=== PATIENT | male | born 1970 | race African-American/Black ===

== ENCOUNTER 2016-10-29 10:20 | Inpatient (IN) ==
[2016-10-29] MEDS ORDERED: MAGNESIUM SULF RIDER 4 GM in PREMIX 1 EACH IV PRN (10:45)
[2016-10-29] MEDS ORDERED: ZALEPLON 5 MG CAPSULE PO PRN (10:45)
[2016-10-29] MEDS ORDERED: DOCUSATE SODIUM 100 MG CAPSULE PO PRN (10:45)
[2016-10-29] MEDS ORDERED: ONDANSETRON 4 MG/2 ML VIAL IV PRN (10:45)
[2016-10-29 12:02] LABS: Basophils % 0.4 % (0.0-0.8); Eosinophils % 0.1 % (0.00-10.9); Hematocrit 47.3 VOL% (42.0-52.0); Hemoglobin 15.9 GM/DL (14.0-18.0); Immature Granulocytes % 0.3 %; Immature Granulocytes Absolute 0.02 #; Lymphocytes # 1.3 10*3/uL (1.4-4.0); Lymphocytes % 18.6 % (21.2-54.2); Mean Corpuscular HGB Conc 33.6 GM/DL (32-36); Mean Corpuscular Hemoglobin 29 PG (27-34); Mean Corpuscular Volume 84.8 FL (87-102); Mean Platelet Volume 9.7 FL (9.6-12.0); Monocytes # 0.8 10*3/uL (0.11-0.8); Monocytes % 12.2 % (1.7-12.7); Neutrophils # 4.6 10*3/uL (1.4-7.4); Neutrophils % 68.4 % (38.7-73.9); Platelet Count 233 T/CUMM (130-400); Red Blood Count 5.58 MC/CUMM (3.8-5.5); Red Cell Distribution Width 13.8 % (9.3-17.3); White Blood Count 6.8 T/CUMM (4-12)
--- NOTE | 2016-10-29 12:08 | EKG Report ---
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
[2016-10-29] MEDS ORDERED: DILTIAZEM 50 MG/10 ML VIAL IV ONE ×2 (12:20→12:23)
[2016-10-29] MEDS ORDERED: DILTIAZEM 100 MG VIAL.ADD IV ONE (12:21)
--- NOTE | 2016-10-29 12:27 | Cardiology History & Physical ---
<Lauren Joyce - Last Filed: 10/29/16 13:39> Assessment and Plan - Time spent with patient Time spent with patient: Greater than 30 minutes (1) Dyspnea Status: Acute Assessment and plan: SEE PLAN OF CARE LISTED BELOW. Current Visit: Yes (2) Atrial fibrillation with rapid ventricular response Status: Acute Assessment and plan: SEE PLAN OF CARE LISTED BELOW. Current Visit: Yes (3) Paroxysmal a-fib Status: Chronic Assessment and plan: SEE PLAN OF CARE LISTED BELOW. Current Visit: Yes (4) Acute DVT (deep venous thrombosis) Status: Acute Assessment and plan: SEE PLAN OF CARE LISTED BELOW. Current Visit: Yes (5) History of factor VIII deficiency Status: Acute Assessment and plan: SEE PLAN OF CARE LISTED BELOW. Current Visit: Yes (6) Cardiomyopathy Status: Chronic Assessment and plan: SEE PLAN OF CARE LISTED BELOW. 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 Franklin is a 46 year old male without known history of coronary artery disease, routinely followed by [place] [facility]. Cardiac risk factors include: Obesity, hypertension, hypercholesterolemia and sedentary lifestyle. Past medical history includes: Atrial fibrillation (has not been chronically anticoagulated due to bleeding disorder), factor VII deficiency, hypothyroidism , obstructive sleep apnea, GERD and systolic heart failure. Patient reports that he just underwent heart catheterization a few weeks ago at [facility] that was negative. I have requested patient's records from [place] [facility]. Patient was seen and examined and the CCU. He reports that he presented to [place] [facility] earlier with complaints of chest pain and shortness of breath. There he was diagnosed with acute DVT. He just recently underwent LHC 1-2 weeks ago and he and his report that he has been sedentary since that time. His chest pain is worse with a deep breath. No exertional component. Also confirms right leg swelling and pain. Patient is a poor historian. Apparently , there is a questionable factor VII deficiency. Patient does not know much information about this. He has never been seen by health workers. He does not know who diagnosed him with this disorder. Dr. Ocampo spent greater than 30 minutes discussing with physicians at [facility] regarding patient's medical history and plan of care. Apparently, patient was directly admitted to our facility from [facility] for further evaluation of his hypoxemia. PE was suspected and they felt that he possibly could benefit from EKOS procedure. Patient was seen and examined along with Dr. Ocampo in the CCU. Patient is dyspneic and tachypneic. Oxygen saturations are stable at 93%. Currently on Ventimask. Patient is without complaints of chest pain, heaviness or tightness. Echocardiogram currently being performed. Will await these results as well as CTA before making further recommendations. Unfortunately, patient does have a suspected coagulopathy. For this reason, no anticoagulation will be ordered at this time. Stat PT and PTT pending. Dr. Maldonado has been consulted for further recommendations. I will further discuss with Dr. Melissa and await further recommendations. IMPRESSION AND PLAN 1. DYSPNEA, PE SUSPECTED- Pulmonary embolism cannot be ruled out. Echocardiogram results are pending. These results will be reviewed. After discussing with Dr. Ocampo, stat CT PE protocol ordered. Patient's creatinine is 1.6. Will monitor renal function closely. Daily BMP. Unfortunately, patient has a suspected coagulopathy, reported from [facility]. For this reason, no anticoagulation will be ordered at this time which makes EKOS procedure undesirable. Stat PT and PTT pending. Dr. Maldonado has been consulted for further recommendations. 2. ATRIAL FIBRILLATION WITH RAPID VENTRICULAR RESPONSE - Patient does have history of paroxysmal atrial fibrillation. Now with RVR. Patient has not been chronically anticoagulated in the past due to history of questionable bleeding disorder. IV Cardizem has been ordered for rate control. Will hold off on adding anticoagulation at this time given patient's questionable factor VIII deficiency. Hematology consulted. 3. ACUTE DVT - Venous Dopplers at [facility] revealed DVT to right popliteal vein. Superficial thrombophlebitis right greater saphenous vein. Stat PT and PTT pending. At this point, we are unsure if patient can tolerate anticoagulation. Hematology consulted. 4. HISTORY OF FACTOR VII DEFICIENCY - Hematology consulted. Will hold off on anticoagulation until we receive his recommendations. 5. HISTORY OF NONISCHEMIC CARDIOMYOPATHY- Echocardiogram pending. LHC done 1 to weeks ago revealed normal coronaries per his report. Beta-juan antonio has been initiated. Avoiding CAROL inhibitor/ARB due to fear of worsening renal function. Once patient's home medications have been entered into EMR these will be reconciled. Not Allergies Allergy/AdvReac Type Severity Reaction Status Date / Time No Known Allergies Allergy Verified 10/29/16 12:23 - Constitutional Constitutional: Present: as per HPI, fatigue, lethargy, malaise, weakness, weight gain. Absent: fever(s), frequent falls, weight loss - Cardiovascular Cardiovascular: Present: as per HPI, chest pain at rest, diaphoresis, dyspnea, dyspnea on exertion, edema, orthopnea, palpitations. Absent: radiating jaw, neck or arm pain, lightheadedness, PND - Respiratory Respiratory: Present: as per HPI, dyspnea, dyspnea on exertion, snoring, pain on inspiration. Absent: cough, wheezing, change in phlegm color - Gastrointestinal Gastrointestinal: Present: as per HPI, heartburn. Absent: change in bowel habits, coffee ground emesis, constipation, hematemesis, hematochezia, melena, nausea, vomiting - Neurological Neurological: Present: as per HPI. Absent: abnormal gait, abnormal speech, behavioral changes, dizziness, syncope - Hematologic/Lymphatic Hematologic/Lymphatic: Present: as per HPI, easy bleeding Medical,Surgical,& Family Hx - Medical History Cardio: History of: Hypertension, Cardiovascular Problems No history of: Aneurysm, Cardiac Dysrhythmia, Cerebrovascular Disease, CHF, [place], Pacemaker, PVD, Valvular Heart Disease Psychological: No history of: Anxiety Disorders, Behavior Problems, Bipolar Disorder, Depression, Previous Suicide Attempt, Psychiatric/Substance Abuse Tx, Schizophrenia, Violent Behavior, Psychiatric Problems Neurology: No history of: Brain Aneurysm, Cerebral Hemorrhage, Cerebrovascular Accident , Cerebral Palsy, Dementia, Migraine, Multiple Sclerosis, Parkinson's Disease, Peripheral Neuropathy, Seizures, TIA, Vertigo, Neurologocal Cancer Endocrine: History of: Thyroid Disorder Respiratory: History of: Obstructive Sleep Apnea, Respiratory Problems Hematology: History of: Bleeding Problems, Clotting Problems, Blood Disorders - Surgical History Cardiac Surgeries: Sugical HX of: Cardiac Catheterization Patient Denies: Femoral-Popliteal Bypass Graft, Cardiac Surgery, Carotid Endarterectomy, Internal Defibrillator, Vascular Access Devices Thoracic Surgeries: Patient denies;: Organ Transplant, Lobectomy Neurologic Surgeries: Patient denies: Brain Aneurysm, Cerebral Hemorrhage, Neurologic Surgery HEENT Surgeries: Patient denies: Carotid Endarterectomy, Eye Surgery (LEGALLY BLIND), Thyroid Surgery Abdominal Surgeries: Patient denies: Abdominal Surgery, Appendectomy, Cholecystectomy, Colonoscopy , Gastric Bypass Surgery, EGD, Hernia Repair, Splenectomy - Family History Family History: Reports;: Family Hypertension (BROTHER) - Social History Smoking Status: Never smoker Frequency of Alcohol Use: Occasionally Type of Drug Use: Unknown Marital Status: Lives With:: Spouse Functional capacity: independent ambulation Cardiology Physical Exam - Constitutional Vitals: Intake and Output 10/28/16 10/29/16 10/29/16 22:59 06:59 14:59 Other: Weight 203 lb 6 oz Patient Weight 10/30/16 06:59 Weight 203 lb 6 oz Exam: General: Appears well with no apparent distress. Pleasant and cooperative. Appears comfortable. HEENT: PERRL, normocephalic, atraumatic. Mucous membranes moist. No jaundice noted. Conjunctiva moist and clear, sclerae anicteric Neck: No JVD/HJR, no thyromegaly or lymphadenopathy noted. No carotid bruit appreciated Cardiac: Irregular rate and rhythm. Lungs: Decreased lung sounds. Requiring oxygen Via Ventimask. Abdomen: Soft, bowel sounds normoactive. Nontender and nondistended. No abdominal bruit or thrill noted. No masses noted. Extremities: No clubbing, cyanosis noted. Trace edema to bilateral lower extremities. Upper extremity pulses 2+. Lower extremity pulses 2+. Capillary refill less than 3 seconds. Skin: No unusual lesions or rashes. No skin breakdown appreciated. Neuro: Awake, alert and oriented 3. Moves all extremities well without hemiparesis or paralysis. No essential tremor is appreciated. Result/EKG - Labs CBC & BMP: 10/29/16 11:55 10/29/16 11:55 Lab Results: I have reviewed the past 24 hour labs Labs: Laboratory Results - last 24 hr 10/29/16 11:55 WBC 6.8 RBC 5.58 H Hgb 15.9 Hct 47.3 MCV 84.8 L MCH 29 MCHC 33.6 RDW 13.8 Plt Count 233 MPV 9.7 Neut % (Auto) 68.4 Lymph % (Auto) 18.6 L [place] % (Auto) 12.2 Eos % (Auto) 0.1 Baso % (Auto) 0.4 Neut # (Auto) 4.6 Lymph # (Auto) 1.3 L [place] # (Auto) 0.8 Eos # (Auto) 0.0 Baso # (Auto) 0.0 Immature Gran % 0.3 Nucleated RBC % 0.0 Immature Gran # 0.02 Nucleated RBCs # 0.00 Immature Plt Fraction 0.0 Quality Measures - Stroke Symptom Onset Unknown: No <Raymond Ocampo - Last Filed: 10/29/16 14:05> History of Present Illness History of present illness: Mr. Franklin is a 46 year old male Cardiology Physical Exam - Constitutional Vitals: Vital Signs Temp Pulse Resp BP Pulse Ox 97.7 F 80 22 129/83 99 10/29/16 11:30 10/29/16 13:30 10/29/16 13:30 10/29/16 13:30 10/29/16 13:30 Intake and Output 10/28/16 10/29/16 10/29/16 23:59 07:59 15:59 Other: Weight 92.249 kg Patient Weight 10/29/16 23:59 Weight 92.249 kg Result/EKG - Labs CBC & BMP: 10/29/16 11:55 10/29/16 11:55 Labs: Laboratory Results - last 24 hr 10/29/16 10/29/16 10/29/16 11:55 11:55 11:55 WBC 6.8 RBC 5.58 H Hgb 15.9 Hct 47.3 MCV 84.8 L MCH 29 MCHC 33.6 RDW 13.8 Plt Count 233 MPV 9.7 Neut % (Auto) 68.4 Lymph % (Auto) 18.6 L [place] % (Auto) 12.2 Eos % (Auto) 0.1 Baso % (Auto) 0.4 Neut # (Auto) 4.6 Lymph # (Auto) 1.3 L [place] # (Auto) 0.8 Eos # (Auto) 0.0 Baso # (Auto) 0.0 Immature Gran % 0.3 Nucleated RBC % 0.0 Immature Gran # 0.02 Nucleated RBCs # 0.00 Immature Plt Fraction 0.0 D-Dimer, Quantitative Sodium 141 Potassium 4.2 Chloride 105 Carbon Dioxide 28 Anion Gap 12.2 BUN 17 Creatinine 1.60 H GFR Calculation 67 BUN/Creatinine Ratio 10.00 Glucose 107 H Calculated Osmolality 282.3 Calcium 9.2 Total Bilirubin 1.10 H AST 25 ALT 28 Alkaline Phosphatase 114 Total Creatine Kinase CK-MB (CK-2) Troponin I B-Natriuretic Peptide Total Protein 8.2 Albumin 3.4 Globulin 4.8 H Albumin/Globulin Ratio 0.7 L TSH 3rd Generation 0.382 10/29/16 10/29/16 10/29/16 11:55 11:55 12:43 WBC RBC Hgb Hct MCV MCH MCHC RDW Plt Count MPV Neut % (Auto) Lymph % (Auto) [place] % (Auto) Eos % (Auto) Baso % (Auto) Neut # (Auto) Lymph # (Auto) [place] # (Auto) Eos # (Auto) Baso # (Auto) Immature Gran % Nucleated RBC % Immature Gran # Nucleated RBCs # Immature Plt Fraction D-Dimer, Quantitative 24.3 Sodium Potassium Chloride Carbon Dioxide Anion Gap BUN Creatinine GFR Calculation BUN/Creatinine Ratio Glucose Calculated Osmolality Calcium Total Bilirubin AST ALT Alkaline Phosphatase Total Creatine Kinase 59 CK-MB (CK-2) 1.2 Troponin I 0.137 H B-Natriuretic Peptide 398 H Total Protein Albumin Globulin Albumin/Globulin Ratio TSH 3rd Generation
[2016-10-29] MEDS ORDERED: DILTIAZEM INJ 100 MG in SODIUM CHLORIDE 0.9% 100 ML IV SCH (12:30)
[2016-10-29 12:33] LABS: Albumin 3.4 G/DL (3.4-5.0); Bilirubin,Total 1.1 MG/DL (0.2-1.0); Calcium 9.2 MG/DL (8.5-10.1); Osmolality,Calculated 282.3 MOS/KG (273-304); Potassium 4.2 MMOL/L (3.5-5.1); Total Protein 8.2 G/DL (6.4-8.3)
[2016-10-29 12:44] LABS: Troponin I Only 0.137 NG/ML (0.00-0.045)
[2016-10-29] MEDS: PANTOPRAZOLE 40 MG TABLET PO SCH (12:53)
--- NOTE | 2016-10-29 13:31 | ECHO Report ---
Jono Franklin Exam Date: 10/29/2016 12:00 Referring Physician: Technologist: Gertrude Aguilar Age: 46 Ht (in): 64 Wt (lb): 209 Gender: M Exam Location: [facility] Echo Indications: PE BP: / HR: Rhythm: Sinus Technical Quality: average IMPRESSIONS The overall ejection fraction appears to be approximately 25-30%. Diastolic parameters are equivocal the patient appears to be in atrial fibrillation. There is mild concentric left ventricular hypertrophy. There is paradoxical wall motion of the intraventricular septum and flattening in both systole and diastole suggesting right sided pressure and volume overload. The RV is enlarged and hypokinetic with mildly elevated right sided pressure suggesting acute right sided acute pressure overload. MEASUREMENTS (Male / Female) Normal Values 2D ECHO LV Diastolic Diameter PLAX 5.2 cm 4.2 - 5.9 / 3.9 - 5.3 cm LV Systolic Diameter PLAX 4.5 cm LV Fractional Shortening PLAX 14.0 % IVS Diastolic Thickness 1.4 cm 0.6 - 1.0 / 0.6 - 0.9 cm LVPW Diastolic Thickness 0.9 cm 0.6 - 1.0 / 0.6 - 0.9 cm RV Internal Dim ED PLAX 4.5 cm Aortic Root Diameter 3.0 cm LA Systolic Diameter LX 4.0 cm 3.0 - 4.0 / 2.7 - 3.8 cm DOPPLER TR Peak Velocity 288.0 cm/s TR Peak Gradient 33.2 mmHg FINDINGS Left Ventricle The overall ejection fraction appears to be approximately 25-30%. There is paradoxical wall motion of the intraventricular septum. Diastolic parameters are equivocal the patient appears to be in atrial fibrillation. There is mild concentric left ventricular hypertrophy Right Ventricle The right ventricular cavity is enlarged and hypokinetic globally. There is a prominent moderator band. Right Atrium Right atrium is enlarged Left Atrium Left atrium is mildly enlarged Mitral Valve The mitral valve is normal there is no stenosis or significant regurgitation Aortic Valve Aortic valve is tricuspid. There is no evidence of aortic stenosis. There is mild aortic insufficiency Tricuspid Valve Tricuspid valve is normal there is mild tricuspid regurgitation peak velocity 2.34 m per sec which corresponds with a right ventricular systolic pressure 20 mmHg plus right atrial pressure Pulmonic Valve The pulmonic valve is not well seen there is no abnormality there is no insufficiency Pericardium There is no pericardial effusion Aorta Limited visualized portion of the thoracic aorta is normal. Joanna Sosa (Electronically Signed) Final Date: 29 October 2016 13:09
--- NOTE | 2016-10-29 13:55 | CT Report ---
CT chest pulmonary embolism Indication: Shortness of breath, pulmonary embolism Comparison: None available Technique: Axial CT imaging of the chest is performed with intravenous contrast. Contrast dose is 80 cc of Omnipaque 350. Findings: Large amount of thrombus is present in the pulmonary arteries, more prominent on the right side and nearly occluding the right main pulmonary artery. Moderate amount is present on the left extending in both upper and lower lobe branches. The main pulmonary arteries appears increased in caliber. Heart size is enlarged. There are some coronary artery calcification and/or small stent present. Otherwise the heart, mediastinum and great vessels appear within normal limits. Lung parenchyma shows no evidence of airspace disease or abnormal density. No effusion or pneumothorax is present. Impression: Large pulmonary thromboembolism, nearly completely occluding the right main pulmonary artery. The moderate amount is present on the left. Dr. Sosa was notified of the findings at 1:[address] exam was performed using one or more the following dose reduction techniques: Automated exposure control, adjustment of the MA and/or KV according to patient size, or use of iterative reconstruction technique. PROCEDURE INTERPRETED AT [facility] DEPARTMENT OF RADIOLOGY Final Report Signed by: Dr. Sushil Odonnell
--- NOTE | 2016-10-29 14:10 | EKG Report ---
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
[2016-10-29 14:41] LABS: Partial Thromboplastin Time 29.4 SECS (0-40)
[2016-10-29 14:47] LABS: INR 3.8; PT Patient Result 39.9 SECS
--- NOTE | 2016-10-29 14:58 | Event Note ---
I have had extensive discussions with Dr. Arriaga, Dr. Maldonado, Dr. Ocampo and Dr. Lira as well as the patient and his fiancee'. This is a very difficult situation and the patient is critically ill but hemodynamic stable with sats at 94% on Venti Mask. He has an occluded right main pulmonary artery and very large clot burden in the left pulmonary artery. After lengthy discussion with all involved, I feel that the best approach in this situation is to NOT give thrombolytics and place an IVC filter. The report from the labs at [place] is that the patient has Factor VII deficiency. His INR is greater and 4 and he is at high risk of BOTH hemorrhagic and throbotic complications of all procedures involved. Dr. Bernardo has kindly agreed to place an IVC filter. 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 The patient and his fiancee ' voice understanding.
--- NOTE | 2016-10-29 15:38 | IR History and Physical Update ---
IR Pre-Procedure - History and Physical H&P was reviewed, the patient examined and there: are no changes in the patients condition since last H&P was completed. Reason for procedure:: extensive PE with h/o VII deficiency bleeding disorder - Dictation Physical: refer to H&P completed by admitting physician - Physical Exam Vital Signs: Last Vital Signs Temp 97.7 F 10/29/16 11:30 Pulse 80 10/29/16 13:30 Resp 22 10/29/16 13:30 BP 129/83 10/29/16 13:30 Pulse Ox 99 10/29/16 13:30 Mental Status: alert and oriented Heart: regular rate and rhythm Lung: clear to auscultation Abdomen: within normal limits - Sedation IR anesthesia plan for sedation: none ASA Class: III Airway Assessment: Class III: Soft palate, base of uvula visible - Risks Risks: Procedures explained. Risks discussed include, but not limited to, the following:[ bleeding, right heart failure and cardiac arrest, injury to vessels] All questions answered. The following alternatives were discussed:[ none] Risks and benefits discussed with: patient, spouse Consent obtained from: patient, spouse Assessment and Plan - Time spent with patient Time spent with patient: Less than 30 minutes (1) Venous thromboembolism (VTE) Problem details: Extensive PE bilaterally, h/o bleeding d/o and risk of thrombolysis is high Status: Acute Assessment and plan: no plan for thrombolysis will place an IVC filter via jugular approach and leave central venous catheter in place at the puncture site Patient and family were counseled of the risks and intended benefits and agree to proceed Current Visit: Yes
--- NOTE | 2016-10-29 16:51 | Hematology Consult ---
History of Present Illness - Consult Narrative History of present illness: I will see Mr. Franklin in the am. I have discussed his case with Cardiology numerous times today. He is here with a large R PE. He has known Factor 7 deficiency. I will recheck Factor levels and vWb levels. We are all in agreement to hold thrombolytics and anticoagulants given his underlying Factor deficiency. We will place a IVC filter. CC: Joanna Sosa, DO - Home Medications and Allergies Home Medications: Home Medications Medication Instructions Recorded Confirmed Type Aspirin [Ecotrin] 81 mg PO DAILY 10/29/16 10/29/16 History Carvedilol [Coreg] 6.25 mg PO BID 10/29/16 10/29/16 History Digoxin Tab [Lanoxin Tab] 0.25 mg PO DAILY@1300 10/29/16 10/29/16 History Furosemide Tab [Lasix Tab] 40 mg PO DAILY 10/29/16 10/29/16 History Levothyroxine Tab [Synthroid Tab] 100 mcg PO DAILY 10/29/16 10/29/16 History Lisinopril 2.5 mg PO DAILY 10/29/16 10/29/16 History Omeprazole [Prilosec] 20 mg PO DAILY 10/29/16 10/29/16 History dilTIAZem HCl [Diltiazem 24Hr ER] 300 mg PO DAILY 10/29/16 10/29/16 History Allergies/Adverse Reactions: Allergies Allergy/AdvReac Type Severity Reaction Status Date / Time No Known Allergies Allergy Verified 10/29/16 12:23 Medical,Surgical,& Family Hx - Medical History Cardio: History of: Hypertension, Cardiovascular Problems No history of: Aneurysm, Cardiac Dysrhythmia, Cerebrovascular Disease, CHF, [place], Pacemaker, PVD, Valvular Heart Disease Psychological: No history of: Anxiety Disorders, Behavior Problems, Bipolar Disorder, Depression, Previous Suicide Attempt, Psychiatric/Substance Abuse Tx, Schizophrenia, Violent Behavior, Psychiatric Problems Neurology: No history of: Brain Aneurysm, Cerebral Hemorrhage, Cerebrovascular Accident , Cerebral Palsy, Dementia, Migraine, Multiple Sclerosis, Parkinson's Disease, Peripheral Neuropathy, Seizures, TIA, Vertigo, Neurologocal Cancer Endocrine: History of: Thyroid Disorder Respiratory: History of: Obstructive Sleep Apnea, Respiratory Problems Hematology: History of: Bleeding Problems, Clotting Problems, Blood Disorders - Surgical History Cardiac Surgeries: Sugical HX of: Cardiac Catheterization Patient Denies: Femoral-Popliteal Bypass Graft, Cardiac Surgery, Carotid Endarterectomy, Internal Defibrillator, Vascular Access Devices Thoracic Surgeries: Patient denies;: Organ Transplant, Lobectomy Neurologic Surgeries: Patient denies: Brain Aneurysm, Cerebral Hemorrhage, Neurologic Surgery HEENT Surgeries: Patient denies: Carotid Endarterectomy, Eye Surgery (LEGALLY BLIND), Thyroid Surgery Abdominal Surgeries: Patient denies: Abdominal Surgery, Appendectomy, Cholecystectomy, Colonoscopy , Gastric Bypass Surgery, EGD, Hernia Repair, Splenectomy - Family History Family History: Reports;: Family Hypertension (BROTHER) - Social History Smoking Status: Never smoker Frequency of Alcohol Use: Occasionally Type of Drug Use: Unknown Exam - Constitutional Vitals: Period Temp Pulse Resp BP Sys/Baker Pulse Ox Last 24 Hr 97.7 F 72-157 11-23 110-152/67-116 92-99 Results - Labs CBC & BMP: 10/29/16 11:55 10/29/16 11:55 Quality Measures - Stroke Symptom Onset Unknown: No
--- NOTE | 2016-10-29 17:04 | Post Interventional Procedure ---
Pre-op diagnosis: massive PE burden with h/o bleeding disorder (clotting factor disorder) Post-op diagnosis: same Procedure: IVC filter placement Central line placement Contrast: 30 mL Flouroscopy: 4.8 min total for both procedures Radiologist: Lenny Lira Anesthesia: local Specimens: none sent Estimated blood loss: none Complications: none Condition: stable Description/Findings: infrarenal Cook IVC filter placement done without difficulty right IJ large bore central venous catheter placement done for access and due to risk of bleeding Assessment and Plan - Time spent with patient Time spent with patient: Greater than 30 minutes (1) Venous thromboembolism (VTE) Problem details: Extensive PE bilaterally, h/o bleeding d/o and risk of thrombolysis is high Status: Acute Assessment and plan: no plan for thrombolysis will place an IVC filter via jugular approach and leave central venous catheter in place at the puncture site Patient and family were counseled of the risks and intended benefits and agree to proceed Current Visit: Yes
--- NOTE | 2016-10-29 17:12 | Interventional Radiology Rpt ---
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 However, the patient has developed extensive bilateral pulmonary emboli with signs of right heart strain and shortness of breath. Patient has stabilized and heart rate now mildly tachycardic but in sinus rhythm. Patient reports no significant shortness of breath or new chest pain on my interview prior to the procedure. Physician[s]: Dr. Lira Procedure: The patient was advised of the benefits, risks, and alternatives of the procedure and informed consent was obtained. A time out was performed with verification of the patient's name, MRN, site of procedure, and type of procedure to be performed. The patient was positioned in the supine position on the angiographic table. The site was prepped and draped in the usual sterile fashion. Local anesthesia only was used for the procedure. Preliminary ultrasound of the right neck was performed, demonstrating the internal jugular vein to be normal in caliber and easily compressible. The right internal jugular vein was accessed using a microintroducer system. Ultrasound guidance was used for vascular access. Image of vascular access was retained for patient's medical record. A 0.035 J-wire was placed into the peripheral inferior vena cava. An inferior venacavogram was then performed, demonstrating a normal caliber inferior vena cava without filling defects and the renal vein inflows at the L1-L2 level. No caval anomalies were identified. A wire was then passed into the inferior vena cava and the filter sheath advanced over the wire. A Cook Celect inferior vena cava filter was then advanced through the sheath and positioned within the infra-renal inferior vena cava. The filter was then deployed in the usual fashion. Positioning was confirmed fluoroscopically. The sheath was then removed and hemostasis obtained with manual compression. The patient tolerated the procedure well and was returned to the PRU in stable condition. EBL: < 5 mL. Complications: None. Total fluoroscopy time: 4.7 minutes Total number of images for the procedure: 52 Conclusions: 1. Normal cavogram. 2. Successful deployment of a Cook Celect retrievable inferior vena cava filter in the infra-renal inferior vena cava. 3. The patient should return for filter retrieval if/when it is no longer needed. PROCEDURE INTERPRETED AT [facility] DEPARTMENT OF RADIOLOGY Final Report Signed by: Lenny Lira
--- NOTE | 2016-10-29 17:14 | Interventional Radiology Rpt ---
IR fluoro guide cv cath, IR cvc insert nt >5 Central Line placement using fluoroscopic guidance Clinical Information: Following placement of an IVC filter. The right internal or access was converted to a central venous catheter. Physician[s]: Dr. Lira Procedure: The patient was advised of the benefits, risks, and alternatives of the procedure and informed consent was obtained. A time out was performed with verification of the patient's name, MRN, site of procedure, and type of procedure to be performed. The patient was positioned in the supine position on the angiographic table. The site was prepped and draped in the usual sterile fashion. Local anesthesia only was used for the procedure. A director software development radiograph reveals no relevant abnormality. The J-wire was utilized and a 12 [place] triple lumen central line was placed with the tip at the cavoatrial junction. All lumens aspirate and flush without difficulty. The catheter was sutured in place using 3-0 silk and covered with a sterile dressing. The patient tolerated the procedure well and was returned to the PRU in stable condition. EBL: < 5 mL. Complications: None. Total Fluoroscopy Time: 0.1 minutes. Total number of images for the procedure: 1 Conclusion: Successful placement of a triple lumen central venous catheter via the right internal jugular vein. The catheter is ready for immediate use. PROCEDURE INTERPRETED AT [facility] DEPARTMENT OF RADIOLOGY Final Report Signed by: Lenny Lira
--- NOTE | 2016-10-29 17:41 | Electrophysiology Consultation ---
History of Present Illness - Data of Consult Patient: new to practice Consult date: 10/29/16 Requesting Physician: Joanna Sosa - Consult Narrative Reason for consult: AF/AFL History of present illness: Mr. Franklin is a 46 year old BM, who was directly transferred from [facility]. He was recently diagnosed with nonischemic cardiomyopathy, ejection fraction 25-30%. He was also diagnosed with factor VII deficiency, thrombotic disorder, with high INR. He was found to have DVT, and massive PE, with hypotension. Had episodes of atrial flutter, RVR, which were refractory to medical management. Upon transfer to [facility], CT angiogram showed massive PE, subtotally occluded right pulmonary artery, also, with clot burden in the left pulmonary artery. Echo shows ejection fraction 25-30%, dilated, hypokinetic right ventricle, with Sellers sign. Blood pressure is now stable. He was given metoprolol, Cardizem drip, and eventually, converted to sinus rhythm. Review of telemetry and EKG strips, he had episodes of atrial fibrillation, typical and atypical flutters. Currently, he is feeling comfortable, with oxygen mask, slightly dyspneic. An IVC filter was placed by IR earlier today. Thrombolysis or IV heparin was not pursued due to his high risk hematological disorder. CC: Joanna Sosa, DO - Home Medications and Allergies Home Medications: Home Medications Medication Instructions Recorded Confirmed Type Aspirin [Ecotrin] 81 mg PO DAILY 10/29/16 10/29/16 History Carvedilol [Coreg] 6.25 mg PO BID 10/29/16 10/29/16 History Digoxin Tab [Lanoxin Tab] 0.25 mg PO DAILY@1300 10/29/16 10/29/16 History Furosemide Tab [Lasix Tab] 40 mg PO DAILY 10/29/16 10/29/16 History Levothyroxine Tab [Synthroid Tab] 100 mcg PO DAILY 10/29/16 10/29/16 History Lisinopril 2.5 mg PO DAILY 10/29/16 10/29/16 History Omeprazole [Prilosec] 20 mg PO DAILY 10/29/16 10/29/16 History dilTIAZem HCl [Diltiazem 24Hr ER] 300 mg PO DAILY 10/29/16 10/29/16 History Allergies/Adverse Reactions: Allergies Allergy/AdvReac Type Severity Reaction Status Date / Time No Known Allergies Allergy Verified 10/29/16 12:23 Medical,Surgical,& Family Hx - Medical History Cardio: History of: Hypertension, Cardiovascular Problems No history of: Aneurysm, Cardiac Dysrhythmia, Cerebrovascular Disease, CHF, CA, Pacemaker, PVD, Valvular Heart Disease Psychological: No history of: Anxiety Disorders, Behavior Problems, Bipolar Disorder, Depression, Previous Suicide Attempt, Psychiatric/Substance Abuse Tx, Schizophrenia, Violent Behavior, Psychiatric Problems Neurology: No history of: Brain Aneurysm, Cerebral Hemorrhage, Cerebrovascular Accident , Cerebral Palsy, Dementia, Migraine, Multiple Sclerosis, Parkinson's Disease, Peripheral Neuropathy, Seizures, TIA, Vertigo, Neurologocal Cancer Endocrine: History of: Thyroid Disorder Respiratory: History of: Obstructive Sleep Apnea, Respiratory Problems Hematology: History of: Bleeding Problems, Clotting Problems, Blood Disorders - Surgical History Cardiac Surgeries: Sugical HX of: Cardiac Catheterization Patient Denies: Femoral-Popliteal Bypass Graft, Cardiac Surgery, Carotid Endarterectomy, Internal Defibrillator, Vascular Access Devices Thoracic Surgeries: Patient denies;: Organ Transplant, Lobectomy Neurologic Surgeries: Patient denies: Brain Aneurysm, Cerebral Hemorrhage, Neurologic Surgery HEENT Surgeries: Patient denies: Carotid Endarterectomy, Eye Surgery (LEGALLY BLIND), Thyroid Surgery Abdominal Surgeries: Patient denies: Abdominal Surgery, Appendectomy, Cholecystectomy, Colonoscopy , Gastric Bypass Surgery, EGD, Hernia Repair, Splenectomy - Family History Family History: Reports;: Family Hypertension (BROTHER) - Social History Smoking Status: Never smoker Frequency of Alcohol Use: Occasionally Type of Drug Use: Unknown 12 point system: reviewed and no additional remarkable complaints except as stated Exam - Constitutional Vitals: Period Temp Pulse Resp BP Sys/Baker Pulse Ox Last 24 Hr 97.7 F 72-157 11-23 110-152/67-116 92-99 General appearance: mild distress, over weight - Head Head exam: Present: normal inspection. Absent: contusion, hematoma - Eye Eye exam: Absent: periorbital swelling, laceration to eyelids Pupils: Absent: dilated - ENT ENT exam: Present: normal external ear exam - Neck Neck exam: Present: normal inspection. Absent: thyromegaly - Respiratory Respiratory exam: Present: clear to auscultation bilaterally. Absent: wheezes - Cardiovascular Cardiovascular exam: Present: JVD, systolic murmur, tachycardia - GI/Abdominal GI/Abdominal exam: Present: normal bowel sounds, distended. Absent: firm, guarding - Extremities Exam Extremities exam: Present: normal inspection, normal capillary refill. Absent: edema - Neurological Exam Neurological exam: Present: alert, oriented X3 - Psychiatric Psychiatric exam: Present: normal affect, normal mood - Skin Skin exam: Present: normal color, warm. Absent: cyanosis Results - Labs CBC & BMP: 10/29/16 11:55 10/29/16 11:55 Lab Results: I have reviewed the past 24 hour labs Assessment and Plan (1) Atrial fibrillation with rapid ventricular response Status: Acute Assessment and plan: 46-year-old black male, with factor VII deficiency, extensive DVT, massive PE, not a candidate for equals, thrombolyzes or even heparinization. Atrial fibrillation, multiple atrial flutter, RVR. Now in sinus rhythm. -AF/AFL. Risk of arrhythmia recurrence is high. Has severe cardiomyopathy and unfortunately, his clot burden, pulmonary pressure will likely remain high. -Start IV amiodarone drip for rhythm/rate control. -DC Cardizem. Avoid, if able, to avoid further depression of systolic function. -Continue metoprolol, may increase, if the atrial arrhythmia recurs, with RVR, despite amiodarone. -Recommend to continue digoxin, carefully monitor renal function. May help with RV+LV dysfunction and RVR -His prothrombotic disorder likely also increases the risk of left atrial appendage clot, embolic issues. At this time, there is not much we can do about this, will continue to attempt strict rhythm control. Eventually, when recovers, he could be a candidate for left atrial appendage closure, although even for this, he would ideally need to be a candidate for at least short-term anticoagulation. -Unless there is a hematological contraindication, we may consider antiplatelets -if possible, I suggest to start aspirin 325 mg daily. -If the arrhythmia remains symptomatic and refractory to medical management, ablation will be an option. Right now, DVT and presence of an IVC filter are contraindications to this. Current Visit: Yes (2) Dyspnea Status: Acute Current Visit: Yes (3) Acute DVT (deep venous thrombosis) Status: Acute Current Visit: Yes (4) History of factor VIII deficiency Status: Acute Current Visit: Yes (5) Cardiomyopathy Status: Chronic Current Visit: Yes (6) Venous thromboembolism (VTE) Problem details: Extensive PE bilaterally, h/o bleeding d/o and risk of thrombolysis is high Status: Acute Current Visit: Yes Quality Measures - Stroke Symptom Onset Unknown: No
[2016-10-29 17:59] LABS: ABG Base Excess 1.2 MMOL/L (-2.5-2.5); ABG HCO3 25.3 MMOL/L (20-26); ABG PCO2 38.3 MM HG (35-48); ABG PH 7.428 (7.35-7.45); ABG PO2 63.8 MM HG (80-95); ABG TCO2 21.3 MMOL/L (23-27); Allen Test Positive; Pt O2 Delivery Device Venturi Mask
[2016-10-29] MEDS ORDERED: AMIODARONE INJ 450 MG in DEXTROSE 5% 241 ML IV SCH (18:00)
[2016-10-29] MEDS: METOPROLOL TARTRATE 25 MG TABLET PO SCH ×2 (18:06→22:30)
[2016-10-29 20:16] LABS: Troponin I Only 0.166 NG/ML (0.00-0.045)
--- NOTE | 2016-10-30 00:27 | EKG Report ---
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
[2016-10-30] MEDS: AMIODARONE INJ 450 MG in DEXTROSE 5% 241 ML IV SCH ×2 (00:45→18:21)
--- NOTE | 2016-10-30 06:10 | EKG Report ---
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
[2016-10-30 06:31] LABS: Troponin I Only 0.172 NG/ML (0.00-0.045)
[2016-10-30 06:41] LABS: Risk Ratio 2.89; VLDL CHOLESTEROL 21.6 MG/DL
--- NOTE | 2016-10-30 07:02 | Hematology Consult ---
Assessment and Plan - Time spent with patient Time spent with patient: Greater than 30 minutes (1) Factor VII deficiency Status: Acute Assessment and plan: This is a very difficult situation. Given his factor VII deficiency, we know that he is coagulopathic at baseline. However, reviewing the minimal literature that is available on factor VII, approximately 5% of these patients develop thrombosis. There is some case reports where using anticoagulation has been safe with no bleeding complications. At this time we have held off on thrombolytics or anticoagulants. Mr. Walker is aware of that decision and the risk that is involved with this large pulmonary emboli remaining untreated. We have placed an IVC filter to help prevent further pulmonary emboli. I will order lower extremity Doppler ultrasound. I think as long as he remains reasonably asymptomatic from the pulmonary emboli, holding anticoagulation is a sawyer choice. However, if his hypoxia or dyspnea worsens, I think we will have no choice but to start him on a heparin drip. Current Visit: Yes (2) Dyspnea Status: Acute Current Visit: Yes (3) Atrial fibrillation with rapid ventricular response Status: Acute Current Visit: Yes (4) Venous thromboembolism (VTE) Problem details: Extensive PE bilaterally, h/o bleeding d/o and risk of thrombolysis is high Status: Acute Current Visit: Yes History of Present Illness - Consult Narrative History of present illness: Mr. Franklin is a 46 year old male with a recent diagnosis of factor VII deficiency at [facility] with an activity of only 2%. This was found after presenting with an elevated PT and INR of no known etiology there. He presented back to the emergency room yesterday with chest pain at [facility] and was found to have a large right-sided pulmonary emboli. He was transferred here to [place] for possible thrombolytics. After numerous conversations with cardiology yesterday we agreed to hold thrombolytics and anticoagulation given his factor VII deficiency and place a IVC filter. He seems to be doing well and has no specific complaints this morning. He is aware of the very difficult situation that we are in with help to manage his large pulmonary emboli. I have repeated his factor levels here but of course these will take a few days to return. They will have no bearing on his current hospital stay. CC: Joanna Sosa, DO - Home Medications and Allergies Home Medications: Home Medications Medication Instructions Recorded Confirmed Type Aspirin [Ecotrin] 81 mg PO DAILY 10/29/16 10/29/16 History Carvedilol [Coreg] 6.25 mg PO BID 10/29/16 10/29/16 History Digoxin Tab [Lanoxin Tab] 0.25 mg PO DAILY@1300 10/29/16 10/29/16 History Furosemide Tab [Lasix Tab] 40 mg PO DAILY 10/29/16 10/29/16 History Levothyroxine Tab [Synthroid Tab] 100 mcg PO DAILY 10/29/16 10/29/16 History Lisinopril 2.5 mg PO DAILY 10/29/16 10/29/16 History Omeprazole [Prilosec] 20 mg PO DAILY 10/29/16 10/29/16 History dilTIAZem HCl [Diltiazem 24Hr ER] 300 mg PO DAILY 10/29/16 10/29/16 History Allergies/Adverse Reactions: Allergies Allergy/AdvReac Type Severity Reaction Status Date / Time No Known Allergies Allergy Verified 10/29/16 12:23 Medical,Surgical,& Family Hx - Medical History Cardio: History of: Hypertension, Cardiovascular Problems No history of: Aneurysm, Cardiac Dysrhythmia, Cerebrovascular Disease, CHF, DC, Pacemaker, PVD, Valvular Heart Disease Psychological: No history of: Anxiety Disorders, Behavior Problems, Bipolar Disorder, Depression, Previous Suicide Attempt, Psychiatric/Substance Abuse Tx, Schizophrenia, Violent Behavior, Psychiatric Problems Neurology: No history of: Brain Aneurysm, Cerebral Hemorrhage, Cerebrovascular Accident , Cerebral Palsy, Dementia, Migraine, Multiple Sclerosis, Parkinson's Disease, Peripheral Neuropathy, Seizures, TIA, Vertigo, Neurologocal Cancer Endocrine: History of: Thyroid Disorder Respiratory: History of: Obstructive Sleep Apnea, Respiratory Problems Hematology: History of: Bleeding Problems, Clotting Problems, Blood Disorders - Surgical History Cardiac Surgeries: Sugical HX of: Cardiac Catheterization Patient Denies: Femoral-Popliteal Bypass Graft, Cardiac Surgery, Carotid Endarterectomy, Internal Defibrillator, Vascular Access Devices Thoracic Surgeries: Patient denies;: Organ Transplant, Lobectomy Neurologic Surgeries: Patient denies: Brain Aneurysm, Cerebral Hemorrhage, Neurologic Surgery HEENT Surgeries: Patient denies: Carotid Endarterectomy, Eye Surgery (LEGALLY BLIND), Thyroid Surgery Abdominal Surgeries: Patient denies: Abdominal Surgery, Appendectomy, Cholecystectomy, Colonoscopy , Gastric Bypass Surgery, EGD, Hernia Repair, Splenectomy - Family History Family History: Reports;: Family Hypertension (BROTHER) - Social History Smoking Status: Never smoker Frequency of Alcohol Use: Occasionally Type of Drug Use: Unknown 12 point system: reviewed and no additional remarkable complaints except as stated - Constitutional Constitutional: Absent: fatigue, fever(s) - EENT Eye: Absent: loss of vision - Cardiovascular Cardiovascular ROS IM: Absent: chest pain - Respiratory Respiratory: Present: dyspnea. Absent: cough, hemoptysis Exam - Constitutional Vitals: Period Temp Pulse Resp BP Sys/Baker Pulse Ox Last 24 Hr 97.7 F-98.7 F 67-157 11-23 110-158/67-144 90-100 General appearance: normal weight, no acute distress - Head Head Exam: Present: normocephalic, atraumatic - Eye Eye Exam: Present: EOMI Pupils: Present: PERRL - ENT ENT exam: Present: normal exam, normal oropharynx - Neck Neck exam: Absent: lymphadenopathy, thyromegaly - Respiratory Respiratory exam: Present: CTAB. Absent: wheezes - Cardiovascular Cardiovascular exam: Present: RRR. Absent: JVD, systolic murmur, tachycardia - GI/Abdominal GI/Abdominal exam: Present: soft. Absent: ascites, distended, mass - Neurological Exam Neurological exam: Present: alert, oriented X3 - Psychiatric Psychiatric exam: Present: normal affect, normal mood - Skin Skin exam: Present: warm, dry Results - Labs CBC & BMP: 10/29/16 11:55 10/29/16 11:55 Lab Results: I have reviewed the past 24 hour labs Quality Measures - Stroke Symptom Onset Unknown: No
--- NOTE | 2016-10-30 07:11 | XRay Report ---
XR chest 1V portable Indication: Shortness of breath Comparison: None available Findings: The cardiac size is enlarged. There is a right internal jugular catheter with tip at the superior vena cava right atrial junction. The pulmonary vascularity is normal in caliber. No lung infiltrates, effusions, pneumothorax or other abnormality is demonstrated. Impression: Catheter position appears within normal limits. Cardiomegaly. No other acute findings. PROCEDURE INTERPRETED AT [facility] DEPARTMENT OF RADIOLOGY Final Report Signed by: Dr. Sushil Odonnell
--- NOTE | 2016-10-30 07:28 | EKG Report ---
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
[2016-10-30] MEDS: PANTOPRAZOLE 40 MG TABLET PO SCH ×3 (08:55→11:25)
[2016-10-30] MEDS: CARVEDILOL 6.25 MG TABLET PO SCH ×2 (08:55→20:31)
[2016-10-30] MEDS: LISINOPRIL 2.5 MG TABLET PO SCH (08:55)
[2016-10-30] MEDS: LEVOTHYROXINE 100 MCG TABLET PO SCH (08:55)
[2016-10-30] MEDS: ASPIRIN EC 81 MG TABLET PO SCH (08:55)
[2016-10-30] MEDS: FUROSEMIDE 40 MG TABLET PO SCH (08:55)
[2016-10-30] MEDS: METOPROLOL TARTRATE 25 MG TABLET PO SCH ×2 (08:56→20:31)
[2016-10-30] MEDS ORDERED: DILTIAZEM HCL 300 MG PO SCH (09:00)
[2016-10-30] MEDS ORDERED: LISINOPRIL 2.5 MG TABLET PO SCH (09:00)
[2016-10-30] MEDS ORDERED: FUROSEMIDE 40 MG TABLET PO SCH (09:00)
--- NOTE | 2016-10-30 09:05 | Ultrasound Report ---
Venous Doppler ultrasound bilateral lower extremities Indication: Swelling, deep venous thrombosis Comparison: None available Findings: No evidence of echogenic, noncompressible thrombus seen in the visualized veins of the extremities. Color Doppler venous waveform pattern is within normal limits. Impression: No evidence of deep venous thrombosis. Ultrasound images stored and captured. PROCEDURE INTERPRETED AT [facility] DEPARTMENT OF RADIOLOGY Final Report Signed by: Dr. Sushil Odonnell
--- NOTE | 2016-10-30 11:30 | Electrophysiology Progress Not ---
Assessment and Plan (1) Atrial fibrillation with rapid ventricular response Status: Acute Assessment and plan: 46-year-old black male, with factor VII deficiency, extensive DVT, massive PE, not a candidate for equals, thrombolyzes or even heparinization. Atrial fibrillation, multiple atrial flutter, RVR. Now in sinus rhythm. -Continue amiodarone drip. -Continue p.o. digoxin, monitor renal function. -Continue metoprolol. -Aspirin was resumed. Current Visit: Yes (2) Dyspnea Status: Acute Current Visit: Yes (3) Acute DVT (deep venous thrombosis) Status: Acute Current Visit: Yes (4) History of factor VIII deficiency Status: Acute Current Visit: Yes (5) Cardiomyopathy Status: Chronic Current Visit: Yes (6) Venous thromboembolism (VTE) Problem details: Extensive PE bilaterally, h/o bleeding d/o and risk of thrombolysis is high Status: Acute Current Visit: Yes Electrophysiology Subjective Interval history: He had a burst of A. fib last night, now heart rate back to sinus. Still using facemask, mildly dyspneic. Exam - Constitutional Vitals: Period Temp Pulse Resp BP Sys/Baker Pulse Ox Last 24 Hr 96.6 F-98.7 F 67-157 11-26 110-161/67-144 90-100 General appearance: no acute distress, over weight - Head Head exam: Present: normal inspection. Absent: contusion, hematoma - Eye Eye exam: Absent: periorbital swelling, laceration to eyelids Pupils: Absent: normal accommodation - ENT ENT exam: Present: normal external ear exam - Neck Neck exam: Absent: tenderness, thyromegaly - Respiratory Respiratory exam: Present: clear to auscultation bilaterally. Absent: decreased breath sounds - Cardiovascular Cardiovascular exam: Present: regular rate and rhythm, systolic murmur. Absent : JVD - GI/Abdominal GI/Abdominal exam: Present: normal bowel sounds. Absent: distended - Extremities Exam Extremities exam: Present: normal inspection, normal capillary refill. Absent: edema - Back Exam Back exam: Present: normal inspection - Neurological Exam Neurological exam: Present: alert, oriented X3 - Psychiatric Psychiatric exam: Present: normal affect, normal mood - Skin Skin exam: Present: normal color, warm. Absent: cyanosis Results - Labs CBC & BMP: 10/29/16 11:55 10/29/16 11:55 Lab Results: I have reviewed the past 24 hour labs Quality Measures - Stroke Symptom Onset Unknown: No
--- NOTE | 2016-10-30 11:37 | Cardiology Progress Note ---
Assessment and Plan (1) Pulmonary embolism Status: Acute Assessment and plan: SEE PLAN OF CARE LISTED BELOW. Current Visit: Yes (2) Atrial fibrillation with rapid ventricular response Status: Resolved Assessment and plan: SEE PLAN OF CARE LISTED BELOW. Current Visit: Yes (3) Paroxysmal a-fib Status: Chronic Assessment and plan: SEE PLAN OF CARE LISTED BELOW. Current Visit: Yes (4) Acute DVT (deep venous thrombosis) Status: Acute Assessment and plan: SEE PLAN OF CARE LISTED BELOW. 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 Current Visit: Yes (6) Nonischemic cardiomyopathy Status: Chronic Assessment and plan: SEE PLAN OF CARE LISTED BELOW. Current Visit: Yes (7) Hypertension Status: Chronic Assessment and plan: SEE PLAN OF CARE LISTED BELOW. Current Visit: Yes (8) Hypothyroidism Status: Acute Assessment and plan: SEE PLAN OF CARE LISTED BELOW. Current Visit: Yes (9) GERD (gastroesophageal reflux disease) Status: Chronic Assessment and plan: SEE PLAN OF CARE LISTED BELOW. Current Visit: Yes Cardiology - PN: Subj Interval history: RN FORENSIC: [place] [facility] SUMMARY Mr. Franklin is a 46 year old male without known history of coronary artery disease, routinely followed by [facility]. Cardiac risk factors include: Obesity, hypertension, hypercholesterolemia and sedentary lifestyle. Past medical history includes: Atrial fibrillation (has not been chronically anticoagulated due to bleeding disorder), factor VII deficiency, hypothyroidism , obstructive sleep apnea, GERD and systolic heart failure. Patient reports that he just underwent heart catheterization a few weeks ago at [facility] that was negative. I have requested patient's records from [facility]. He was transferred from [facility] yesterday for suspected pulmonary embolism. He underwent CT angiogram, PE protocol yesterday which revealed large pulmonary thromboembolism, nearly completely occluding the right main pulmonary artery. Moderate amount is present on the left. Venous Dopplers at [facility] revealed DVT to right popliteal vein. Superficial thrombophlebitis right greater saphenous vein. Venous Doppler at our facility was performed which revealed conflicting report. No evidence of DVT was found at our facility. Dr. Maldonado was consulted and is assisting us with management of factor VII deficiency. 2016 Patient was seen and examined in the CCU. Clinically, he is doing well this morning. Oxygen has been weaned from Ventimask to 2 L nasal cannula. He is tolerating this well. No tachypnea or acute respiratory distress noted. Oxygen saturations 94 to 95%. He is hemodynamically stable. He converted back to normal sinus rhythm after initiation of amiodarone today. This will be continued. Will attempt to transition to p.o. amiodarone tomorrow. IVC filter was placed yesterday. Venous Dopplers were checked at our facility today which did not reveal any evidence of DVT. This is a conflicting report from [facility] which revealed DVT to right popliteal vein. Superficial thrombophlebitis right greater saphenous vein. I have reviewed Dr. Maldonado's note. At this point, we will continue to hold off on thrombolytics as well as anticoagulants given his history of factor VII. As long as patient remains asymptomatic, we will hold off on anticoagulation. We will continue to make further recommendations as his clinical course evolves. I will further discuss with Dr. Sosa and await his additional recommendations. IMPRESSION AND PLAN 1. PULMONARY EMBOLISM - Clinically stable today. Weaned down to 2 L of oxygen via nasal cannula. No distress. IVC filter was placed yesterday. I have reviewed Dr. Maldonado's note. At this point, we will continue to hold off on thrombolytics as well as anticoagulants given his history of factor VII. As long as patient remains asymptomatic, we will hold off on anticoagulation. We will continue to make further recommendations as his clinical course evolves. 2. ATRIAL FIBRILLATION WITH RAPID VENTRICULAR RESPONSE - History of paroxysmal atrial fibrillation. Chemically converted with IV amiodarone. This will be continued. Will attempt to transition to p.o. amiodarone tomorrow. Continue metoprolol digoxin. Will monitor renal function closely with daily BMP. Dr. Jimenez has been consulted. Appreciate his assistance. Historically, patient has not been chronically anticoagulated due to his history of factor VII. Low-dose aspirin was resumed. Dr. Maldonado has been consulted and does not feel like patient is a candidate for anticoagulation. This point, we will hold off with anticoagulation. Continue aspirin. I will further discuss with Dr. Sosa and await his additional recommendations. 3. ACUTE DVT - IVC filter placed yesterday. Venous Dopplers at [facility] revealed DVT to right popliteal vein. Superficial thrombophlebitis right greater saphenous vein. Venous Doppler at our facility was performed which revealed conflicting report. No evidence of DVT was found at our facility. At this point, we will continue to hold off on thrombolytics as well as anticoagulants given his history of factor VII. We will continue to make further recommendations as his clinical course evolves. 4. HISTORY OF FACTOR VII DEFICIENCY - Hematology consulted. Holding thrombolytics/anticoagulation per hematology's recommendations. Appreciate his assistance. 5. HISTORY OF NONISCHEMIC CARDIOMYOPATHY- Echo yesterday revealed EF 25-30%. Without overt heart failure. LHC done 1 to week ago revealed normal coronaries per his report. Records have been requested. Continue beta-blockade, CAROL inhibitor, digoxin, and diuretics. Patient will need a repeat echocardiogram in approximately 3 months to reassess his EF. Daily weights and strict I's and O's. 6. GERD - Continue PPI. 7. HYPOTHYROIDISM - Continue Synthroid. 8. HYPERTENSION - Under well control. Continue current plan of care. Will monitor blood pressure and adjust medications accordingly. Exam (Progress Note) - Constitutional Vitals: Period Temp Pulse Resp BP Sys/Baker Pulse Ox Last 24 Hr 96.6 F-98.7 F 67-157 11-26 110-161/67-144 90-100 Exam: General: Appears well with no apparent distress. Pleasant and cooperative. Appears comfortable. Obese. HEENT: PERRL, normocephalic, atraumatic. Mucous membranes moist. No jaundice noted. Conjunctiva moist and clear, sclerae anicteric Neck: No JVD/HJR, no thyromegaly or lymphadenopathy noted. No carotid bruit appreciated Cardiac: Regular rate and rhythm. Systolic murmur. Lungs: Clear to auscultation. Oxygen via nasal cannula. Abdomen: Obese. Soft, bowel sounds normoactive. Nontender and nondistended. No abdominal bruit or thrill noted. No masses noted. Extremities: No clubbing, cyanosis noted. No edema noted. Upper extremity pulses 2+. Lower extremity pulses 2+. Capillary refill less than 3 seconds. Skin: No unusual lesions or rashes. No skin breakdown appreciated. Neuro: Awake, alert and oriented 3. Moves all extremities well without hemiparesis or paralysis. No essential tremor is appreciated. Result/EKG - Labs CBC & BMP: 10/29/16 11:55 10/29/16 11:55 Labs: Laboratory Results - last 24 hr 10/29/16 10/29/16 10/29/16 11:55 11:55 11:55 WBC 6.8 RBC 5.58 H Hgb 15.9 Hct 47.3 MCV 84.8 L MCH 29 MCHC 33.6 RDW 13.8 Plt Count 233 MPV 9.7 Neut % (Auto) 68.4 Lymph % (Auto) 18.6 L [place] % (Auto) 12.2 Eos % (Auto) 0.1 Baso % (Auto) 0.4 Neut # (Auto) 4.6 Lymph # (Auto) 1.3 L [place] # (Auto) 0.8 Eos # (Auto) 0.0 Baso # (Auto) 0.0 Immature Gran % 0.3 Nucleated RBC % 0.0 Immature Gran # 0.02 Nucleated RBCs # 0.00 Immature Plt Fraction 0.0 INR PT Patient/Control Mix D-Dimer, Quantitative Circ Anticoag PTT ABG pH ABG pCO2 ABG pO2 ABG HCO3 ABG Total CO2 ABG O2 Saturation ABG Base Excess FiO2 Sodium 141 Potassium 4.2 Chloride 105 Carbon Dioxide 28 Anion Gap 12.2 BUN 17 Creatinine 1.60 H GFR Calculation 67 BUN/Creatinine Ratio 10.00 Glucose 107 H Calculated Osmolality 282.3 Calcium 9.2 Total Bilirubin 1.10 H AST 25 ALT 28 Alkaline Phosphatase 114 Total Creatine Kinase CK-MB (CK-2) Troponin I B-Natriuretic Peptide Total Protein 8.2 Albumin 3.4 Globulin 4.8 H Albumin/Globulin Ratio 0.7 L Triglycerides Cholesterol LDL Cholesterol VLDL Cholesterol HDL Cholesterol Heart Disease Risk Ratio TSH 3rd Generation 0.382 10/29/16 10/29/16 10/29/16 11:55 11:55 12:43 WBC RBC Hgb Hct MCV MCH MCHC RDW Plt Count MPV Neut % (Auto) Lymph % (Auto) [place] % (Auto) Eos % (Auto) Baso % (Auto) Neut # (Auto) Lymph # (Auto) [place] # (Auto) Eos # (Auto) Baso # (Auto) Immature Gran % Nucleated RBC % Immature Gran # Nucleated RBCs # Immature Plt Fraction INR PT Patient/Control Mix D-Dimer, Quantitative 24.3 Circ Anticoag PTT ABG pH ABG pCO2 ABG pO2 ABG HCO3 ABG Total CO2 ABG O2 Saturation ABG Base Excess FiO2 Sodium Potassium Chloride Carbon Dioxide Anion Gap BUN Creatinine GFR Calculation BUN/Creatinine Ratio Glucose Calculated Osmolality Calcium Total Bilirubin AST ALT Alkaline Phosphatase Total Creatine Kinase 59 CK-MB (CK-2) 1.2 Troponin I 0.137 H B-Natriuretic Peptide 398 H Total Protein Albumin Globulin Albumin/Globulin Ratio Triglycerides Cholesterol LDL Cholesterol VLDL Cholesterol HDL Cholesterol Heart Disease Risk Ratio TSH 3rd Generation 10/29/16 10/29/16 10/29/16 12:43 17:41 19:10 WBC RBC Hgb Hct MCV MCH MCHC RDW Plt Count MPV Neut % (Auto) Lymph % (Auto) [place] % (Auto) Eos % (Auto) Baso % (Auto) Neut # (Auto) Lymph # (Auto) [place] # (Auto) Eos # (Auto) Baso # (Auto) Immature Gran % Nucleated RBC % Immature Gran # Nucleated RBCs # Immature Plt Fraction INR 3.8 PT Patient/Control Mix 39.9 D-Dimer, Quantitative Circ Anticoag PTT 29.4 ABG pH 7.428 ABG pCO2 38.3 ABG pO2 63.8 L ABG HCO3 25.3 ABG Total CO2 21.3 L ABG O2 Saturation 92.0 L ABG Base Excess 1.2 FiO2 50.00 Sodium Potassium Chloride Carbon Dioxide Anion Gap BUN Creatinine GFR Calculation BUN/Creatinine Ratio Glucose Calculated Osmolality Calcium Total Bilirubin AST ALT Alkaline Phosphatase Total Creatine Kinase 61 CK-MB (CK-2) 1.7 Troponin I 0.166 H D B-Natriuretic Peptide Total Protein Albumin Globulin Albumin/Globulin Ratio Triglycerides Cholesterol LDL Cholesterol VLDL Cholesterol HDL Cholesterol Heart Disease Risk Ratio TSH 3rd Generation 10/30/16 10/30/16 05:33 05:33 WBC RBC Hgb Hct MCV MCH MCHC RDW Plt Count MPV Neut % (Auto) Lymph % (Auto) [place] % (Auto) Eos % (Auto) Baso % (Auto) Neut # (Auto) Lymph # (Auto) [place] # (Auto) Eos # (Auto) Baso # (Auto) Immature Gran % Nucleated RBC % Immature Gran # Nucleated RBCs # Immature Plt Fraction INR PT Patient/Control Mix D-Dimer, Quantitative Circ Anticoag PTT ABG pH ABG pCO2 ABG pO2 ABG HCO3 ABG Total CO2 ABG O2 Saturation ABG Base Excess FiO2 Sodium Potassium Chloride Carbon Dioxide Anion Gap BUN Creatinine GFR Calculation BUN/Creatinine Ratio Glucose Calculated Osmolality Calcium Total Bilirubin AST ALT Alkaline Phosphatase Total Creatine Kinase 71 CK-MB (CK-2) 1.6 Troponin I 0.172 H B-Natriuretic Peptide Total Protein Albumin Globulin Albumin/Globulin Ratio Triglycerides 108 Cholesterol 153 LDL Cholesterol 84.0 VLDL Cholesterol 21.6 HDL Cholesterol 53 Heart Disease Risk Ratio 2.89 TSH 3rd Generation Quality Measures - Stroke Symptom Onset Unknown: No
[2016-10-30] MEDS ORDERED: DIGOXIN 0.25 MG TABLET PO SCH (13:00)
[2016-10-30] MEDS: DIGOXIN 0.25 MG TABLET PO SCH (13:01)
[2016-10-30] MEDS: AMIODARONE 200 MG TABLET PO SCH ×2 (14:53→20:32)
[2016-10-31 05:53] LABS: Basophils # 0.1 10*3/uL (0.0-0.2); Basophils % 0.8 % (0.0-0.8); Eosinophils # 0.1 10*3/uL (0.0-0.87); Eosinophils % 1.8 % (0.00-10.9); Hematocrit 44.3 VOL% (42.0-52.0); Hemoglobin 14.9 GM/DL (14.0-18.0); Immature Granulocytes % 0.4 %; Immature Granulocytes Absolute 0.03 #; Lymphocytes % 27.5 % (21.2-54.2); Mean Corpuscular HGB Conc 33.6 GM/DL (32-36); Mean Corpuscular Hemoglobin 29 PG (27-34); Mean Corpuscular Volume 84.7 FL (87-102); Mean Platelet Volume 10.2 FL (9.6-12.0); Monocytes # 0.9 10*3/uL (0.11-0.8); Monocytes % 13.1 % (1.7-12.7); Neutrophils % 56.4 % (38.7-73.9); Platelet Count 208 T/CUMM (130-400); Red Blood Count 5.23 MC/CUMM (3.8-5.5); Red Cell Distribution Width 13.7 % (9.3-17.3); White Blood Count 7.1 T/CUMM (4-12)
[2016-10-31 05:57] LABS: Calcium 8.7 MG/DL (8.5-10.1); Magnesium 1.7 MG/DL (1.8-2.4); Osmolality,Calculated 275.7 MOS/KG (273-304); Potassium 3.7 MMOL/L (3.5-5.1)
[2016-10-31] MEDS: MAGNESIUM SULF RIDER 2 GM in PREMIX 1 EACH IV PRN (06:19)
[2016-10-31] MEDS: ASPIRIN EC 81 MG TABLET PO SCH (08:21)
[2016-10-31] MEDS: AMIODARONE 200 MG TABLET PO SCH ×2 (08:21→21:00)
[2016-10-31] MEDS: LISINOPRIL 2.5 MG TABLET PO SCH (08:21)
[2016-10-31] MEDS: METOPROLOL TARTRATE 25 MG TABLET PO SCH (08:22)
[2016-10-31] MEDS: PANTOPRAZOLE 40 MG TABLET PO SCH (08:22)
[2016-10-31] MEDS: CARVEDILOL 6.25 MG TABLET PO SCH ×2 (08:23→21:00)
[2016-10-31] MEDS: LEVOTHYROXINE 100 MCG TABLET PO SCH (08:23)
[2016-10-31] MEDS: FUROSEMIDE 40 MG TABLET PO SCH (08:23)
--- NOTE | 2016-10-31 09:48 | Hematology Progress Note ---
Assessment and Plan (1) Dyspnea Status: Acute Current Visit: Yes (2) Atrial fibrillation with rapid ventricular response Status: Resolved Current Visit: Yes (3) Venous thromboembolism (VTE) Problem details: Extensive PE bilaterally, h/o bleeding d/o and risk of thrombolysis is high Status: Acute Current Visit: Yes (4) Factor VII deficiency Status: Acute Current Visit: Yes Hematology Subjective PN Interval history: Mr. Walker is doing well this morning. He has no complaints. He denies any shortness of breath. There is nothing bad from hematology standpoint at this time. He now has an IVC filter in place and we have made the decision to not anticoagulate him given his factor VII deficiency. He will need follow-up arranged at [facility] to see the web feeder there since [place] Medicaid will not pay for outpatient follow-up here in [place]. The number to that clinic is . Please have the nurse or secretary specialist call that number to make an appointment. If he stays overnight, it would be sawyer to go ahead and do that today since they would not be open on the weekend. I will sign off for now. If there is any questions please feel free to call me back. Exam - Constitutional Vitals: Period Temp Pulse Resp BP Sys/Baker Pulse Ox Last 24 Hr 97.4 F-98.6 F 66-77 8-21 109-143/64-89 92-98 General appearance: normal weight, no acute distress - Head Head Exam: Present: normocephalic, atraumatic - ENT ENT exam: Present: normal exam, normal oropharynx - Neck Neck exam: Absent: lymphadenopathy, thyromegaly - Respiratory Respiratory exam: Present: CTAB. Absent: wheezes - Cardiovascular Cardiovascular exam: Present: RRR. Absent: JVD Results - Labs CBC & BMP: 10/31/16 05:11 10/31/16 05:11 Lab Results: I have reviewed the past 24 hour labs Quality Measures - Stroke Symptom Onset Unknown: No
--- NOTE | 2016-10-31 11:25 | Cardiology Progress Note ---
Assessment and Plan (1) Pulmonary embolism Status: Acute Assessment and plan: SEE PLAN OF CARE LISTED BELOW. Current Visit: Yes (2) Atrial fibrillation with rapid ventricular response Status: Resolved Assessment and plan: SEE PLAN OF CARE LISTED BELOW. Current Visit: Yes (3) Paroxysmal a-fib Status: Chronic Assessment and plan: SEE PLAN OF CARE LISTED BELOW. Current Visit: Yes (4) Acute DVT (deep venous thrombosis) Status: Acute Assessment and plan: SEE PLAN OF CARE LISTED BELOW. 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 Current Visit: Yes (6) Nonischemic cardiomyopathy Status: Chronic Assessment and plan: SEE PLAN OF CARE LISTED BELOW. Current Visit: Yes (7) Hypertension Status: Chronic Assessment and plan: SEE PLAN OF CARE LISTED BELOW. Current Visit: Yes (8) Hypothyroidism Status: Acute Assessment and plan: SEE PLAN OF CARE LISTED BELOW. Current Visit: Yes (9) GERD (gastroesophageal reflux disease) Status: Chronic Assessment and plan: SEE PLAN OF CARE LISTED BELOW. Current Visit: Yes Cardiology - PN: Subj Interval history: POPULATION HEALTH COACH: [place] [facility] SUMMARY Mr. Franklin is a 46 year old male without known history of coronary artery disease, routinely followed by [place] [facility]. Cardiac risk factors include: Obesity, hypertension, hypercholesterolemia and sedentary lifestyle. Past medical history includes: Atrial fibrillation (has not been chronically anticoagulated due to bleeding disorder), factor VII deficiency, hypothyroidism , obstructive sleep apnea, GERD and systolic heart failure. Patient reports that he just underwent heart catheterization a few weeks ago at [facility] that was negative. I have requested patient's records from [place] [facility]. He was transferred from [facility] yesterday for suspected pulmonary embolism. He underwent CT angiogram, PE protocol yesterday which revealed large pulmonary thromboembolism, nearly completely occluding the right main pulmonary artery. Moderate amount is present on the left. Venous Dopplers at [facility] revealed DVT to right popliteal vein. Superficial thrombophlebitis right greater saphenous vein. Venous Doppler at our facility was performed which revealed conflicting report. No evidence of DVT was found at our facility. Dr. Maldonado was consulted and is assisting us with management of factor VII deficiency. She was transferred to the telemetry unit yesterday from the CCU. He has tolerated this well. Oxygen has been titrated down to 2 L nasal cannula. 2016 Patient seen and examined on the telemetry unit. He is doing well this morning without complaints. He reports that his breathing continues to improve. Denies chest pain, heaviness or tightness. He continues to be on oxygen 2 L via nasal cannula. Oxygen saturations ranging in the mid 90s. I have instructed him and nursing staff to titrate down oxygen to see how patient does. He reports that he has been out walking around some and has not experienced any significant dyspnea on exertion. Hematology feels that he is stable from their standpoint. They have signed off of his case. He will follow -up with elementary ell teacher in [place]. Central line discontinued today. Patient tolerated well. Pressure was held and hemostasis achieved. Labs reviewed. Creatinine improved today 1.4. Continue to monitor. Patient's amiodarone was converted to p.o. today. He continues to go in and out between atrial fibrillation and sinus rhythm. Episodes of atrial fibrillation have been rate controlled. Patient is asymptomatic. Continue to optimize rate control with digoxin and carvedilol. INR 3.8 yesterday. Patient is hemodynamically stable. Labs been reviewed. If he continues to improve, he may be eligible for discharge in the next 24 hours. I will further discuss with Dr. Sosa and await his additional recommendations. IMPRESSION AND PLAN 1. PULMONARY EMBOLISM - Clinically stable today. IVC filter in place. No distress. Today, we will attempt to wean patient's oxygen down as he tolerates. We will continue to hold off on thrombolytics as well as anticoagulants given his history of factor VII. As long as patient remains asymptomatic, we will hold off on anticoagulation. If he continues to improve, he may be eligible for discharge in the next 24 hours. 2. ATRIAL FIBRILLATION WITH RAPID VENTRICULAR RESPONSE - History of paroxysmal atrial fibrillation. Patient continues to go in and out between atrial fibrillation and sinus rhythm. Episodes of atrial fibrillation have been rate controlled. Patient is asymptomatic. Continue carvedilol, digoxin. Will monitor renal function closely with daily BMP. Dr. Jimenez has been consulted. Appreciate his assistance. Historically, patient has not been chronically anticoagulated due to his history of factor VII. Continue low-dose aspirin. Hematology does not feel like patient is a candidate for anticoagulation. Appreciate their assistance. 3. ACUTE DVT - IVC filter placed. Repeat venous Doppler at our facility revealed no evidence of DVT. 4. HISTORY OF FACTOR VII DEFICIENCY - Holding thrombolytics/anticoagulation per hematology's recommendations. Will follow up with hematology in [place] as an outpatient. 5. HISTORY OF NONISCHEMIC CARDIOMYOPATHY- Echo revealed EF 25-30%. Without overt heart failure. LHC done 1 to week ago revealed normal coronaries per his report. Records have been requested. Continue beta-blockade, CAROL inhibitor, digoxin, and diuretics. Patient will need a repeat echocardiogram in approximately 3 months to reassess his EF. Daily weights and strict I's and O' s. 6. GERD - Continue PPI. 7. HYPOTHYROIDISM - Continue Synthroid. 8. HYPERTENSION - Under well control. Continue current plan of care. Will monitor blood pressure and adjust medications accordingly. Exam (Progress Note) - Constitutional Vitals: Period Temp Pulse Resp BP Sys/Baker Pulse Ox Last 24 Hr 97.4 F-98.6 F 66-77 8-20 109-143/64-89 93-98 Exam: General: Appears well with no apparent distress. Pleasant and cooperative. Appears comfortable. Obese. HEENT: PERRL, normocephalic, atraumatic. Mucous membranes moist. No jaundice noted. Conjunctiva moist and clear, sclerae anicteric Neck: No JVD/HJR, no thyromegaly or lymphadenopathy noted. No carotid bruit appreciated Cardiac: Irregular rhythm, rate controlled. cardiac rub. Lungs: Clear to auscultation. Oxygen via nasal cannula. Abdomen: Obese. Soft, bowel sounds normoactive. Nontender and nondistended. No abdominal bruit or thrill noted. No masses noted. Extremities: No clubbing, cyanosis noted. No edema noted. Upper extremity pulses 2+. Lower extremity pulses 2+. Capillary refill less than 3 seconds. Skin: No unusual lesions or rashes. No skin breakdown appreciated. Neuro: Awake, alert and oriented 3. Moves all extremities well without hemiparesis or paralysis. No essential tremor is appreciated. Result/EKG - Labs CBC & BMP: 10/31/16 05:11 10/31/16 05:11 Lab Results: I have reviewed the past 24 hour labs Labs: Laboratory Results - last 24 hr 10/31/16 10/31/16 05:11 05:11 WBC 7.1 RBC 5.23 Hgb 14.9 Hct 44.3 MCV 84.7 L MCH 29 MCHC 33.6 RDW 13.7 Plt Count 208 MPV 10.2 Neut % (Auto) 56.4 Lymph % (Auto) 27.5 [place] % (Auto) 13.1 H Eos % (Auto) 1.8 Baso % (Auto) 0.8 Neut # (Auto) 4.0 Lymph # (Auto) 2.0 [place] # (Auto) 0.9 H Eos # (Auto) 0.1 Baso # (Auto) 0.1 Immature Gran % 0.4 Nucleated RBC % 0.0 Immature Gran # 0.03 Nucleated RBCs # 0.00 Immature Plt Fraction 0.0 Sodium 138 Potassium 3.7 Chloride 104 Carbon Dioxide 30 Anion Gap 7.7 BUN 16 Creatinine 1.40 H GFR Calculation 78 BUN/Creatinine Ratio 11.00 Glucose 97 Calculated Osmolality 275.7 Calcium 8.7 Magnesium 1.7 L Quality Measures - Stroke Symptom Onset Unknown: No Specialty Discharge - Follow Up or Referrals Follow up with: Eduardo Cheng [REFERRING DOCTOR/PRACTITIONER] - 11/10/16 9:00 am (bring all meds in their bottles, insurance cards and 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 records were faxed to [facility])
[2016-10-31 11:55] LABS: Coag Factor VIII Activity Assa 139 % (55 - 200); von Willebrand Factor Activity 139 % (55 - 200)
--- NOTE | 2016-10-31 11:56 | Cardiology Progress Note ---
Assessment and Plan (1) Paroxysmal a-fib Status: Chronic Current Visit: Yes (2) Acute DVT (deep venous thrombosis) Status: Acute Current Visit: Yes (3) History of factor VIII deficiency Status: Chronic Current Visit: Yes (4) Venous thromboembolism (VTE) Problem details: Extensive PE bilaterally, h/o bleeding d/o and risk of thrombolysis is high Status: Acute Current Visit: Yes (5) Pulmonary embolism Status: Acute Current Visit: Yes (6) Nonischemic cardiomyopathy Status: Chronic Current Visit: Yes Cardiology - PN: Subj Interval history: Mr. Walker looks amazingly good he is not tachypneic he is not dyspneic he is lying flat in the bed. His heart rate is 66 remains in sinus rhythm his vital signs are stable. He has no complaint. Exam (Progress Note) - Constitutional Vitals: Period Temp Pulse Resp BP Sys/Baker Pulse Ox Last 24 Hr 97.4 F-98.6 F 66-77 8-20 109-143/64-91 93-98 General appearance: normal weight - Head Head exam: Present: normal inspection - Eye Eye exam: Present: EOMI Pupils: Present: SUSI - Respiratory Respiratory exam: Present: clear to auscultation bilaterally - Cardiovascular Cardiovascular exam: Present: regular rate and rhythm (Bradycardia with a widely split second heart sound. He has a prominent P2) - GI/Abdominal GI/Abdominal exam: Present: normal bowel sounds - Extremities Exam Extremities exam: Present: normal inspection - Back Exam Back exam: Present: normal inspection - Psychiatric Psychiatric exam: Present: normal affect, normal mood - Skin Skin exam: Present: normal color, warm, dry Result/EKG - Labs CBC & BMP: 10/31/16 05:11 10/31/16 05:11 Labs: Laboratory Results - last 24 hr 10/31/16 10/31/16 05:11 05:11 WBC 7.1 RBC 5.23 Hgb 14.9 Hct 44.3 MCV 84.7 L MCH 29 MCHC 33.6 RDW 13.7 Plt Count 208 MPV 10.2 Neut % (Auto) 56.4 Lymph % (Auto) 27.5 [place] % (Auto) 13.1 H Eos % (Auto) 1.8 Baso % (Auto) 0.8 Neut # (Auto) 4.0 Lymph # (Auto) 2.0 [place] # (Auto) 0.9 H Eos # (Auto) 0.1 Baso # (Auto) 0.1 Immature Gran % 0.4 Nucleated RBC % 0.0 Immature Gran # 0.03 Nucleated RBCs # 0.00 Immature Plt Fraction 0.0 Sodium 138 Potassium 3.7 Chloride 104 Carbon Dioxide 30 Anion Gap 7.7 BUN 16 Creatinine 1.40 H GFR Calculation 78 BUN/Creatinine Ratio 11.00 Glucose 97 Calculated Osmolality 275.7 Calcium 8.7 Magnesium 1.7 L Quality Measures - Stroke Symptom Onset Unknown: No Specialty Discharge - Follow Up or Referrals Follow up with: Eduardo Cheng [REFERRING DOCTOR/PRACTITIONER] - 11/10/16 9:00 am (bring all meds in their bottles, insurance cards and 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 records were fax[facility] to [facility])
[2016-10-31] MEDS: DIGOXIN 0.25 MG TABLET PO SCH (13:02)
--- NOTE | 2016-10-31 13:17 | Electrophysiology Progress Not ---
Benjamin Rosenberg Vanessa, RN, am scribing for, and in the presence of, Chu Jimenez MD 13 :17. Assessment and Plan - Time spent with patient Time spent with patient: Greater than 30 minutes (1) Atrial fibrillation with rapid ventricular response Status: Resolved Assessment and plan: 46-year-old BM, with factor VII deficiency, extensive DVT, massive PE, and he is not a candidate for thrombolysis or heparinization. Has had atrial fibrillation and atrial flutter with RVR. Now in sinus rhythm. Echo: LVEF 25-30%, , dilated, hypokinetic RV, with Fong sign CTA: massed PE, subtotally occluded right PA, also, clot burden in left PA. 10/29: IVC filter placement A/P: 1. AF/AFL -Risk for recurrence is high. Unfortunately, severe cardiomyopathy will likely leave clot burden and pulmonary pressure high. -Continue amiodarone 400 mg by mouth twice daily -Continue digoxin and monitor renal function carefully -Continue ASA -He is at risk for worsening arrhythmia burden, due to ongoing RA/RV strain. Continue to monitor on telemetry. So far, A. fib, flutter, no significant conversion pauses, sinus arrhythmia Current Visit: Yes (2) Acute DVT (deep venous thrombosis) Status: Acute Assessment and plan: SEE PLAN OF CARE LISTED ABOVE. Current Visit: Yes (3) Dyspnea Status: Acute Assessment and plan: SEE PLAN OF CARE LISTED ABOVE. Current Visit: Yes (4) Venous thromboembolism (VTE) Problem details: Extensive PE bilaterally, h/o bleeding d/o and risk of thrombolysis is high Status: Acute Assessment and plan: SEE PLAN OF CARE LISTED ABOVE. 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 Current Visit: Yes (6) Hypertension Status: Chronic Assessment and plan: SEE PLAN OF CARE LISTED ABOVE. Current Visit: Yes Electrophysiology Subjective Interval history: Mr. Franklin is not having any dyspnea this morning and is not requiring supplemental oxygen. No chest pain. Has some self sustained 3-1 atrial flutter earlier this morning with spontaneous conversion to sinus rhythm and is also having some bradycardia, HR 50. SBP 115-130 mmHg. Labs reviewed. Hypomagnesemia, 1.7, but overall stable. Exam - Constitutional Vitals: Period Temp Pulse Resp BP Sys/Baker Pulse Ox Last 24 Hr 97.4 F-98.6 F 66-77 8-20 109-143/64-89 93-98 Exam: General appearance: no acute distress, over weight - Head Head exam: Present: normal inspection. Absent: contusion, hematoma - Eye Eye exam: Absent: periorbital swelling, laceration to eyelids Pupils: Absent: normal accommodation - ENT ENT exam: Present: normal external ear exam - Neck Neck exam: Absent: tenderness, thyromegaly - Respiratory Respiratory exam: Present: clear to auscultation bilaterally. Absent: decreased breath sounds - Cardiovascular Cardiovascular exam: Present: regular rate and rhythm, systolic murmur. Absent : JVD - GI/Abdominal GI/Abdominal exam: Present: normal bowel sounds. Absent: distended - Extremities Exam Extremities exam: Present: normal inspection, normal capillary refill. Absent: edema - Back Exam Back exam: Present: normal inspection - Neurological Exam Neurological exam: Present: alert, oriented X3. Calm, cooperative - Psychiatric Psychiatric exam: Present: normal affect, normal mood. Not anxious or depressed - Skin Skin exam: Present: normal color, warm, dry. 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 records were faxed to [facility]) IBarbara Attila, MD, personally performed the services described in this documentation, ascribed by Mandy Alexander RN in my presence, and it is both accurate and complete 317 .
[2016-10-31 14:06] LABS: Coag Factor VII Assay, P 3 % (65 - 180)
[2016-11-01 04:56] LABS: Basophils % 0.7 % (0.0-0.8); Eosinophils # 0.1 10*3/uL (0.0-0.87); Eosinophils % 2.3 % (0.00-10.9); Hematocrit 44.6 VOL% (42.0-52.0); Hemoglobin 14.8 GM/DL (14.0-18.0); Immature Granulocytes % 0.2 %; Immature Granulocytes Absolute 0.01 #; Lymphocytes # 2.1 10*3/uL (1.4-4.0); Lymphocytes % 37.5 % (21.2-54.2); Mean Corpuscular HGB Conc 33.2 GM/DL (32-36); Mean Corpuscular Hemoglobin 28 PG (27-34); Mean Platelet Volume 10.4 FL (9.6-12.0); Monocytes # 0.9 10*3/uL (0.11-0.8); Monocytes % 16.6 % (1.7-12.7); Neutrophils # 2.4 10*3/uL (1.4-7.4); Neutrophils % 42.7 % (38.7-73.9); Platelet Count 187 T/CUMM (130-400); Red Blood Count 5.25 MC/CUMM (3.8-5.5); Red Cell Distribution Width 13.6 % (9.3-17.3); White Blood Count 5.7 T/CUMM (4-12)
[2016-11-01 05:19] LABS: PT Patient Result 41.9 SECS
[2016-11-01 05:27] LABS: Calcium 8.7 MG/DL (8.5-10.1); Osmolality,Calculated 281.3 MOS/KG (273-304); Potassium 3.9 MMOL/L (3.5-5.1)
[2016-11-01 06:24] LABS: Eosinophils 2 % (0-10); Giant Platelets Few; Lymphocytes 41 % (20-55); Platelet Estimate Normal; Segmented Neutrophils 46 % (50-85); Total Cells Counted 100
[2016-11-01] MEDS: AMIODARONE 200 MG TABLET PO SCH ×2 (08:34→21:01)
[2016-11-01] MEDS: LISINOPRIL 2.5 MG TABLET PO SCH (08:34)
[2016-11-01] MEDS: ASPIRIN EC 81 MG TABLET PO SCH (08:34)
[2016-11-01] MEDS: CARVEDILOL 6.25 MG TABLET PO SCH ×2 (08:35→21:01)
[2016-11-01] MEDS: PANTOPRAZOLE 40 MG TABLET PO SCH (08:36)
[2016-11-01] MEDS: LEVOTHYROXINE 100 MCG TABLET PO SCH (08:36)
[2016-11-01] MEDS: FUROSEMIDE 40 MG TABLET PO SCH (08:36)
[2016-11-01 10:06] LABS: ABG Base Excess 0.7 MMOL/L (-2.5-2.5); ABG HCO3 24.1 MMOL/L (20-26); ABG Oxygen Saturation 90.3 % (95-100); ABG PCO2 35.2 MM HG (35-48); ABG PH 7.454 (7.35-7.45); ABG PO2 52.7 MM HG (80-95); ABG TCO2 25.2 MMOL/L (23-27)
[2016-11-01] MEDS: DIGOXIN 0.25 MG TABLET PO SCH (12:08)
--- NOTE | 2016-11-01 12:52 | XRay Report ---
History is pulmonary embolus Comparison 10/30/2016 Chest, 2 views The heart is enlarged No congestive failure or confluent infiltrate is seen IVC filter partially visualized Impression: Cardiomegaly without CHF PROCEDURE INTERPRETED AT [facility] DEPARTMENT OF RADIOLOGY Final Report Signed by: Dr. Deloris Ward
--- NOTE | 2016-11-01 17:17 | EKG Report ---
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
[2016-11-02 04:28] LABS: Basophils # 0.1 10*3/uL (0.0-0.2); Basophils % 0.7 % (0.0-0.8); Eosinophils # 0.1 10*3/uL (0.0-0.87); Eosinophils % 1.9 % (0.00-10.9); Hematocrit 39.7 VOL% (42.0-52.0); Hemoglobin 13.5 GM/DL (14.0-18.0); Immature Granulocytes % 0.3 %; Immature Granulocytes Absolute 0.02 #; Lymphocytes # 1.9 10*3/uL (1.4-4.0); Lymphocytes % 28.3 % (21.2-54.2); Mean Corpuscular Hemoglobin 29 PG (27-34); Mean Corpuscular Volume 83.9 FL (87-102); Mean Platelet Volume 10.1 FL (9.6-12.0); Monocytes # 1.1 10*3/uL (0.11-0.8); Monocytes % 15.9 % (1.7-12.7); Neutrophils # 3.5 10*3/uL (1.4-7.4); Neutrophils % 52.9 % (38.7-73.9); Platelet Count 167 T/CUMM (130-400); Red Blood Count 4.73 MC/CUMM (3.8-5.5); Red Cell Distribution Width 13.7 % (9.3-17.3); White Blood Count 6.7 T/CUMM (4-12)
[2016-11-02 05:01] LABS: Calcium 8.8 MG/DL (8.5-10.1); Magnesium 1.8 MG/DL (1.8-2.4); Osmolality,Calculated 280.4 MOS/KG (273-304); Potassium 3.8 MMOL/L (3.5-5.1)
[2016-11-02 05:05] LABS: Eosinophils 2 % (0-10); Lymphocytes 33 % (20-55); Platelet Estimate Normal; Segmented Neutrophils 57 % (50-85); Total Cells Counted 100
--- NOTE | 2016-11-02 07:49 | Cardiology Progress Note ---
Assessment and Plan (1) Paroxysmal a-fib Status: Chronic Current Visit: Yes (2) Acute DVT (deep venous thrombosis) Status: Acute Current Visit: Yes (3) History of factor VIII deficiency Status: Chronic Current Visit: Yes (4) Venous thromboembolism (VTE) Problem details: Extensive PE bilaterally, h/o bleeding d/o and risk of thrombolysis is high Status: Acute Current Visit: Yes (5) Pulmonary embolism Status: Acute Current Visit: Yes (6) Nonischemic cardiomyopathy Status: Chronic Current Visit: Yes (7) LV (left ventricular) mural thrombus Status: Chronic Assessment and plan: This was previously diagnosed at [place] and on our TTE here there was a very small apical defect that was felt to represent thrombus. Current Visit: Yes Cardiology - PN: Subj Interval history: Mr. Walker is a very pleasant 46-year-old gentleman who resides in [place]. He is found to have factor VII deficiency recently with elevated INR and newly diagnosed cardiomyopathy with A. fib and RVR at [place]. The patient was given fresh frozen plasma for correction of his coagulopathy and underwent left heart catheterization approximately 1-2 weeks ago. The patient was treated for his A. fib with RVR and was found to have a nonischemic cardiomyopathy was also found to have an LV thrombus at that time. The patient represented last week to [place] with A. fib with RVR rates exceeding 160 bpm. He was transferred here for the purposes of having an EP evaluation. He was found to have a 100% occluded right pulmonary artery and a approximately 70% occluded left pulmonary artery with thrombus and massive or submassive pulmonary embolism. Amazingly his blood pressure was was perfect, his heart rate was easily controlled and he converted to sinus rhythm with saturations in the mid 90s on Ventimask at approximately 40%. Hematology was consulted concerning options and recommendations for anticoagulation and potential candidacy for EKOS procedure and thrombolysis with a submassive pulmonary embolism and DVTs. He was the impression of hematology that it was likely too risky to proceed with thrombolyzes even at low dose and EKOS. We had a lengthy discussion with the patient and his fiance. Ultimately decision was made for him to undergo an IVC interruption filter placement and interventional radiology place this filter shortly after admission. His INR remains in excess of 4 we have reevaluated his hematologic status and he has 3% functioning of factor VII. His O2 has been weaned and yesterday he had a blood gas that showed a PO2 in the 50s on room air. I have continued his O2 have asked case management to assist with arranging home O2. He is remained in sinus rhythm. Dr. Jimenez saw the patient evaluated and recommended antiarrhythmic therapy and he is being loaded with oral amiodarone. He is hemodynamically stable in sinus rhythm and doing well. I discussed with the patient and told him to anticipate discharge in the next 24-48 hours with home O2. Dr. Maldonado recommended follow-up with hematology oncology either in [place] or [place] due to the patient's healthcare coverage being allocated and is not taken at the [facility]. Exam (Progress Note) - Constitutional Vitals: Period Temp Pulse Resp BP Sys/Baker Pulse Ox Last 24 Hr 97.6 F-98.5 F 55-83 18-18 112-126/66-84 96-99 General appearance: over weight - Head Head exam: Present: normal inspection - Eye Eye exam: Present: EOMI Pupils: Present: SUSI - Respiratory Respiratory exam: Present: clear to auscultation bilaterally (Amazingly normal exam) - Cardiovascular Cardiovascular exam: Present: regular rate and rhythm (His widely split A2 P2 have narrowed) - GI/Abdominal GI/Abdominal exam: Present: normal bowel sounds - Back Exam Back exam: Present: normal inspection - Neurological Exam Neurological exam: Present: alert, oriented X3 - Psychiatric Psychiatric exam: Present: normal mood, flat affect Result/EKG - Labs CBC & BMP: 11/02/16 04:04 11/02/16 04:04 Labs: Laboratory Results - last 24 hr 11/01/16 11/02/16 11/02/16 09:54 04:04 04:04 WBC 6.7 RBC 4.73 Hgb 13.5 L Hct 39.7 L MCV 83.9 L MCH 29 MCHC 34.0 RDW 13.7 Plt Count 167 MPV 10.1 Neut % (Auto) 52.9 Lymph % (Auto) 28.3 [place] % (Auto) 15.9 H Eos % (Auto) 1.9 Baso % (Auto) 0.7 Neut # (Auto) 3.5 Lymph # (Auto) 1.9 [place] # (Auto) 1.1 H Eos # (Auto) 0.1 Baso # (Auto) 0.1 Total Counted 100 Immature Gran % 0.3 Nucleated RBC % 0.0 Immature Gran # 0.02 Segmented Neutrophils 57 Lymphocytes 33 Monocytes 7 Eosinophils 2 Basophils 1.0 H Nucleated RBCs # 0.00 Platelet Estimate Normal Immature Plt Fraction 0.0 Pappenheimer 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 [employer]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 records were faxed to [facility])
[2016-11-02] MEDS: LISINOPRIL 2.5 MG TABLET PO SCH (09:14)
[2016-11-02] MEDS: CARVEDILOL 6.25 MG TABLET PO SCH ×2 (09:15→21:36)
[2016-11-02] MEDS: LEVOTHYROXINE 100 MCG TABLET PO SCH (09:15)
[2016-11-02] MEDS: FUROSEMIDE 40 MG TABLET PO SCH (09:15)
[2016-11-02] MEDS: ASPIRIN EC 81 MG TABLET PO SCH (09:15)
[2016-11-02] MEDS: AMIODARONE 200 MG TABLET PO SCH ×2 (09:15→21:36)
[2016-11-02] MEDS: PANTOPRAZOLE 40 MG TABLET PO SCH (09:15)
[2016-11-02] MEDS: DIGOXIN 0.25 MG TABLET PO SCH (12:56)
[2016-11-03 05:13] LABS: Basophils % 0.5 % (0.0-0.8); Eosinophils % 0.5 % (0.00-10.9); Hematocrit 41.1 VOL% (42.0-52.0); Hemoglobin 13.9 GM/DL (14.0-18.0); Immature Granulocytes % 0.2 %; Immature Granulocytes Absolute 0.02 #; Lymphocytes # 1.2 10*3/uL (1.4-4.0); Lymphocytes % 14.5 % (21.2-54.2); Mean Corpuscular HGB Conc 33.8 GM/DL (32-36); Mean Corpuscular Hemoglobin 29 PG (27-34); Mean Corpuscular Volume 84.2 FL (87-102); Mean Platelet Volume 10.5 FL (9.6-12.0); Monocytes # 0.9 10*3/uL (0.11-0.8); Monocytes % 10.2 % (1.7-12.7); Neutrophils # 6.3 10*3/uL (1.4-7.4); Neutrophils % 74.1 % (38.7-73.9); Platelet Count 187 T/CUMM (130-400); Red Blood Count 4.88 MC/CUMM (3.8-5.5); Red Cell Distribution Width 13.8 % (9.3-17.3); White Blood Count 8.6 T/CUMM (4-12)
[2016-11-03 05:46] LABS: Calcium 9.1 MG/DL (8.5-10.1); Magnesium 1.7 MG/DL (1.8-2.4); Osmolality,Calculated 274.8 MOS/KG (273-304)
--- NOTE | 2016-11-03 07:47 | Electrophysiology Progress Not ---
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 Has had atrial fibrillation and atrial flutter with RVR. Now in sinus rhythm. Echo: LVEF 25-30%, , dilated, hypokinetic RV, with Fong sign CTA: massed PE, subtotally occluded right PA, also, clot burden in left PA. 10/29: IVC filter placement A/P: 1. AF/AFL -Fewer recurrences of arrhythmia. Decrease amiodarone to 200 mg once a day. Increase Coreg to 12.5 mg twice daily. The blood pressure was stable. -Check EKG, assess QTC -Still not a candidate for anticoagulation, due to high risk coagulation factor deficiency -Continue digoxin, renally adjusted dose. -Continue aspirin. -He had mild episodes of sinus bradycardia and frequent PVCs. I suspect this is due to ongoing RV strain. He is at risk of developing symptomatic tachycardia or bradyarrhythmia, rhythm control options are quite limited at this time, has a recently implanted IVC filter and DVT. Current Visit: Yes (2) Acute DVT (deep venous thrombosis) Status: Acute Assessment and plan: SEE PLAN OF CARE LISTED ABOVE. Current Visit: Yes (3) Dyspnea Status: Acute Assessment and plan: SEE PLAN OF CARE LISTED ABOVE. Current Visit: Yes (4) Venous thromboembolism (VTE) Problem details: Extensive PE bilaterally, h/o bleeding d/o and risk of thrombolysis is high Status: Acute Assessment and plan: SEE PLAN OF CARE LISTED ABOVE. 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 Current Visit: Yes (6) Hypertension Status: Chronic Assessment and plan: SEE PLAN OF CARE LISTED ABOVE. Current Visit: Yes Electrophysiology Subjective Interval history: He is feeling better. No SOB with light activity. Sinus rhythm, with frequent, pleomorphic PVCs. Short runs of atrial flutter, RVR. Occasional, mild sinus bradycardia. Still, with prominent repol changes. Exam - Constitutional Vitals: Period Temp Pulse Resp BP Sys/Baker Pulse Ox Last 24 Hr 97.2 F-98.3 F 59-65 18-18 114-132/68-82 96-99 General appearance: no acute distress, morbidly obese - Head Head exam: Present: normal inspection. Absent: abrasion, hematoma - Eye Eye exam: Absent: periorbital swelling, laceration to eyelids Pupils: Absent: dilated, irregular - ENT ENT exam: Present: normal external ear exam - Neck Neck exam: Present: normal inspection - Respiratory Respiratory exam: Present: clear to auscultation bilaterally - Cardiovascular Cardiovascular exam: Present: regular rate and rhythm - GI/Abdominal GI/Abdominal exam: Present: normal bowel sounds. Absent: distended - Extremities Exam Extremities exam: Present: normal capillary refill - Back Exam Back exam: Present: normal inspection - Neurological Exam Neurological exam: Present: alert, oriented X3 - Psychiatric Psychiatric exam: Present: normal affect, normal mood - Skin Skin exam: Present: normal color, warm. 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 records were faxed to [facility])
[2016-11-03] MEDS: ASPIRIN EC 81 MG TABLET PO SCH (08:46)
[2016-11-03] MEDS: LEVOTHYROXINE 100 MCG TABLET PO SCH (08:46)
[2016-11-03] MEDS: AMIODARONE 200 MG TABLET PO SCH (08:46)
[2016-11-03] MEDS: LISINOPRIL 2.5 MG TABLET PO SCH (08:46)
[2016-11-03] MEDS: CARVEDILOL 12.5 MG TABLET PO SCH ×2 (08:46→20:39)
[2016-11-03] MEDS: FUROSEMIDE 40 MG TABLET PO SCH (08:46)
[2016-11-03] MEDS: PANTOPRAZOLE 40 MG TABLET PO SCH (08:46)
[2016-11-03] MEDS: MAGNESIUM SULF RIDER 2 GM in PREMIX 1 EACH IV PRN (08:48)
--- NOTE | 2016-11-03 08:52 | EKG Report ---
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
--- NOTE | 2016-11-03 11:20 | Cardiology Progress Note ---
<Lauren Joyce - Last Filed: 11/03/16 11:04> Assessment and Plan (1) Pulmonary embolism Status: Acute Assessment and plan: SEE PLAN OF CARE LISTED BELOW. Current Visit: Yes (2) Atrial fibrillation with rapid ventricular response Status: Resolved Assessment and plan: SEE PLAN OF CARE LISTED BELOW. Current Visit: Yes (3) Paroxysmal a-fib Status: Chronic Assessment and plan: SEE PLAN OF CARE LISTED BELOW. Current Visit: Yes (4) Acute DVT (deep venous thrombosis) Status: Acute Assessment and plan: SEE PLAN OF CARE LISTED BELOW. 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 Current Visit: Yes (6) Nonischemic cardiomyopathy Status: Chronic Assessment and plan: SEE PLAN OF CARE LISTED BELOW. Current Visit: Yes (7) Hypertension Status: Chronic Assessment and plan: SEE PLAN OF CARE LISTED BELOW. Current Visit: Yes (8) Hypothyroidism Status: Acute Assessment and plan: SEE PLAN OF CARE LISTED BELOW. Current Visit: Yes (9) GERD (gastroesophageal reflux disease) Status: Chronic Assessment and plan: SEE PLAN OF CARE LISTED BELOW. Current Visit: Yes (10) LV (left ventricular) mural thrombus Status: Chronic Assessment and plan: SEE PLAN OF CARE LISTED BELOW. Current Visit: Yes Cardiology - PN: Subj Interval history: MANAGER WELLNESS: [facility] SUMMARY Mr. Franklin is a 46 year old male without known history of coronary artery disease, routinely followed by [facility]. Cardiac risk factors include: Obesity, hypertension, hypercholesterolemia and sedentary lifestyle. Past medical history includes: Atrial fibrillation (has not been chronically anticoagulated due to bleeding disorder), factor VII deficiency, hypothyroidism , obstructive sleep apnea, GERD and systolic heart failure. Patient reports that he just underwent heart catheterization a few weeks ago at [facility] that was negative. I have requested patient's records from [facility]. He was transferred from [facility] yesterday for suspected pulmonary embolism. He underwent CT angiogram, PE protocol yesterday which revealed large pulmonary thromboembolism, nearly completely occluding the right main pulmonary artery. Moderate amount is present on the left. Venous Dopplers at [facility] revealed DVT to right popliteal vein. Superficial thrombophlebitis right greater saphenous vein. Venous Doppler at our facility was performed which revealed conflicting report. No evidence of DVT was found at our facility. Dr. Maldonado was consulted and is assisting us with management of factor VII deficiency. She was transferred to the telemetry unit yesterday from the CCU. He has tolerated this well. Oxygen has been titrated off. Hematology feels he is stable from their standpoint. They signed off Thursday afternoon. He will follow-up with hematology and [place]. Patient has had paroxysmal atrial fibrillation. Dr. Jimenez is on board. Amiodarone transition to p.o. He has tolerated this well. INR on the 4.0. We will not add anticoagulation given his history of factor VII deficiency. 2016 Patient was seen and examined on the telemetry unit. He continues to be asymptomatic with his pulmonary embolism. Breathing stable. No longer requiring oxygen. Denies chest pain, heaviness or tightness. This morning, he complains of being nauseated and vomiting. He reports that he has vomited one time. He received Zofran which did help. He has not had any more vomiting after receiving Zofran. However, he continues to be slightly nauseous and generally does not feel well. We will continue to observe him on the telemetry unit. Patient is hemodynamically stable. Oxygen saturations stable without oxygen. 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 PVCs. Short runs of atrial flutter, RVR. He had mild episodes of sinus bradycardia and frequent PVCs. could be due to ongoing RV strain. He is at risk of developing symptomatic tachycardia or bradyarrhythmia. Dr. Jimenez is following. At this point, we will continue with current plan of care. No new recommendations. I will discuss with Dr. Cornejo and await his additional recommendations. Anticipate discharge in the next 24-48 hours. Case management consulted for home O2. IMPRESSION AND PLAN 1. PULMONARY EMBOLISM - Clinically stable today. IVC filter in place. Not a candidate for thrombolysis or heparinization given his history of factor VII. No distress. Patient's oxygen has been weaned off. Tolerating well. As long as patient remains asymptomatic, we will hold off on anticoagulation. Anticipate discharge in the next 24-48 hours. Case management consulted for home O2. 2. ATRIAL FIBRILLATION WITH RAPID VENTRICULAR RESPONSE - History of paroxysmal atrial fibrillation. Telemetry reviewed, PVCs. Short runs of atrial flutter, RVR. Occasional, mild sinus bradycardia. Dr. Jimenez is following. Appreciate his recommendations. Amiodarone was decreased to 200 daily today. Patient is on a candidate for anticoagulation due to high risk coagulation factor deficiency. Continue Coreg, amiodarone and renally adjusted digoxin. Continue aspirin. I will further discuss with Dr. Cornejo and await his additional recommendations. 3. ACUTE DVT - IVC filter placed. Repeat venous Doppler at our facility revealed no evidence of DVT. 4. HISTORY OF FACTOR VII DEFICIENCY - Holding thrombolytics/anticoagulation per hematology's recommendations. Will follow up with hematology in [place] as an outpatient. 5. HISTORY OF NONISCHEMIC CARDIOMYOPATHY- Echo revealed EF 25-30%. Without overt heart failure. LHC done 1-2 to weeks ago at [facility] revealed normal coronaries per his report. Records have been requested. Continue beta-blockade , CAROL inhibitor, digoxin, and diuretics. Patient will need a repeat echocardiogram in approximately 3 months to reassess his EF. Daily weights and strict I's and O's. 6. GERD - Continue PPI. 7. HYPOTHYROIDISM - Continue Synthroid. 8. HYPERTENSION - Under well control. Continue current plan of care. Will monitor blood pressure and adjust medications accordingly. 9. NAUSEA/VOMITING - Patient has been nauseous and vomited 1 this morning. He generally does not feel well. Continue as needed Zofran. 10. LV MURAL THROMBUS - This was previously diagnosed at [facility] and on our TTE here there was a very small apical defect that was felt to represent thrombus. Exam (Progress Note) - Constitutional Vitals: Period Temp Pulse Resp BP Sys/Baker Pulse Ox Last 24 Hr 97.2 F-98.3 F 59-65 18-18 114-133/68-82 96-99 Exam: General: Appears well with no apparent distress. Pleasant and cooperative. Appears comfortable. Obese. HEENT: PERRL, normocephalic, atraumatic. Mucous membranes moist. No jaundice noted. Conjunctiva moist and clear, sclerae anicteric Neck: No JVD/HJR, no thyromegaly or lymphadenopathy noted. No carotid bruit appreciated Cardiac: Regular rate and rhythm. No murmur, gallop or rub. Lungs: Clear to auscultation. Without oxygen. Abdomen: Obese. Soft, bowel sounds normoactive. Nontender and nondistended. No abdominal bruit or thrill noted. No masses noted. Extremities: No clubbing, cyanosis noted. No edema noted. Upper extremity pulses 2+. Lower extremity pulses 2+. Capillary refill less than 3 seconds. Skin: No unusual lesions or rashes. No skin breakdown appreciated. Neuro: Awake, alert and oriented 3. Moves all extremities well without hemiparesis or paralysis. No essential tremor is appreciated. Result/EKG - Labs CBC & BMP: 11/03/16 04:11 11/03/16 04:11 Lab Results: I have reviewed the past 24 hour labs Labs: Laboratory Results - last 24 hr 11/03/16 11/03/16 04:11 04:11 WBC 8.6 RBC 4.88 Hgb 13.9 L Hct 41.1 L MCV 84.2 L MCH 29 MCHC 33.8 RDW 13.8 Plt Count 187 MPV 10.5 Neut % (Auto) 74.1 H Lymph % (Auto) 14.5 L [place] % (Auto) 10.2 Eos % (Auto) 0.5 Baso % (Auto) 0.5 Neut # (Auto) 6.3 Lymph # (Auto) 1.2 L [place] # (Auto) 0.9 H Eos # (Auto) 0.0 Baso # (Auto) 0.0 Immature Gran % 0.2 Nucleated RBC % 0.0 Immature Gran # 0.02 Nucleated RBCs # 0.00 Immature Plt Fraction 0.0 Sodium 137 Potassium 4.0 Chloride 103 Carbon Dioxide 26 Anion Gap 12.0 BUN 15 Creatinine 1.30 GFR Calculation 86 BUN/Creatinine Ratio 11.00 Glucose 109 H Calculated Osmolality 274.8 Calcium 9.1 Magnesium 1.7 L Quality Measures - Stroke Symptom Onset Unknown: No Specialty Discharge - Follow Up or Referrals Follow up with: Eduardo Cheng [REFERRING DOCTOR/PRACTITIONER] - 11/10/16 9:00 am (bring all meds in their bottles, 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 records were faxed to [facility]) <Meliton Cornejo - Last Filed: 11/03/16 18:40> Cardiology - PN: Subj Interval history: Patient interview/examined and chart reviewed. Discussed case with Lauren Joyce NP. Agree with assessment and evaluation plan. Dr. Osorio is monitoring the patient's rhythm issues. This appears to be stable at this time. He has a nonischemic cardiomyopathy at this time is fairly stable. The chronicity of this is probably really unknown to us. He has been followed at [facility] previously. He has history of DVT and pulmonary emboli and has an IVC filter in place. He has clotting issues with factor VII deficiency. Patient is being followed by Dr. Maldonado from hematology standpoint. From a cardiac standpoint is been fairly stable. He has had no issues with his coronary disease. We will continue to monitor him and hopefully be able to be discharged before too long. His INRs are at goal. Exam (Progress Note) - Constitutional Vitals: Period Temp Pulse Resp BP Sys/Baker Pulse Ox Last 24 Hr 97.6 F-98.4 F 59-65 18-20 114-190/61-95 95-98 Result/EKG - Labs CBC & BMP: 11/03/16 04:11 11/03/16 04:11 Labs: Laboratory Results - last 24 hr 11/03/16 11/03/16 11/03/16 04:11 04:11 11:43 WBC 8.6 RBC 4.88 Hgb 13.9 L Hct 41.1 L MCV 84.2 L MCH 29 MCHC 33.8 RDW 13.8 Plt Count 187 MPV 10.5 Neut % (Auto) 74.1 H Lymph % (Auto) 14.5 L [place] % (Auto) 10.2 Eos % (Auto) 0.5 Baso % (Auto) 0.5 Neut # (Auto) 6.3 Lymph # (Auto) 1.2 L [place] # (Auto) 0.9 H Eos # (Auto) 0.0 Baso # (Auto) 0.0 Immature Gran % 0.2 Nucleated RBC % 0.0 Immature Gran # 0.02 Nucleated RBCs # 0.00 Immature Plt Fraction 0.0 INR 3.9 PT Patient/Control Mix 41.5 Sodium 137 Potassium 4.0 Chloride 103 Carbon Dioxide 26 Anion Gap 12.0 BUN 15 Creatinine 1.30 GFR Calculation 86 BUN/Creatinine Ratio 11.00 Glucose 109 H Calculated Osmolality 274.8 Calcium 9.1 Magnesium 1.7 L
[2016-11-03 12:11] LABS: INR 3.9
[2016-11-03 12:14] LABS: PT Patient Result 41.5 SECS
[2016-11-03] MEDS: DIGOXIN 0.25 MG TABLET PO SCH (13:26)
[2016-11-04 05:20] LABS: Basophils % 0.5 % (0.0-0.8); Eosinophils # 0.1 10*3/uL (0.0-0.87); Eosinophils % 1.4 % (0.00-10.9); Hematocrit 41.6 VOL% (42.0-52.0); Immature Granulocytes % 0.4 %; Immature Granulocytes Absolute 0.03 #; Lymphocytes % 25.7 % (21.2-54.2); Mean Corpuscular HGB Conc 33.7 GM/DL (32-36); Mean Corpuscular Hemoglobin 29 PG (27-34); Mean Corpuscular Volume 85.2 FL (87-102); Monocytes # 0.9 10*3/uL (0.11-0.8); Monocytes % 11.8 % (1.7-12.7); Neutrophils # 4.6 10*3/uL (1.4-7.4); Neutrophils % 60.2 % (38.7-73.9); Platelet Count 178 T/CUMM (130-400); Red Blood Count 4.88 MC/CUMM (3.8-5.5); Red Cell Distribution Width 14.1 % (9.3-17.3); White Blood Count 7.7 T/CUMM (4-12)
[2016-11-04 05:44] LABS: Calcium 8.8 MG/DL (8.5-10.1); Magnesium 2.1 MG/DL (1.8-2.4); Osmolality,Calculated 277.5 MOS/KG (273-304)
[2016-11-04 06:26] LABS: INR 3.8
[2016-11-04 06:27] LABS: PT Patient Result 41.5 SECS
[2016-11-04] MEDS: LISINOPRIL 2.5 MG TABLET PO SCH (08:51)
[2016-11-04] MEDS: LEVOTHYROXINE 100 MCG TABLET PO SCH (08:51)
[2016-11-04] MEDS: CARVEDILOL 12.5 MG TABLET PO SCH (08:51)
[2016-11-04] MEDS: PANTOPRAZOLE 40 MG TABLET PO SCH (08:51)
[2016-11-04] MEDS: ASPIRIN EC 81 MG TABLET PO SCH (08:51)
[2016-11-04] MEDS: FUROSEMIDE 40 MG TABLET PO SCH (08:51)
[2016-11-04] MEDS: AMIODARONE 200 MG TABLET PO SCH (08:51)
--- NOTE | 2016-11-04 10:00 | Discharge Summary ---
Addendum entered and electronically signed by Lauren Joyce NP 11/04/16 12:00 : I have discussed with Dr. Jimenez and he has requested patient go home with event monitor. This has been arranged. Patient will pick this up from the cardiovascular [place] of the [facility] after being discharged. He will then follow with Dr. Jimenez. 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 Walker is a very pleasant 46-year-old gentleman who resides in [place]. He is found to have factor VII deficiency recently with elevated INR and newly diagnosed nonischemic cardiomyopathy with A. fib and RVR at [facility]. Past medical history includes: Hypertension, hyperlipidemia, hypothyroidism, obstructive sleep apnea(wears CPAP nightly) and GERD. The patient was given fresh frozen plasma for correction of his coagulopathy and underwent left heart catheterization approximately 1-2 weeks ago. The patient was treated for his A. fib with RVR and was found to have a nonischemic cardiomyopathy, was also found to have an LV thrombus at that time. The patient represented last week to [facility] with A. fib with RVR rates exceeding 160 bpm. He was transferred here for the purposes of having an EP evaluation. He was found to have a 100% occluded right pulmonary artery and a approximately 70% occluded left pulmonary artery with thrombus and massive or submassive pulmonary embolism. Venous Dopplers at [facility] revealed DVT to right popliteal vein. Venous Doppler at our facility was performed and revealed no evidence of DVT. Echo revealed EF 25-30%. Without overt heart failure this hospitalization. Patient will need a repeat echocardiogram in approximately 3 months to reassess his EF. Amazingly, despite his massive pulmonary embolism, his blood pressure was perfect, his heart rate was easily controlled and he converted to sinus rhythm with stable oxygen saturations. Hematology was consulted concerning options and recommendations for anticoagulation and potential candidacy for EKOS procedure and thrombolysis with a submassive pulmonary embolism and DVTs. The impression of hematology was that it was likely too risky to proceed with thrombolyzes even at low dose as well as EKOS procedure. We had a lengthy discussion with the patient and his fiance. Ultimately, the decision was made to hold off on anticoagulation as he remained asymptomatic and for him to undergo an IVC filter placement, interventional radiology placed this filter shortly after admission. His INR this hospitalization has ranged from 3.8-4.0 He has 3% functioning of factor VII. Dr. Jimenez saw the patient evaluated and recommended antiarrhythmic therapy and he is being loaded with oral amiodarone. He is hemodynamically stable in sinus rhythm and doing well. Amiodarone now down to 200 daily. Patient has maintained normal sinus rhythm with this dosage. This will be continued at discharge. Chronic anticoagulation was not started given his factor VII deficiency. Patient will be given a follow-up appointment with Dr. Jimenez in 1 week with EKG. Oxygen has been titrated off. He has done well on room air. He has been asymptomatic for several days now. He does not experience dyspnea on exertion. Case management was consulted to assist with possible home oxygen. However, patient did not qualify for this as patient's oxygen saturations did not drop below 95% while walking. Hematology feels he is stable from their standpoint. Dr. Maldonado recommended follow-up with hematology oncology either in [place] or [place] due to the patient's healthcare coverage being allocated and is not taken at the [facility]. I gave patient the option to follow up with Dr. Joanna Sosa or Dr. Allen. He decided that he would rather follow up with Dr. Allen as he is who he has been following for quite some time. I will get him first available follow-up appointment with Dr. Allen with lab. Patient is anxious for discharge home today. Having felt that he has not maximal medical therapy, he will be discharged home in stable condition. Patient verbalizes understanding of discharge instructions and discharge medications. Patient personally interviewed and examined chart reviewed. Discussed this case with Lauren Joyce NP and agree with the assessment and plan of discharge. Patient is stable we will continue present medical therapy. We discharged and followed up as noted. - Time spent with patient Time with patient DS: Greater than 30 minutes Diagnosis - Discharge Diagnosis (1) Pulmonary embolism Status: Acute (2) Atrial fibrillation with rapid ventricular response Status: Resolved (3) Paroxysmal a-fib Status: Chronic (4) Acute DVT (deep venous thrombosis) Status: Resolved (5) History of factor VIII deficiency Status: Chronic (6) Nonischemic cardiomyopathy Status: Chronic (7) Hypertension Status: Chronic (8) Hypothyroidism Status: Chronic (9) GERD (gastroesophageal reflux disease) Status: Chronic (10) LV (left ventricular) mural thrombus Status: Chronic Specialty Discharge - Follow Up or Referrals Follow up with: Chu Jimenez MD [Physician] - 12/05/16 8:00 am (EKG DECEMBER 05, 2016 AT 8:00 AM PLEASE GO TO THE [facility] AT DISCHARGE AND HAVE AN EVENT MONITOR PLACED) Eduardo Cheng [REFERRING DOCTOR/PRACTITIONER] - 11/10/16 9:00 am (bring all meds in their bottles, 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 records were faxed to [facility]) Zeeshan Allen MD [Physician] - 11/17/16 2:45 pm (Patient will need first available follow-up appointment with Dr. Allen with CBC, BMP and EKG. NOVEMBER 17, 2016 AT 2:45 PM. ) Discharge Plan - Discharge Data Disposition: Disch To Home/Self Care Condition at Discharge: Stable Discharge Diet: heart healthy, low fat, low cholesterol, low salt diet Activity: resume usual activities as tolerated Hygiene: no restrictions Weight Bearing at Discharge: weight bear as tolerated Driving: not until seen by doctor Contact your physician if you experience:: fever over 101, Difficulty voiding, Redness or swelling, Nausea/Vomiting, Shortness of breath, Bleeding, pain uncontrolled by pain medications - Discharge Medications New Carvedilol [Coreg] 12.5 mg PO BID #60 tablet Amiodarone Tab [Cordarone Tab] 200 mg PO DAILY #30 tablet Continue Furosemide Tab [Lasix Tab] 40 mg PO DAILY Digoxin Tab [Lanoxin Tab] 0.25 mg PO DAILY@1300 Aspirin [Ecotrin] 81 mg PO DAILY Omeprazole [Prilosec] 20 mg PO DAILY Lisinopril 2.5 mg PO DAILY Levothyroxine Tab [Synthroid Tab] 100 mcg PO DAILY Discontinued Carvedilol [Coreg] 6.25 mg PO BID dilTIAZem HCl [Diltiazem 24Hr ER] 300 mg PO DAILY - Follow Up or Referral Follow Up: Chu Jimenez MD [Physician] - 12/05/16 8:00 am (EKG DECEMBER 05, 2016 AT 8:00 AM PLEASE GO TO THE [facility] AT DISCHARGE AND HAVE AN EVENT MONITOR PLACED) Eduardo Cheng [REFERRING DOCTOR/PRACTITIONER] - 11/10/16 9:00 am (bring all meds in their bottles, 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 records were faxed to [facility]) Zeeshan Allen MD [Physician] - 11/17/16 2:45 pm (Patient will need first available follow-up appointment with Dr. Allen with CBC, BMP and EKG. NOVEMBER 17, 2016 AT 2:45 PM. ) - Forms/Instructions Exam - Constitutional Vitals: Period Temp Pulse Resp BP Sys/Baker Pulse Ox Last 24 Hr 97.6 F-98.4 F 52-77 18-62 113-190/60-98 90-96 Exam: General: Appears well with no apparent distress. Pleasant and cooperative. Appears comfortable. Obese. HEENT: PERRL, normocephalic, atraumatic. Mucous membranes moist. No jaundice noted. Conjunctiva moist and clear, sclerae anicteric Neck: No JVD/HJR, no thyromegaly or lymphadenopathy noted. No carotid bruit appreciated Cardiac: Regular rate and rhythm. No murmur, gallop or rub. Lungs: Clear to auscultation. Without oxygen. Abdomen: Obese. Soft, bowel sounds normoactive. Nontender and nondistended. No abdominal bruit or thrill noted. No masses noted. Extremities: No clubbing, cyanosis noted. No edema noted. Upper extremity pulses 2+. Lower extremity pulses 2+. Capillary refill less than 3 seconds. Skin: No unusual lesions or rashes. No skin breakdown appreciated. Neuro: Awake, alert and oriented 3. Moves all extremities well without hemiparesis or paralysis. No essential tremor is appreciated. Discharge Results Labs on day of discharge: Labs from last 24 hours 11/04/16 11/04/16 11/04/16 04:54 04:54 04:54 WBC 7.7 RBC 4.88 Hgb 14.0 Hct 41.6 L MCV 85.2 L MCH 29 MCHC 33.7 RDW 14.1 Plt Count 178 MPV 10.0 Neut % (Auto) 60.2 Lymph % (Auto) 25.7 [place] % (Auto) 11.8 Eos % (Auto) 1.4 Baso % (Auto) 0.5 Neut # (Auto) 4.6 Lymph # (Auto) 2.0 [place] # (Auto) 0.9 H Eos # (Auto) 0.1 Baso # (Auto) 0.0 Immature Gran % 0.4 Nucleated RBC % 0.0 Immature Gran # 0.03 Nucleated RBCs # 0.00 Immature Plt Fraction 0.0 INR 3.8 PT Patient/Control Mix 41.5 Sodium 139 Potassium 4.0 Chloride 103 Carbon Dioxide 28 Anion Gap 12.0 BUN 16 Creatinine 1.30 GFR Calculation 86 BUN/Creatinine Ratio 12.00 Glucose 95 Calculated Osmolality 277.5 Calcium 8.8 Magnesium 2.1 - Imaging and Cardiology Procedure: Chest x-ray: report reviewed by me, CT - chest: report reviewed by me DS: Provider Date of admission: 10/29/16 10:45 Primary care physician: . No PCP Attending physician on admission: Joanna Sosa DO Consults: 10/29/16 13:05 Consult to Physician [CONS] Routine Comment: History of factor VII, may need thrombolytics. Consulting Provider: Kal Maldonado 10/29/16 14:54 Consult to Physician [CONS] Routine Comment: IVC filter placement Consulting Provider: Karan Haley 10/29/16 14:55 Consult to Physician [CONS] Routine Comment: Consulting Provider: Kal Maldonado 10/29/16 15:04 Consult to Physician [CONS] Routine Comment: Patient as we discussed. Consulting Provider: Chu Jimenez 11/01/16 11:40 Consult to Case Mgmt/Social Srvs [CONS] Routine Reason for Case Mgmt/Social Srvs: Equipment Consult Comment: need help for home O2 arrangement Discharging clinician: Lauren Joyce NP Expected date of discharge: 11/04/16
[2016-11-04 11:04] VITALS: BP 113/67
--- NOTE | 2016-11-04 12:06 | Electrophysiology Progress Not ---
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 Has had atrial fibrillation and atrial flutter with RVR. Now in sinus rhythm. Echo: LVEF 25-30%, , dilated, hypokinetic RV, with Fong sign CTA: massed PE, subtotally occluded right PA, also, clot burden in left PA. 10/29: IVC filter placement A/P: 1. AF/AFL -Still has episodes of paroxysmal atrial fibrillation/AFL, controlled heart rate. Continue amiodarone 200 mg once a day. Continue Coreg 12.5 mg twice daily. -Still not a candidate for anticoagulation, due to high risk coagulation factor deficiency -Continue digoxin, renally adjusted dose. -Continue aspirin. -Occasional sinus bradycardia likely due to medications plus sinus node dysfunction. This may worsen, as the RV/RA strain will likely remain. -Recommend to discharge with a 30 day event recorder. If bradycardia becomes an issue, we may cut back on his antiarrhythmics/rate agents, if refractory we can consider a pacemaker -He is not a candidate for ablation at this time due to inability to anticoagulate and presence of an IVC filter. Current Visit: Yes (2) Acute DVT (deep venous thrombosis) Status: Resolved Assessment and plan: SEE PLAN OF CARE LISTED ABOVE. Current Visit: Yes (3) Dyspnea Status: Acute Assessment and plan: SEE PLAN OF CARE LISTED ABOVE. Current Visit: Yes (4) Venous thromboembolism (VTE) Problem details: Extensive PE bilaterally, h/o bleeding d/o and risk of thrombolysis is high Status: Acute Assessment and plan: SEE PLAN OF CARE LISTED ABOVE. 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 Current Visit: Yes (6) Hypertension Status: Chronic Assessment and plan: SEE PLAN OF CARE LISTED ABOVE. Current Visit: Yes Electrophysiology Subjective Interval history: He is feeling better. No shortness of breath at rest or light activity. Short episode of atrial fibrillation, controlled heart rate overnight. Occasional sinus bradycardia, down to high 30s. Not symptomatic. Exam - Constitutional Vitals: Period Temp Pulse Resp BP Sys/Baker Pulse Ox Last 24 Hr 97.6 F-98.4 F 52-77 18-62 113-190/60-98 90-96 General appearance: no acute distress, morbidly obese - Head Head exam: Present: normal inspection. Absent: abrasion, hematoma - Eye Eye exam: Absent: periorbital swelling, laceration to eyelids Pupils: Absent: dilated - ENT ENT exam: Present: normal external ear exam - Neck Neck exam: Present: normal inspection - Respiratory Respiratory exam: Present: clear to auscultation bilaterally. Absent: wheezes - Cardiovascular Cardiovascular exam: Present: regular rate and rhythm, systolic murmur. Absent : JVD - GI/Abdominal GI/Abdominal exam: Present: normal bowel sounds. Absent: distended - Extremities Exam Extremities exam: Present: normal inspection, normal capillary refill, edema (1+ ) - Back Exam Back exam: Present: normal inspection - Neurological Exam Neurological exam: Present: alert, oriented X3 - Psychiatric Psychiatric exam: Present: normal affect, normal mood - Skin Skin exam: Present: normal color, warm. Absent: cyanosis Results - Labs CBC & BMP: 11/04/16 04:54 11/04/16 04:54 Lab Results: I have reviewed the past 24 hour labs Quality Measures - Stroke Symptom Onset Unknown: No Specialty Discharge - Follow Up or Referrals Follow up with: Chu Jimenez MD [Physician] - 1 Week (EKG Thursday 9:40 AM. 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 records were faxed to [facility]) Zeeshan Allen MD [Physician] - (Patient will need first available follow-up appointment with Dr. Allen with CBC, BMP and EKG.)
[2016-11-04] MEDS: DIGOXIN 0.25 MG TABLET PO SCH (13:38)
--- NOTE | 2016-11-12 18:10 | Cardiology History & Physical ---
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 Echo 10/2016: LVEF 25-30%, , dilated, hypokinetic RV, with oFng sign CTA 10/2016: massed PE, subtotally occluded right PA, also, clot burden in left PA. 10/29/2016: IVC filter placement A/P: -Chest pain, more prominent IVCD, EKG changes suggestive of myocardial injury. I suspect this is due to worsened PE burden, RV strain. Discussed with the entry level manager on-call, Dr. Munoz, we are not going to pursue a STEMI alert as the likelihood of an ACS is low. -Hematological consult. He was not a candidate for TPA or anticoagulation, given his high risk hematological issue. I think the prognosis is terminal, unless we can anticoagulate him. If able, we will start heparin drip. -Surgical consult. 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 I suspect the IVC filter may have clotted. -We will continue aspirin, blood pressure support with pressor as needed, monitoring the Isuprel -AF. This was controlled with medications. I am going to continue digoxin, for inotropic support and rate control -Intermittent SND. Prior to admission, this was more prominent, now heart rate well controlled. This is almost look likely due to RV/RA strain, unlikely to improve unless we can reverse the etiology. -Prognosis is poor (2) Acute DVT (deep venous thrombosis) Status: Resolved Assessment and plan: SEE PLAN OF CARE LISTED ABOVE. (3) Dyspnea Status: Acute Assessment and plan: SEE PLAN OF CARE LISTED ABOVE. (4) Venous thromboembolism (VTE) Problem details: Extensive PE bilaterally, h/o bleeding d/o and risk of thrombolysis is high Status: Acute Assessment and plan: SEE PLAN OF CARE LISTED ABOVE. 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 (6) Hypertension Status: Chronic Assessment and plan: SEE PLAN OF CARE LISTED ABOVE. History of Present Illness Chief complaint: CP, SOB History of present illness: Mr. Franklin is a 46 year old BM, who was hospitalized 2 weeks ago with DVT, submassive PE. He was initially evaluated at [facility] for chest pain shortness of breath, cardiac catheterization showed nonobstructive CAD. He was diagnosed with factor VII deficiency, was seen by Dr. Zapien. He was transferred to [facility], and finally, underwent IVC placement. He was only treated with aspirin, but hematological recommendations. High INR, without recent significant bleeding events. He developed severe chest pain today with shortness of breath. On admission to the emergency room, EKG showed inferior Q waves, IVCD/RBBB, wider than on prior EKG, ST elevation in 3 and aVF, with ST depression in 1 and aVL. His right lower extremity is massively swollen, the skin is very tense. Weak pulse. He is short of breath and hypotensive, blood pressure in the 70s. He is able to lay flat. He was compliant with his medications. No bleeding problems for the past 2 weeks. Home Medications Medication Instructions Recorded Confirmed Type Aspirin [Ecotrin] 81 mg PO DAILY 10/29/16 10/29/16 History Digoxin Tab [Lanoxin Tab] 0.25 mg PO DAILY@1300 10/29/16 10/29/16 History Furosemide Tab [Lasix Tab] 40 mg PO DAILY 10/29/16 10/29/16 History Levothyroxine Tab [Synthroid Tab] 100 mcg PO DAILY 10/29/16 10/29/16 History Lisinopril 2.5 mg PO DAILY 10/29/16 10/29/16 History Omeprazole [Prilosec] 20 mg PO DAILY 10/29/16 10/29/16 History Amiodarone Tab [Cordarone Tab] 200 mg PO DAILY #30 tablet 11/04/16 Rx Carvedilol [Coreg] 12.5 mg PO BID #60 tablet 11/04/16 Rx Allergies Allergy/AdvReac Type Severity Reaction Status Date / Time No Known Allergies Allergy Verified 10/29/16 12:23 12 point system: reviewed and no additional remarkable complaints except as stated Medical,Surgical,& Family Hx - Medical History Cardio: History of: Hypertension, Cardiovascular Problems No history of: Aneurysm, Cardiac Dysrhythmia, Cerebrovascular Disease, CHF, PR, Pacemaker, PVD, Valvular Heart Disease Psychological: No history of: Anxiety Disorders, Behavior Problems, Bipolar Disorder, Depression, Previous Suicide Attempt, Psychiatric/Substance Abuse Tx, Schizophrenia, Violent Behavior, Psychiatric Problems Neurology: No history of: Brain Aneurysm, Cerebral Hemorrhage, Cerebrovascular Accident , Cerebral Palsy, Dementia, Migraine, Multiple Sclerosis, Parkinson's Disease, Peripheral Neuropathy, Seizures, TIA, Vertigo, Neurologocal Cancer Endocrine: History of: Thyroid Disorder Respiratory: History of: Obstructive Sleep Apnea, Respiratory Problems Hematology: History of: Bleeding Problems, Clotting Problems, Blood Disorders - Surgical History Cardiac Surgeries: Sugical HX of: Cardiac Catheterization Patient Denies: Femoral-Popliteal Bypass Graft, Cardiac Surgery, Carotid Endarterectomy, Internal Defibrillator, Vascular Access Devices Thoracic Surgeries: Patient denies;: Organ Transplant, Lobectomy Neurologic Surgeries: Patient denies: Brain Aneurysm, Cerebral Hemorrhage, Neurologic Surgery HEENT Surgeries: Patient denies: Carotid Endarterectomy, Eye Surgery (LEGALLY BLIND), Thyroid Surgery Abdominal Surgeries: Patient denies: Abdominal Surgery, Appendectomy, Cholecystectomy, Colonoscopy , Gastric Bypass Surgery, EGD, Hernia Repair, Splenectomy - Family History Family History: Reports;: Family Hypertension (BROTHER) - Social History Smoking Status: Never smoker Frequency of Alcohol Use: Occasionally Type of Drug Use: Unknown Cardiology Physical Exam - Constitutional Vitals: Vital Signs Temp Pulse Resp BP Pulse Ox 98.4 F 69 18 113/67 93 L 11/04/16 11:03 11/04/16 13:38 11/04/16 11:03 11/04/16 11:03 11/04/16 11:03 General appearance: normal weight, over weight - Head Head exam: Present: normal inspection, normocephalic - Eye Eye exam: Absent: conjunctival injection, scleral icterus Pupils: Present: normal accommodation - ENT ENT exam: Present: normal exam - Neck Neck exam: Present: normal inspection - Respiratory Respiratory exam: Present: clear to auscultation bilaterally, prolonged expiratory phase - Cardiovascular Cardiovascular exam: Present: regular rate and rhythm, systolic murmur, tachycardia. Absent: JVD - GI/Abdominal GI/Abdominal exam: Present: normal bowel sounds - Extremities Exam Extremities exam: Present: other (4+ right lower extremity edema.) - Neurological Exam Neurological exam: Present: alert, oriented X3 - Psychiatric Psychiatric exam: Present: normal affect, normal mood - Skin Skin exam: Present: normal color, warm. Absent: cyanosis Result/EKG - Labs CBC & BMP: 11/04/16 04:54 11/04/16 04:54 Lab Results: I have reviewed the past 24 hour labs - EKG EKG results: interpreted by me Quality Measures - Stroke Symptom Onset Unknown: No
== END 2016-11-04 14:51 | disposition home or self-care (01) | DRG 167 ==
LOC: MERGE 10:45 → N.CC 11:30 → N.TELEN 10-30 18:15
PROVIDERS: ADMIT Internal Medicine Cardiovascular Disease; ATTEND Internal Medicine Cardiovascular Disease

== ENCOUNTER 2016-11-12 17:01 | Inpatient (IN) ==
[2016-11-12 17:39] LABS: Basophils % 0.1 % (0.0-0.8); Eosinophils % 0.1 % (0.00-10.9); Hemoglobin 10.4 GM/DL (14.0-18.0); Immature Granulocytes % 1.5 %; Immature Granulocytes Absolute 0.22 #; Lymphocytes # 1.5 10*3/uL (1.4-4.0); Lymphocytes % 10.8 % (21.2-54.2); Mean Corpuscular HGB Conc 34.7 GM/DL (32-36); Mean Corpuscular Hemoglobin 29 PG (27-34); Mean Platelet Volume 10.7 FL (9.6-12.0); Monocytes # 1.5 10*3/uL (0.11-0.8); Monocytes % 10.6 % (1.7-12.7); Neutrophils % 76.9 % (38.7-73.9); Red Blood Count 3.57 MC/CUMM (3.8-5.5); Red Cell Distribution Width 14.3 % (9.3-17.3); White Blood Count 14.3 T/CUMM (4-12)
[2016-11-12 17:42] LABS: Platelet Count 93 T/CUMM (130-400)
--- NOTE | 2016-11-12 17:49 | Emergency Department Note ---
Katerine Rosenberg Rolonda, am scribing for, and in the presence of, Will Heredia MD 17:29. Yan Rosenberg Charles R, MD, personally performed the services described in this documentation, ascribed by Edvin Garcias in my presence, and it is both accurate and complete [id number] . Arrival - Arrival Chief Complaint: Syncope Stated Complaint: shortness of breath ED Nursing Triage Note: Brought in per EMS s/p syncopal episode. +nausea/ vomiting. +mid-sternal chest pain--describes as pressure. +shortness of breath. Mode of Arrival: Stretcher Limitations: No Limitations Source: Patient, Old Records Reviewed, RN Notes Reviewed - History of Present Illness HPI Narrative: Pt is a 46 y/o male who presents to the ED for further evaluation of mid CP with an onset of x3 days. Pt has a PMHx of HTN and Cardiac dysrhythmia. He states that the pain started Thursday. During triage pt's BP was 93/49. At time of exam pt confirmed that he was still having CP. He states that his right leg has been swollen and painful for x3 days as well. Pt confirms associated sxs of N/V and SOB. No other complaint/pain in ED. Onset (ago): day(s) Consistency: constant Severity: moderate Severity scale (1-10): 4 Quality: other (pressure) Allergies/Adverse Reactions: Allergies Allergy/AdvReac Type Severity Reaction Status Date / Time No Known Allergies Allergy Verified 11/12/16 17:12 Home Medications: Home Medications Medication Instructions Recorded Confirmed Type Amiodarone HCl 200 mg PO DAILY 11/06/16 11/09/16 History Aspirin EC Tab 81 mg PO DAILY 11/06/16 11/09/16 History Carvedilol 12.5 mg PO BID 11/06/16 11/09/16 History Digoxin 250 mcg PO DAILY 11/06/16 11/09/16 History Furosemide Tab [Lasix Tab] 40 mg PO DAILY 11/06/16 11/09/16 History Indomethacin Cap [Indocin Cap] 25 mg PO TID #30 capsule 11/06/16 11/09/16 Rx Levothyroxine Sodium 100 mcg PO DAILY 11/06/16 11/09/16 History Lisinopril 2.5 mg PO DAILY 11/06/16 11/09/16 History Omeprazole 20 mg PO DAILY 11/06/16 11/09/16 History Tizanidine HCl [Zanaflex] 2 mg PO Q6H #40 capsule 11/06/16 11/09/16 Rx Ibuprofen Tab [Motrin Tab] 800 mg PO Q8H #30 tablet 11/09/16 Rx oxyCODONE/ACETAMINOPHEN 5-325 1 tablet PO Q6H #10 tablet 11/09/16 Rx [Percocet 5-325] Review of System - Review of System 12 point system: reviewed and no additional remarkable complaints except as stated - Review of System Constitutional: Absent: chills Eyes: Absent: discharge Head/Ears/Nose/Throat: Absent: earache Respiratory: Absent: cough Cardiovascular: Present: chest pain Gastrointestinal: Absent: abdominal pain Genitourinary male: Absent: dysuria Musculoskeletal: Present: leg pain (right) Skin: Absent: rash Neurological: Absent: headache Psychiatric: Absent: anxiety Endocrine: Absent: cold intolerance Hematological/Lymphatic: Absent: easy bleeding Allergic/Immunologic: Absent: facial swelling Medical,Surgical,& Family Hx - Medical History Cardio: History of: Cardiac Dysrhythmia, Hypertension Endocrine: History of: Thyroid Disorder Gastrointestinal: History of: GERD - Surgical History Cardiac Surgeries: Sugical HX of: Cardiac Catheterization (stent) - Social History Smoking Status: Never smoker Frequency of Alcohol Use: None Type of Drug Use: None Exam Vital Signs: Vital Signs Temperature 97.1 F L 11/12/16 17:01 Pulse Rate 73 11/12/16 17:26 Respiratory Rate 16 11/12/16 17:26 Blood Pressure 86/51 11/12/16 17:26 O2 Sat by Pulse Oximetry 100 11/12/16 17:38 - General General appearance: alert, in distress (mild) - Head Head exam: Present: atraumatic, normocephalic - Eye Eye exam: Present: PERRL, EOMI - ENT ENT exam: Present: mucous membranes moist. Absent: mucous membranes dry - Neck Neck exam: Present: full ROM. Absent: tenderness - Chest Chest inspection: Present: symmetric chest wall rise. Absent: tenderness - Respiratory Respiratory exam: Present: rales (slight) - Cardiovascular Cardiovascular exam: Present: regular rate, normal rhythm, normal heart sounds. Absent: bradycardia - Abdominal Exam Abdominal exam: Present: soft, tenderness, normal bowel sounds - Extremities Exam Extremities exam: Present: full ROM, tenderness (right leg and calf), pedal edema (+3 right leg) - Back Exam Back exam: Present: full ROM. Absent: tenderness - Neurological Exam Neurological exam: Present: alert, oriented X3, CN II-XII intact - Psychiatric Psychiatric exam: Present: normal affect, normal mood - Skin Skin exam: Present: warm, dry, intact, normal color. Absent: rash Course - Consultations Consultation #1: Call Dr. Munoz and Dr. Jimenez, on-call for cardiology we have been discussing the EKG changes. Updated information patient was at [place] on 18 October we had a heart cath done that showed no significant stenosis for stent placement. Patient did have a permanent embolus or IVC filter was placed he also most likely had according to the history DVT in the right lower extremity is which why the right lower extremity is swollen. Patient was sent home be medically managed with the event monitor. Patient's EF at that time was 15%. Looking at the EKG compared from [place] to the one here because we have no comparison there is changes especially in the [address] elevation. After long discussion with Dr. Jimenez we decided that even though on EKG this may look like an ST elevation [place] according to the history and the recent heart catheterization this most likely is a complication from a pulmonary embolus and no need to go to the [employer] is a reason why the STEMI protocol was activated this decision was made by the reconditioning associate Time: 17:20 Consultation #2: Spoke to Dr. Prasad, oncologist on-call we have looked through his past records and history he is got a hereditary factor VII deficiency. Based on all the information we have on him INR is 3.1 going to elect not to give him any type of anticoagulation including heparin drip. This patient is in renal failure he did dig toxic and has a clot disorder that prevents us from treatment with think is most likely an occluded pulmonary embolus. We cannot do an angiogram study on him based on his creatinine. Patient will be treated medically in ICU for comfort care measures at best. Dr. Jimenez will admit the patient Time: 18:28 Results - Labs CBC & BMP: 11/12/16 17:30 11/12/16 17:30 Lab Results: I have reviewed the patients labs Labs: Laboratory Tests 10/04/17 17:30 WBC 14.3 H RBC 3.57 L Hgb 10.4 L Hct 30.0 L MCV 84.0 L Plt Count 93 L Neut % (Auto) 76.9 H Lymph % (Auto) 10.8 L Neut # (Auto) 11.0 H Kinney # (Auto) 1.5 H Critical Care Time Critical Care Time: Yes Total Critical Care Time: 60 Disposition Clinical Impression: Hypotension, Hereditary factor VII deficiency disease, Acute pulmonary embolus , Chest pain, Acute dyspnea, Right bundle branch block with ST's elev, Digitalis toxicity, Hyponatremia, Thrombocytopenia Case discussed with: patient, patient's family, patient's physician Condition: Critical Time of Disposition: 18:33
[2016-11-12 18:05] LABS: Albumin 3.6 G/DL (3.4-5.0); Bilirubin,Total 1.1 MG/DL (0.2-1.0); CKMB % 2.1 %; Calcium 9.4 MG/DL (8.5-10.1); Magnesium 2.6 MG/DL (1.8-2.4); Osmolality,Calculated 289.8 MOS/KG (273-304); Potassium 4.4 MMOL/L (3.5-5.1); Troponin I Only 0.027 NG/ML (0.00-0.045)
[2016-11-12 18:13] LABS: INR 3.1
[2016-11-12 18:14] LABS: PT Patient Result 32.6 SECS
--- NOTE | 2016-11-12 18:19 | Cardiology History & Physical ---
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 Echo 10/2016: LVEF 25-30%, , dilated, hypokinetic RV, with Fong sign CTA 10/2016: massed PE, subtotally occluded right PA, also, clot burden in left PA. 10/29/2016: IVC filter placement A/P: -Chest pain, more prominent IVCD, EKG changes suggestive of myocardial injury. I suspect this is due to worsened PE burden, RV strain. Discussed with the diesel automotive technician on-call, Dr. Munoz, we are not going to pursue a STEMI alert as the likelihood of an ACS is low. -Hematological consult. He was not a candidate for TPA or anticoagulation, given his high risk hematological issue. I think the prognosis is terminal, unless we can anticoagulate him. If able, we will start heparin drip. -Surgical consult. 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 I suspect the IVC filter may have clotted. -We will continue aspirin, blood pressure support with pressor as needed, monitoring the Isuprel -AF. This was controlled with medications. I am going to continue digoxin, for inotropic support and rate control -Intermittent SND. Prior to admission, this was more prominent, now heart rate well controlled. This is almost look likely due to RV/RA strain, unlikely to improve unless we can reverse the etiology. -Prognosis is poor (2) Acute DVT (deep venous thrombosis) Status: Resolved Assessment and plan: SEE PLAN OF CARE LISTED ABOVE. (3) Dyspnea Status: Acute Assessment and plan: SEE PLAN OF CARE LISTED ABOVE. (4) Venous thromboembolism (VTE) Problem details: Extensive PE bilaterally, h/o bleeding d/o and risk of thrombolysis is high Status: Acute Assessment and plan: SEE PLAN OF CARE LISTED ABOVE. 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 (6) Hypertension Status: Chronic Assessment and plan: SEE PLAN OF CARE LISTED ABOVE. History of Present Illness Chief complaint: CP, SOB History of present illness: Mr. Franklin is a 46 year old BM, who was hospitalized 2 weeks ago with DVT, submassive PE. He was initially evaluated at [facility] for chest pain shortness of breath, cardiac catheterization showed nonobstructive CAD. He was diagnosed with factor VII deficiency, was seen by Dr. Zapien. He was transferred to [facility], [place], and finally, underwent IVC placement. He was only treated with aspirin, but hematological recommendations. High INR, without recent significant bleeding events. He developed severe chest pain today with shortness of breath. On admission to the emergency room, EKG showed inferior Q waves, IVCD/RBBB, wider than on prior EKG, ST elevation in 3 and aVF, with ST depression in 1 and aVL. His right lower extremity is massively swollen, the skin is very tense. Weak pulse. He is short of breath and hypotensive, blood pressure in the 70s. He is able to lay flat. He was compliant with his medications. No bleeding problems for the past 2 weeks. Home Medications Medication Instructions Recorded Confirmed Type Aspirin [Ecotrin] 81 mg PO DAILY 10/29/16 10/29/16 History Digoxin Tab [Lanoxin Tab] 0.25 mg PO DAILY@1300 10/29/16 10/29/16 History Furosemide Tab [Lasix Tab] 40 mg PO DAILY 10/29/16 10/29/16 History Levothyroxine Tab [Synthroid Tab] 100 mcg PO DAILY 10/29/16 10/29/16 History Lisinopril 2.5 mg PO DAILY 10/29/16 10/29/16 History Omeprazole [Prilosec] 20 mg PO DAILY 10/29/16 10/29/16 History Amiodarone Tab [Cordarone Tab] 200 mg PO DAILY #30 tablet 11/04/16 Rx Carvedilol [Coreg] 12.5 mg PO BID #60 tablet 11/04/16 Rx Allergies Allergy/AdvReac Type Severity Reaction Status Date / Time No Known Allergies Allergy Verified 10/29/16 12:23 12 point system: reviewed and no additional remarkable complaints except as stated Medical,Surgical,& Family Hx - Medical History Cardio: History of: Hypertension, Cardiovascular Problems No history of: Aneurysm, Cardiac Dysrhythmia, Cerebrovascular Disease, CHF, NC, Pacemaker, PVD, Valvular Heart Disease Psychological: No history of: Anxiety Disorders, Behavior Problems, Bipolar Disorder, Depression, Previous Suicide Attempt, Psychiatric/Substance Abuse Tx, Schizophrenia, Violent Behavior, Psychiatric Problems Neurology: No history of: Brain Aneurysm, Cerebral Hemorrhage, Cerebrovascular Accident , Cerebral Palsy, Dementia, Migraine, Multiple Sclerosis, Parkinson's Disease, Peripheral Neuropathy, Seizures, TIA, Vertigo, Neurologocal Cancer Endocrine: History of: Thyroid Disorder Respiratory: History of: Obstructive Sleep Apnea, Respiratory Problems Hematology: History of: Bleeding Problems, Clotting Problems, Blood Disorders - Surgical History Cardiac Surgeries: Sugical HX of: Cardiac Catheterization Patient Denies: Femoral-Popliteal Bypass Graft, Cardiac Surgery, Carotid Endarterectomy, Internal Defibrillator, Vascular Access Devices Thoracic Surgeries: Patient denies;: Organ Transplant, Lobectomy Neurologic Surgeries: Patient denies: Brain Aneurysm, Cerebral Hemorrhage, Neurologic Surgery HEENT Surgeries: Patient denies: Carotid Endarterectomy, Eye Surgery (LEGALLY BLIND), Thyroid Surgery Abdominal Surgeries: Patient denies: Abdominal Surgery, Appendectomy, Cholecystectomy, Colonoscopy , Gastric Bypass Surgery, EGD, Hernia Repair, Splenectomy - Family History Family History: Reports;: Family Hypertension (BROTHER) - Social History Smoking Status: Never smoker Frequency of Alcohol Use: Occasionally Type of Drug Use: Unknown Cardiology Physical Exam - Constitutional Vitals: Vital Signs Temp Pulse Resp BP Pulse Ox 98.4 F 69 18 113/67 93 L 11/04/16 11:03 11/04/16 13:38 11/04/16 11:03 11/04/16 11:03 11/04/16 11:03 General appearance: normal weight, over weight - Head Head exam: Present: normal inspection, normocephalic - Eye Eye exam: Absent: conjunctival injection, scleral icterus Pupils: Present: normal accommodation - ENT ENT exam: Present: normal exam - Neck Neck exam: Present: normal inspection - Respiratory Respiratory exam: Present: clear to auscultation bilaterally, prolonged expiratory phase - Cardiovascular Cardiovascular exam: Present: regular rate and rhythm, systolic murmur, tachycardia. Absent: JVD - GI/Abdominal GI/Abdominal exam: Present: normal bowel sounds - Extremities Exam Extremities exam: Present: other (4+ right lower extremity edema.) - Neurological Exam Neurological exam: Present: alert, oriented X3 - Psychiatric Psychiatric exam: Present: normal affect, normal mood - Skin Skin exam: Present: normal color, warm. Absent: cyanosis Result/EKG - Labs CBC & BMP: 11/04/16 04:54 11/04/16 04:54 Lab Results: I have reviewed the past 24 hour labs - EKG EKG results: interpreted by me Quality Measures - Stroke Symptom Onset Unknown: No Current Visit: Yes History of Present Illness Chief complaint: CP, SOB History of present illness: Mr. Franklin is a 46 year old male Home Medications Medication Instructions Recorded Confirmed Type Amiodarone HCl 200 mg PO DAILY 11/06/16 11/09/16 History Aspirin EC Tab 81 mg PO DAILY 11/06/16 11/09/16 History Carvedilol 12.5 mg PO BID 11/06/16 11/09/16 History Digoxin 250 mcg PO DAILY 11/06/16 11/09/16 History Furosemide Tab [Lasix Tab] 40 mg PO DAILY 11/06/16 11/09/16 History Indomethacin Cap [Indocin Cap] 25 mg PO TID #30 capsule 11/06/16 11/09/16 Rx Levothyroxine Sodium 100 mcg PO DAILY 11/06/16 11/09/16 History Lisinopril 2.5 mg PO DAILY 11/06/16 11/09/16 History Omeprazole 20 mg PO DAILY 11/06/16 11/09/16 History Tizanidine HCl [Zanaflex] 2 mg PO Q6H #40 capsule 11/06/16 11/09/16 Rx Ibuprofen Tab [Motrin Tab] 800 mg PO Q8H #30 tablet 11/09/16 Rx oxyCODONE/ACETAMINOPHEN 5-325 1 tablet PO Q6H #10 tablet 11/09/16 Rx [Percocet 5-325] Allergies Allergy/AdvReac Type Severity Reaction Status Date / Time No Known Allergies Allergy Verified 11/12/16 17:12 Medical,Surgical,& Family Hx - Medical History Cardio: History of: Cardiac Dysrhythmia, Hypertension Endocrine: History of: Thyroid Disorder Gastrointestinal: History of: GERD - Surgical History Cardiac Surgeries: Sugical HX of: Cardiac Catheterization (stent) - Social History Smoking Status: Never smoker Frequency of Alcohol Use: None Type of Drug Use: None Cardiology Physical Exam - Constitutional Vitals: Vital Signs Temp Pulse Resp BP Pulse Ox 97.1 F L 73 16 86/51 100 11/12/16 17:01 11/12/16 17:26 11/12/16 17:26 11/12/16 17:26 11/12/16 17:38 Intake and Output 11/12/16 11/12/16 11/12/16 07:59 15:59 23:59 Other: Weight 94.347 kg Patient Weight 11/12/16 23:59 Weight 94.347 kg Result/EKG - Labs CBC & BMP: 11/12/16 17:30 11/12/16 17:30 Labs: Laboratory Results - last 24 hr 11/12/16 11/12/16 11/12/16 17:30 17:30 17:30 WBC 14.3 H RBC 3.57 L Hgb 10.4 L Hct 30.0 L MCV 84.0 L MCH 29 MCHC 34.7 RDW 14.3 Plt Count 93 L MPV 10.7 Neut % (Auto) 76.9 H Lymph % (Auto) 10.8 L [place] % (Auto) 10.6 Eos % (Auto) 0.1 Baso % (Auto) 0.1 Neut # (Auto) 11.0 H Lymph # (Auto) 1.5 [place] # (Auto) 1.5 H Eos # (Auto) 0.0 Baso # (Auto) 0.0 Immature Gran % 1.5 Nucleated RBC % 0.0 Immature Gran # 0.22 Nucleated RBCs # 0.00 Immature Plt Fraction 0.0 INR 3.1 PT Patient/Control Mix 32.6 Sodium 130 L Potassium 4.4 Chloride 94 L Carbon Dioxide 20 L Anion Gap 20.4 H BUN 96 H Creatinine 7.00 H GFR Calculation 11 BUN/Creatinine Ratio 13.00 Glucose 91 POC Glucose Calculated Osmolality 289.8 Calcium 9.4 Magnesium 2.6 H Total Bilirubin 1.10 H AST 53 H ALT 59 Alkaline Phosphatase 127 H Total Creatine Kinase 555 H CK-MB (CK-2) 11.8 H CK and CKMB Interp 2.1 Troponin I 0.027 Total Protein 8.0 Albumin 3.6 Globulin 4.4 H Albumin/Globulin Ratio 0.8 L 11/12/16 17:48 WBC RBC Hgb Hct MCV MCH MCHC RDW Plt Count MPV Neut % (Auto) Lymph % (Auto) [place] % (Auto) Eos % (Auto) Baso % (Auto) Neut # (Auto) Lymph # (Auto) [place] # (Auto) Eos # (Auto) Baso # (Auto) Immature Gran % Nucleated RBC % Immature Gran # Nucleated RBCs # Immature Plt Fraction INR PT Patient/Control Mix Sodium Potassium Chloride Carbon Dioxide Anion Gap BUN Creatinine GFR Calculation BUN/Creatinine Ratio Glucose POC Glucose 104 Calculated Osmolality Calcium Magnesium Total Bilirubin AST ALT Alkaline Phosphatase Total Creatine Kinase CK-MB (CK-2) CK and CKMB Interp Troponin I Total Protein Albumin Globulin Albumin/Globulin Ratio
[2016-11-12] MEDS ORDERED: MAGNESIUM SULF RIDER 4 GM in PREMIX 1 EACH IV PRN (18:21)
[2016-11-12] MEDS ORDERED: DOCUSATE SODIUM 100 MG CAPSULE PO PRN (18:21)
[2016-11-12 18:30] LABS: Platelet Estimate Decreased
[2016-11-12] MEDS ORDERED: SODIUM CHLORIDE 0.9% 500 ML IV ONE (18:36)
--- NOTE | 2016-11-12 18:56 | Ultrasound Report ---
Exam: US venous doppler LE RT Indication: Pain and swelling Technique: Singh scale Doppler with color flow with spectral broadening was performed in routine fashion of the lower extremities per routine protocol Findings: Occlusive thrombus extending from the popliteal through the common femoral veins. Impression: Extensive thrombus involving the popliteal to the common femoral vein. Ultrasound images were captured and stored. PROCEDURE INTERPRETED AT [facility] DEPARTMENT OF RADIOLOGY Final Report Signed by: Yris Singh MD
[2016-11-12] MEDS ORDERED: NOREPINEPHRINE 8 MG in SODIUM CHLORIDE 0.9% 242 ML IV SCH (19:00)
[2016-11-12] MEDS ORDERED: MORPHINE 2 MG/1 ML SYRINGE IV PRN (19:05)
[2016-11-12] MEDS: MORPHINE 2 MG/1 ML SYRINGE IV PRN (20:41)
[2016-11-12] MEDS: SODIUM CHLORIDE 0.9% 1,000 ML IV SCH (20:42)
[2016-11-12 20:45] LABS: Apearance,Urine CLOUDY (Clear); Bilirubin,Urine Negative (Negative); Blood, Urine Small mg/dL (Negative); Glucose,Urine (UA) Negative (Negative); Hyaline Casts,Urine 19 /LPF (0-3); Ketones,Urine Negative (Negative); Mucus,Urine Occasional /LPF (Occasional); Nitrite,Urine Negative (Negative); Protein,Urine 30 MG/DL; RBC,Urine 3 /HPF (0-4); Squamous Epithelial Cell,Urine Occasional /HPF (0-10); Urine Color Amber (Yellow); Urine Specific Gravity 1.017 (1.001-1.035); WBC,Urine 12 /HPF (0-6)
[2016-11-12] MEDS: tiZANidine 4 MG TABLET PO SCH (21:41)
[2016-11-13] MEDS: MORPHINE 2 MG/1 ML SYRINGE IV PRN ×2 (01:19→09:17)
[2016-11-13] MEDS: tiZANidine 4 MG TABLET PO SCH ×4 (03:07→18:09)
[2016-11-13 04:59] LABS: Basophils % 0.1 % (0.0-0.8); Eosinophils % 0.3 % (0.00-10.9); Hematocrit 28.8 VOL% (42.0-52.0); Hemoglobin 9.8 GM/DL (14.0-18.0); Immature Granulocytes Absolute 0.12 #; Lymphocytes # 1.1 10*3/uL (1.4-4.0); Lymphocytes % 9.3 % (21.2-54.2); Mean Corpuscular Hemoglobin 29 PG (27-34); Mean Platelet Volume 10.5 FL (9.6-12.0); Monocytes # 1.2 10*3/uL (0.11-0.8); Monocytes % 10.3 % (1.7-12.7); Neutrophils # 9.5 10*3/uL (1.4-7.4); Platelet Count 86 T/CUMM (130-400); Red Blood Count 3.39 MC/CUMM (3.8-5.5); Red Cell Distribution Width 14.6 % (9.3-17.3); White Blood Count 12.1 T/CUMM (4-12)
[2016-11-13 05:27] LABS: Band Neutrophils 1 % (0-10); Eosinophils 1 % (0-10); Lymphocytes 7 % (20-55); Platelet Estimate Decreased; Segmented Neutrophils 81 % (50-85); Total Cells Counted 100
[2016-11-13 05:28] LABS: Albumin 3.3 G/DL (3.4-5.0); Bilirubin,Total 1.2 MG/DL (0.2-1.0); Calcium 8.8 MG/DL (8.5-10.1); Giant Platelets Few; Hypochromasia 1+; Magnesium 2.4 MG/DL (1.8-2.4); Osmolality,Calculated 296.4 MOS/KG (273-304); Ovalocytes Slight; Potassium 4.2 MMOL/L (3.5-5.1); Total Protein 7.6 G/DL (6.4-8.3)
[2016-11-13] MEDS: LEVOTHYROXINE 100 MCG TABLET PO SCH (06:55)
--- NOTE | 2016-11-13 07:57 | Order Completion Report ---
See report scanned to EMR
--- NOTE | 2016-11-13 08:19 | Nephrology Consult Note ---
History of Present Illness Chief complaint: arf History of present illness: Mr. Franklin is a 46 year old male with factor VII deficiency and who recently had massive pulmonary emboli and a big DVT leading to significant swelling in the right leg. Treatment of his clots has been problematic. Hematology has been following him. He presents now saying that he has been making urine without difficulty but his creatinine is noted to be 6-1/2. He is in no distress and his chest is clear. He has massive swelling of his right leg. He is breathing comfortably lying flat. Creatinine is down slightly today from yesterday. He does have a Hernández catheter. Most of his medical records are at [place] and we will try to obtain those are evaluate them when we are there today. Impression acute renal failure #2 factor VII deficiency #3 pulmonary emboli and DVT Plan we will get a renal ultrasound and see we can do Dopplers of the renal vessels and evaluate for possible renal vein thrombosis. Will rule out obstruction with the ultrasound as well. Home Medications Medication Instructions Recorded Confirmed Type Amiodarone HCl 200 mg PO QAM 11/06/16 11/12/16 History Aspirin EC Tab 81 mg PO QAM 11/06/16 11/12/16 History Carvedilol 12.5 mg PO BID 11/06/16 11/12/16 History Digoxin 250 mcg PO QAM 11/06/16 11/12/16 History Furosemide Tab [Lasix Tab] 40 mg PO QAM 11/06/16 11/12/16 History Levothyroxine Sodium 100 mcg PO QAM 11/06/16 11/12/16 History Lisinopril 2.5 mg PO QAM 11/06/16 11/12/16 History Omeprazole 20 mg PO QAM 11/06/16 11/12/16 History Ibuprofen Tab [Motrin Tab] 800 mg PO Q8H #30 tablet 11/09/16 11/12/16 Rx Oxycodone HCl/Acetaminophen 1 tablet PO Q6HR PRN 11/12/16 11/12/16 History [Oxycodone-Acetaminophen 5-325] Allergies Allergy/AdvReac Type Severity Reaction Status Date / Time No Known Allergies Allergy Verified 11/12/16 17:12 Medical,Surgical,& Family Hx - Medical History Cardio: History of: Cardiac Dysrhythmia, CAD, Hypertension, Cardiovascular Problems Endocrine: History of: Thyroid Disorder Respiratory: History of: Obstructive Sleep Apnea, Pulmonary Embolism Gastrointestinal: History of: GERD - Surgical History Cardiac Surgeries: Sugical HX of: Cardiac Catheterization (stent) Thoracic Surgeries: Patient denies;: Organ Transplant Neurologic Surgeries: Patient denies: Neurologic Surgery Orthopedic Surgeries: Surgical HX of;: Orthopedic Surgery (2 knee surgeries in the 80's) - Family History Family History: Reports;: Family Cancer, Family Diabetes, Family Hematology, Family Hypertension, Family Stroke - Social History Smoking Status: Never smoker Frequency of Alcohol Use: None Type of Drug Use: None Review of Systems 12 point system: reviewed and no additional remarkable complaints except as stated Exam - Vital Signs Vital signs: Period Temp Pulse Resp BP Sys/Baker Pulse Ox Last 24 Hr 96.0 F-97.1 F 57-84 9-20 82-128/44-109 95-100 - General Appearance General appearance: well-developed, well-nourished, appears started age EENT: ATNC Neck: no JVD, no thyromegaly, no carotid bruit, supple Respiratory: no kyphosis, no scoliosis Cardiology: no murmurs, no rub, no gallops, no edema, regular rate, regular rhythm, normal S1, normal S2 Gastrointestinal: normoactive bowel sounds Integumentary: no rash, warm and dry Neurologic: no focal deficit, no asterixis, alert and oriented x3, reflexes 2+ and symmetric, gait normal, strength 5/5 Musculoskeletal: no deformities, no erythema, no cyanosis, no clubbing Psychiatric: mood/affect appropriate, cooperative Results - Labs CBC & BMP: 11/13/16 04:30 11/13/16 04:30 Assessment and Plan - Time spent with patient Time spent with patient: Greater than 30 minutes (1) Pulmonary embolism Status: Acute Current Visit: Yes Specialty Discharge - Follow Up or Referrals - Speciality Discharge Instructions Nephrology Instructions: We will get a renal ultrasound today with evaluation of the renal veins
--- NOTE | 2016-11-13 08:20 | Cardiology Progress Note ---
Assessment and Plan - Time spent with patient Time spent with patient: Greater than 30 minutes (1) Chest pain Status: Acute Assessment and plan: SEE PLAN OF CARE LISTED BELOW. Current Visit: Yes (2) Digitalis toxicity Status: Acute Assessment and plan: SEE PLAN OF CARE LISTED BELOW. 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 Current Visit: Yes (4) Presence of IVC filter Status: Chronic Assessment and plan: SEE PLAN OF CARE LISTED BELOW. Current Visit: Yes (5) Pulmonary embolism Status: Acute Assessment and plan: SEE PLAN OF CARE LISTED BELOW. Current Visit: Yes (6) Dyspnea Status: Acute Assessment and plan: SEE PLAN OF CARE LISTED BELOW. Current Visit: Yes (7) GERD (gastroesophageal reflux disease) Status: Chronic Assessment and plan: SEE PLAN OF CARE LISTED BELOW. Current Visit: No (8) Nonischemic cardiomyopathy Status: Chronic Assessment and plan: SEE PLAN OF CARE LISTED BELOW. Current Visit: No (9) Paroxysmal a-fib Status: Chronic Assessment and plan: SEE PLAN OF CARE LISTED BELOW. Current Visit: No (10) Acute DVT (deep venous thrombosis) Status: Acute Assessment and plan: SEE PLAN OF CARE LISTED BELOW. Current Visit: Yes (11) Hypothyroid Status: Chronic Assessment and plan: SEE PLAN OF CARE LISTED BELOW. Current Visit: Yes (12) Hypertension Status: Chronic Assessment and plan: SEE PLAN OF CARE LISTED BELOW. 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 Walker is a very pleasant 46-year-old gentleman who resides in [place]. He is found to have factor VII deficiency recently with elevated INR and newly diagnosed nonischemic cardiomyopathy with A. fib and RVR at [facility]. Past medical history includes: Hypertension, hyperlipidemia, hypothyroidism, obstructive sleep apnea(wears CPAP nightly) and GERD. The patient was given fresh frozen plasma for correction of his coagulopathy and underwent left heart catheterization October 2016. The patient was treated for his A. fib with RVR and was found to have a nonischemic cardiomyopathy, was also found to have an LV thrombus at that time. The patient represented last to [facility] late October 2016 with A. fib with RVR rates exceeding 160 bpm. He was then transferred to our facility for the purposes of having an EP evaluation. He was found to have a 100% occluded right pulmonary artery and a approximately 70 % occluded left pulmonary artery with thrombus and massive or submassive pulmonary embolism. Venous Dopplers at [facility] revealed DVT to right popliteal vein. Venous Doppler at our facility was performed and revealed no evidence of DVT. Echo revealed EF 25-30%. Hematology was consulted concerning options and recommendations for anticoagulation and potential candidacy for EKOS procedure and thrombolysis with a submassive pulmonary embolism and DVTs. The impression of hematology was that it was likely too risky to proceed with thrombolyzes even at low dose as well as EKOS procedure. Ultimately, the decision was made to hold off on anticoagulation as he remained asymptomatic and for him to undergo an IVC filter placement, interventional radiology placed this filter shortly after admission. Dr. Jimenez saw the patient evaluated and recommended antiarrhythmic therapy, patient was loaded with oral amiodarone. Chronic anticoagulation was not started given his factor VII deficiency. He was discharged home November 04, 2016 in stable condition. Patient represented to [facility] November 12, 2016 after having a syncopal episode. He reports having chest pain and shortness of breath when he came back to. On admission to the emergency room, EKG showed inferior Q waves, IVCD/RBBB, wider than on prior EKG, ST elevation in 3 and aVF , with ST depression in 1 and aVL. Thought to be secondary to RV strain from his previous acute massive pulmonary embolism. His right lower extremity is massively swollen, the skin is very tense. Weak pulse. Venous ultrasound was performed and revealed extensive obstructive thrombus involving the popliteal to the common femoral vein. Creatinine upon admission 7.0. Patient noted to be in acute renal failure. Nephrology consulted. Renal ultrasound unremarkable. NOVEMBER 13, 2016 Patient was seen and examined in the CCU today. He appears to be hemodynamically stable. Without acute distress. Requiring oxygen via nasal cannula. Sats stable. Without complaints of chest pain, heaviness or tightness. INR is yesterday 3.1. Creatinine this morning slightly better at 6.6. An ultrasound unremarkable. Nephrology has been consulted. At this point , hematology and surgery has been consulted to assist. Will consider heparin drip. If surgery feels that catheter directed thrombolyzes will be an option for his right DVT. Could consider this approach for his pulmonary embolism as well. In the meantime, we will continue aspirin. I will further discuss with Dr. Jimenez and his additional recommendations. IMPRESSION AND PLAN 1. CHEST PAIN - EKG changes suggestive of myocardial injury. I suspect this is due to worsened PE burden, RV strain. Likelihood of an ACS is low. 2. PULMONARY EMBOLISM WITH RV STRAIN - Hematology consult. Will consider heparin drip. If surgery feels that catheter directed thrombolyzes will be an option for his right DVT. Could consider this approach for his pulmonary embolism as well. In the meantime, we will continue aspirin. 3. ATRIAL FIBRILLATION - History of paroxysmal atrial fibrillation. Normal sinus rhythm this hospitalization. Will monitor on monitor technician. I have reinitiated patient's amiodarone. Will monitor LFTs with this medication. Patient has been deemed not a candidate for anticoagulation given his history of factor VII deficiency. 4. ACUTE DVT - IVC filter placed 2 weeks. 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 Dr. Collins does not feel that patient is candidate for TPA. Can consider heparin drip. 5. HISTORY OF FACTOR VII DEFICIENCY - Hematology consulted. 6. HISTORY OF NONISCHEMIC CARDIOMYOPATHY- Echo revealed EF 25-30%. Without overt heart failure. LHC done October 2016 at [facility] revealed normal coronaries per his report. Blood pressure will not allow initiation of beta blockade. Avoiding CAROL inhibitor due to fear of worsening renal function. 7. GERD - Continue PPI. 8. HYPOTHYROIDISM - Continue Synthroid. 9. HYPERTENSION - Borderline hypotensive. Holding antihypertensives. 10. DIG TOXICITY - Patient is asymptomatic. Will monitor this closely. No need for reversal agent at this time. Exam (Progress Note) - Constitutional Vitals: Period Temp Pulse Resp BP Sys/Baker Pulse Ox Last 24 Hr 96.0 F-97.1 F 57-84 9-20 82-128/44-109 95-100 Exam: General: Appears well with no apparent distress. Pleasant and cooperative. Appears comfortable. HEENT: PERRL, normocephalic, atraumatic. Mucous membranes moist. No jaundice noted. Conjunctiva moist and clear, sclerae anicteric Neck: No JVD/HJR, no thyromegaly or lymphadenopathy noted. No carotid bruit appreciated Cardiac: Regular rate and rhythm. Systolic murmur. Lungs: Clear to auscultation without accessory muscle use to assist the respiratory pattern. Oxygen via nasal cannula. Abdomen: Soft, bowel sounds normoactive. Nontender and nondistended. No abdominal bruit or thrill noted. No masses noted. Extremities: No clubbing, cyanosis noted. 4+ edema to right lower extremity. Upper extremity pulses 2+. Weak pulse to right lower extremity. Capillary refill less than 3 seconds. Skin: No unusual lesions or rashes. No skin breakdown appreciated. Neuro: Awake, alert and oriented 3. Moves all extremities except right lower extremely well without hemiparesis or paralysis. No essential tremor is appreciated. Result/EKG - Labs CBC & BMP: 11/13/16 04:30 11/13/16 04:30 Lab Results: I have reviewed the past 24 hour labs Labs: Laboratory Results - last 24 hr 11/12/16 11/12/16 11/12/16 17:30 17:30 17:30 WBC 14.3 H RBC 3.57 L Hgb 10.4 L Hct 30.0 L MCV 84.0 L MCH 29 MCHC 34.7 RDW 14.3 Plt Count 93 L MPV 10.7 Neut % (Auto) 76.9 H Lymph % (Auto) 10.8 L Harney % (Auto) 10.6 Eos % (Auto) 0.1 Baso % (Auto) 0.1 Neut # (Auto) 11.0 H Lymph # (Auto) 1.5 Harney # (Auto) 1.5 H Eos # (Auto) 0.0 Baso # (Auto) 0.0 Total Counted Immature Gran % 1.5 Nucleated RBC % 0.0 Immature Gran # 0.22 Segmented Neutrophils Band Neutrophils Lymphocytes Monocytes Eosinophils Nucleated RBCs # 0.00 Platelet Estimate Decreased Giant Platelets Immature Plt Fraction 0.0 Hypochromasia Anisocytosis Ovalocytes Morphology Comment INR PT Patient/Control Mix Sodium 130 L Potassium 4.4 Chloride 94 L Carbon Dioxide 20 L Anion Gap 20.4 H BUN 96 H Creatinine 7.00 H GFR Calculation 11 BUN/Creatinine Ratio 13.00 Glucose 91 POC Glucose Calculated Osmolality 289.8 Calcium 9.4 Magnesium 2.6 H Total Bilirubin 1.10 H AST 53 H ALT 59 Alkaline Phosphatase 127 H Total Creatine Kinase 555 H CK-MB (CK-2) 11.8 H CK and CKMB Interp 2.1 Troponin I 0.027 B-Natriuretic Peptide 8 Total Protein 8.0 Albumin 3.6 Globulin 4.4 H Albumin/Globulin Ratio 0.8 L Urine Color Urine Appearance Urine pH Ur Specific Bl[place] Urine Protein Urine Glucose (UA) Urine Ketones Urine Blood Urine Nitrate Urine Bilirubin Urine Urobilinogen Urine Leukocytes Urine RBC Urine WBC Ur Squamous Epith Cells Hyaline Casts Urine Mucus Ur Culture Indicated? Digoxin Blood Type Antibody Screen 11/12/16 11/12/16 11/12/16 17:30 17:30 17:30 WBC RBC Hgb Hct MCV MCH MCHC RDW Plt Count MPV Neut % (Auto) Lymph % (Auto) Harney % (Auto) Eos % (Auto) Baso % (Auto) Neut # (Auto) Lymph # (Auto) Harney # (Auto) Eos # (Auto) Baso # (Auto) Total Counted Immature Gran % Nucleated RBC % Immature Gran # Segmented Neutrophils Band Neutrophils Lymphocytes Monocytes Eosinophils Nucleated RBCs # Platelet Estimate Giant Platelets Immature Plt Fraction Hypochromasia Anisocytosis Ovalocytes Morphology Comment INR 3.1 PT Patient/Control Mix 32.6 Sodium Potassium Chloride Carbon Dioxide Anion Gap BUN Creatinine GFR Calculation BUN/Creatinine Ratio Glucose POC Glucose Calculated Osmolality Calcium Magnesium Total Bilirubin AST ALT Alkaline Phosphatase Total Creatine Kinase CK-MB (CK-2) CK and CKMB Interp Troponin I B-Natriuretic Peptide Total Protein Albumin Globulin Albumin/Globulin Ratio Urine Color Urine Appearance Urine pH Ur Specific [place] Urine Protein Urine Glucose (UA) Urine Ketones Urine Blood Urine Nitrate Urine Bilirubin Urine Urobilinogen Urine Leukocytes Urine RBC Urine WBC Ur Squamous Epith Cells Hyaline Casts Urine Mucus Ur Culture Indicated? Digoxin 3.80 H* Blood Type O POSITIVE Antibody Screen Negative 11/12/16 11/12/16 11/13/16 17:48 20:23 04:30 WBC 12.1 H RBC 3.39 L Hgb 9.8 L Hct 28.8 L MCV 85.0 L MCH 29 MCHC 34.0 RDW 14.6 Plt Count 86 L MPV 10.5 Neut % (Auto) 79.0 H Lymph % (Auto) 9.3 L Harney % (Auto) 10.3 Eos % (Auto) 0.3 Baso % (Auto) 0.1 Neut # (Auto) 9.5 H Lymph # (Auto) 1.1 L Harney # (Auto) 1.2 H Eos # (Auto) 0.0 Baso # (Auto) 0.0 Total Counted 100 Immature Gran % 1.0 Nucleated RBC % 0.0 Immature Gran # 0.12 Segmented Neutrophils 81 Band Neutrophils 1 Lymphocytes 7 L Monocytes 10 Eosinophils 1 Nucleated RBCs # 0.00 Platelet Estimate Decreased Giant Platelets Few Immature Plt Fraction 0.0 Hypochromasia 1+ Anisocytosis Ovalocytes Slight Morphology Comment INR PT Patient/Control Mix Sodium Potassium Chloride Carbon Dioxide Anion Gap BUN Creatinine GFR Calculation BUN/Creatinine Ratio Glucose POC Glucose 104 Calculated Osmolality Calcium Magnesium Total Bilirubin AST ALT Alkaline Phosphatase Total Creatine Kinase CK-MB (CK-2) CK and CKMB Interp Troponin I B-Natriuretic Peptide Total Protein Albumin Globulin Albumin/Globulin Ratio Urine Color Isaura Urine Appearance Cloudy Urine pH 5.0 Ur Specific [place] 1.017 Urine Protein 30 Urine Glucose (UA) Negative Urine Ketones Negative Urine Blood Small Urine Nitrate Negative Urine Bilirubin Negative Urine Urobilinogen 2.0 H Urine Leukocytes Negative Urine RBC 3 Urine WBC 12 Ur Squamous Epith Cells Occasional Hyaline Casts 19 Urine Mucus Occasional Ur Culture Indicated? Results to follow Digoxin Blood Type Antibody Screen 11/13/16 04:30 WBC RBC Hgb Hct MCV MCH MCHC RDW Plt Count MPV Neut % (Auto) Lymph % (Auto) Harney % (Auto) Eos % (Auto) Baso % (Auto) Neut # (Auto) Lymph # (Auto) Harney # (Auto) Eos # (Auto) Baso # (Auto) Total Counted Immature Gran % Nucleated RBC % Immature Gran # Segmented Neutrophils Band Neutrophils Lymphocytes Monocytes Eosinophils Nucleated RBCs # Platelet Estimate Giant Platelets Immature Plt Fraction Hypochromasia Anisocytosis Ovalocytes Morphology Comment INR PT Patient/Control Mix Sodium 133 L Potassium 4.2 Chloride 99 Carbon Dioxide 20 L Anion Gap 18.2 H BUN 100 H Creatinine 6.60 H GFR Calculation 12 BUN/Creatinine Ratio 15.00 Glucose 102 POC Glucose Calculated Osmolality 296.4 Calcium 8.8 Magnesium 2.4 Total Bilirubin 1.20 H AST 47 H ALT 52 Alkaline Phosphatase 122 H Total Creatine Kinase CK-MB (CK-2) CK and CKMB Interp Troponin I B-Natriuretic Peptide Total Protein 7.6 Albumin 3.3 L Globulin 4.3 H Albumin/Globulin Ratio 0.7 L Urine Color Urine Appearance Urine pH Ur Specific [place] Urine Protein Urine Glucose (UA) Urine Ketones Urine Blood Urine Nitrate Urine Bilirubin Urine Urobilinogen Urine Leukocytes Urine RBC Urine WBC Ur Squamous Epith Cells Hyaline Casts Urine Mucus Ur Culture Indicated? Digoxin Blood Type Antibody Screen Quality Measures - VTE Contraindication to Pharmacological VTE Prophylaxis: High Risk of Bleeding Contraindication to Mechanical VTE Prophylaxis: Current Diagnosis of DVT
--- NOTE | 2016-11-13 08:27 | Hematology Consult ---
Assessment and Plan (1) Hereditary factor VII deficiency disease Status: Acute Assessment and plan: See my HPI for discussion. This is a very difficult situation with no right answer. Current Visit: Yes (2) DVT (deep venous thrombosis) Status: Acute Current Visit: Yes (3) Presence of IVC filter Status: Acute Current Visit: Yes (4) Pulmonary embolism Status: Acute Current Visit: Yes (5) Chest pain Status: Acute Current Visit: Yes History of Present Illness - Consult Narrative History of present illness: Mr. Franklin is a 46 year old male with severe factor VII deficiency measured at 2% at [facility] 2 months ago. Since that time he has had issues with numerous thrombi including a large pulmonary emboli. It was decided to not place him on anticoagulation but to place an IVC filter during his hospitalization 2 weeks ago. He presented to the emergency room yesterday with worsening renal function. He also now has a large right lower extremity DVT. He very well may have extensive thrombi. Hematology has been consulted for our opinion on his factor VII deficiency. There is no way to know his risk of bleeding with anticoagulation. It is worth noting that he has never had any bleeding issues previously and that his current issues are thrombotic in nature. The very little research that is available for this shows that these people can be anticoagulated safely. Again, I have no expert opinion on the matter given such a rare disorder but my opinion would be that he could handle anticoagulation. This of course would be very risky, but his current clinical situation of thrombotic disease seems to outweigh his risk of bleeding especially since he has had no history of any type of bleeding. I will defer the final decision for anticoagulation to his primary doctors since I do not consider myself any more of an expert on whether he can be anticoagulated than them. This is a very difficult situation. If anticoagulation is started, I would recommend doing infusional heparin so that he can be discontinued quickly. It would be completely understandable if no anticoagulation is done also. CC: Chu Jimenez MD - Home Medications and Allergies Home Medications: Home Medications Medication Instructions Recorded Confirmed Type Amiodarone HCl 200 mg PO QAM 11/06/16 11/12/16 History Aspirin EC Tab 81 mg PO QAM 11/06/16 11/12/16 History Carvedilol 12.5 mg PO BID 11/06/16 11/12/16 History Digoxin 250 mcg PO QAM 11/06/16 11/12/16 History Furosemide Tab [Lasix Tab] 40 mg PO QAM 11/06/16 11/12/16 History Levothyroxine Sodium 100 mcg PO QAM 11/06/16 11/12/16 History Lisinopril 2.5 mg PO QAM 11/06/16 11/12/16 History Omeprazole 20 mg PO QAM 11/06/16 11/12/16 History Ibuprofen Tab [Motrin Tab] 800 mg PO Q8H #30 tablet 11/09/16 11/12/16 Rx Oxycodone HCl/Acetaminophen 1 tablet PO Q6HR PRN 11/12/16 11/12/16 History [Oxycodone-Acetaminophen 5-325] Allergies/Adverse Reactions: Allergies Allergy/AdvReac Type Severity Reaction Status Date / Time No Known Allergies Allergy Verified 11/12/16 17:12 Medical,Surgical,& Family Hx - Medical History Cardio: History of: Cardiac Dysrhythmia, CAD, Hypertension, Cardiovascular Problems Endocrine: History of: Thyroid Disorder Respiratory: History of: Obstructive Sleep Apnea, Pulmonary Embolism Gastrointestinal: History of: GERD - Surgical History Cardiac Surgeries: Sugical HX of: Cardiac Catheterization (stent) Thoracic Surgeries: Patient denies;: Organ Transplant Neurologic Surgeries: Patient denies: Neurologic Surgery Orthopedic Surgeries: Surgical HX of;: Orthopedic Surgery (2 knee surgeries in the 80s) - Family History Family History: Reports;: Family Cancer, Family Diabetes, Family Hematology, Family Hypertension, Family Stroke - Social History Smoking Status: Never smoker Frequency of Alcohol Use: None Type of Drug Use: None 12 point system: reviewed and no additional remarkable complaints except as stated Exam - Constitutional Vitals: Period Temp Pulse Resp BP Sys/Baker Pulse Ox Last 24 Hr 96.0 F-97.1 F 57-84 9-20 82-128/44-109 95-100 General appearance: normal weight, no acute distress - Head Head Exam: Present: normal inspection, atraumatic - Eye Eye Exam: Present: EOMI Pupils: Present: PERRL - ENT ENT exam: Present: normal exam, normal oropharynx - Neck Neck exam: Absent: lymphadenopathy, thyromegaly - Respiratory Respiratory exam: Present: CTAB. Absent: wheezes - Cardiovascular Cardiovascular exam: Present: RRR. Absent: JVD, systolic murmur - GI/Abdominal GI/Abdominal exam: Present: soft. Absent: ascites, distended, firm, mass - Neurological Exam Neurological exam: Present: alert, oriented X3 - Psychiatric Psychiatric exam: Present: normal affect, normal mood Results - Labs CBC & BMP: 11/13/16 04:30 11/13/16 04:30 Lab Results: I have reviewed the past 24 hour labs - Diagnostic Findings Procedure: Ultrasound: report reviewed by me Quality Measures - VTE Contraindication to Pharmacological VTE Prophylaxis: High Risk of Bleeding Contraindication to Mechanical VTE Prophylaxis: Current Diagnosis of DVT
--- NOTE | 2016-11-13 09:14 | Vascular Surgery Consult Note ---
History of Present Illness Chief complaint: right leg DVT History of present illness: Mr. Franklin is a 46 year old male Mr. Walker is a 46-year-old man admitted with chest pain and shortness of breath but with a significant past history. 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 He recently underwent treatment at [facility] for chest pain apparently was found at that time to have a right leg DVT and pulmonary embolus and had a vena caval filter placed. He was admitted here yesterday with worsening shortness of breath chest pain and increasing swelling of the right leg for the last 3 days. He is able to move the leg states he has normal feeling in the toes his foot leg is warm there does not appear to be any compromised arterial blood flow but it is clearly quite swollen in particular compared to the left leg. Ultrasound reveals occluding thrombus of the right popliteal deep femoral and femoral veins. Complicating this issue is acute renal failure with a creatinine up above 6. At this time I doubt that the vena caval filter is occluded since there is no swelling involving his left leg. He certainly likely has an occluding thrombus of the right femoral and possibly iliac veins. He currently is not in the situation with phlegmasia cerulea dolens but certainly he must be observed for that complication. I believe that the ideal treatment for him would be catheter directed thrombolyzes of his right leg but I do not know that that is feasible with his renal failure and with his bleeding disorder may put him at increased risk for hemorrhage elsewhere. I will discuss this with Dr. Lira and we can decide whether that is a procedure we should attempt. Home Medications Medication Instructions Recorded Confirmed Type Aspirin [Ecotrin] 81 mg PO DAILY 10/29/16 10/29/16 History Digoxin Tab [Lanoxin Tab] 0.25 mg PO DAILY@1300 10/29/16 10/29/16 History Furosemide Tab [Lasix Tab] 40 mg PO DAILY 10/29/16 10/29/16 History Levothyroxine Tab [Synthroid Tab] 100 mcg PO DAILY 10/29/16 10/29/16 History Lisinopril 2.5 mg PO DAILY 10/29/16 10/29/16 History Omeprazole [Prilosec] 20 mg PO DAILY 10/29/16 10/29/16 History Amiodarone Tab [Cordarone Tab] 200 mg PO DAILY #30 tablet 11/04/16 Rx Carvedilol [Coreg] 12.5 mg PO BID #60 tablet 11/04/16 Rx Amiodarone HCl 200 mg PO QAM 11/06/16 11/12/16 History Aspirin EC Tab 81 mg PO QAM 11/06/16 11/12/16 History Carvedilol 12.5 mg PO BID 11/06/16 11/12/16 History Digoxin 250 mcg PO QAM 11/06/16 11/12/16 History Furosemide Tab [Lasix Tab] 40 mg PO QAM 11/06/16 11/12/16 History Levothyroxine Sodium 100 mcg PO QAM 11/06/16 11/12/16 History Lisinopril 2.5 mg PO QAM 11/06/16 11/12/16 History Omeprazole 20 mg PO QAM 11/06/16 11/12/16 History Ibuprofen Tab [Motrin Tab] 800 mg PO Q8H #30 tablet 11/09/16 11/12/16 Rx Oxycodone HCl/Acetaminophen 1 tablet PO Q6HR PRN 11/12/16 11/12/16 History [Oxycodone-Acetaminophen 5-325] Allergies Allergy/AdvReac Type Severity Reaction Status Date / Time No Known Allergies Allergy Verified 11/12/16 17:12 Medical,Surgical,& Family Hx - Medical History Cardio: History of: Cardiac Dysrhythmia, CAD, Hypertension, Cardiovascular Problems No history of: Aneurysm, Cerebrovascular Disease, CHF, [place], Pacemaker, PVD, Valvular Heart Disease Psychological: No history of: Anxiety Disorders, Behavior Problems, Bipolar Disorder, Depression, Previous Suicide Attempt, Psychiatric/Substance Abuse Tx, Schizophrenia, Violent Behavior, Psychiatric Problems Neurology: No history of: Brain Aneurysm, Cerebral Hemorrhage, Cerebrovascular Accident , Cerebral Palsy, Dementia, Migraine, Multiple Sclerosis, Parkinson's Disease, Peripheral Neuropathy, Seizures, TIA, Vertigo, Neurologocal Cancer Endocrine: History of: Thyroid Disorder Respiratory: History of: Obstructive Sleep Apnea, Pulmonary Embolism, Respiratory Problems Gastrointestinal: History of: GERD Hematology: History of: Bleeding Problems, Clotting Problems, Blood Disorders - Surgical History Cardiac Surgeries: Sugical HX of: Cardiac Catheterization (stent) Patient Denies: Femoral-Popliteal Bypass Graft, Cardiac Surgery, Carotid Endarterectomy, Internal Defibrillator, Vascular Access Devices Thoracic Surgeries: Patient denies;: Organ Transplant, Lobectomy Neurologic Surgeries: Patient denies: Brain Aneurysm, Cerebral Hemorrhage, Neurologic Surgery HEENT Surgeries: Patient denies: Carotid Endarterectomy, Eye Surgery (LEGALLY BLIND), Thyroid Surgery Abdominal Surgeries: Patient denies: Abdominal Surgery, Appendectomy, Cholecystectomy, Colonoscopy , Gastric Bypass Surgery, EGD, Hernia Repair, Splenectomy Orthopedic Surgeries: Surgical HX of;: Orthopedic Surgery (2 knee surgeries in the 80's) - Family History Family History: Reports;: Family Cancer, Family Diabetes, Family Hematology, Family Hypertension, Family Stroke - Social History Smoking Status: Never smoker Frequency of Alcohol Use: None Type of Drug Use: None Exam - Constitutional Vitals: Period Temp Pulse Resp BP Sys/Baker Pulse Ox Last 24 Hr 96.0 F-97.1 F 57-84 9-20 82-128/44-109 95-100 Quality Measures - VTE Contraindication to Pharmacological VTE Prophylaxis: High Risk of Bleeding Contraindication to Mechanical VTE Prophylaxis: Current Diagnosis of DVT Results - Labs CBC & BMP: 11/13/16 04:30 11/13/16 04:30
[2016-11-13] MEDS: PANTOPRAZOLE 40 MG TABLET PO SCH (09:17)
[2016-11-13] MEDS: ASPIRIN EC 325 MG TABLET PO SCH (09:17)
--- NOTE | 2016-11-13 09:48 | Ultrasound Report ---
US renal Bilateral, US renal doppler Indication: Acute renal failure, possible renal vein thrombosis. Comparison: None available. Technique: Multiple longitudinal and transverse real-time sonographic images of the kidneys were obtained. Findings: The right kidney measures 13 x 5.3 x 4.6 cm, and the left kidney measures 9.4 x 5.4 x 5.8 cm. There is no evidence of nephrolithiasis or abnormal perinephric fluid collections. Renal cortical echogenicity and thickness are within normal limits. There is no hydronephrosis. There is no evidence of surrounding ascites. Renal Doppler ultrasound demonstrates normal flow within the distal aorta measured at 49 cm/s. Proximal right renal artery: 39 cm/s. Right kidney upper pole: 38 cm/s. Right kidney mid pole: 29 cm/s. Right kidney lower pole: 25 cm/s. Right renal vein: 16 cm/s with normal phasicity. Resistive index: Maximum of 0.79 at the proximal right renal artery. Proximal left renal artery: 39 cm/s. Left kidney upper pole: 39 cm/s. Left kidney midpole: 51 cm/s. Left kidney lower pole: 43 cm/s. Left renal vein: Normal phasicity. Resistive index: Maximum of 0.78 at the lower kidney. There is antegrade diastolic flow within the renal arteries bilaterally. Ultrasound images were captured and stored. IMPRESSION: Essentially unremarkable renal ultrasound. Normal renal artery waveforms with no suggestion of renal artery stenosis. Slightly elevated resistive indices within both kidneys is of uncertain significance but may represent intrinsic renal failure. Bilateral renal veins appear patent. PROCEDURE INTERPRETED AT [facility] DEPARTMENT OF RADIOLOGY Final Report Signed by: Lenny Lira
[2016-11-13] MEDS: AMIODARONE 200 MG TABLET PO SCH (11:30)
[2016-11-13] MEDS: SODIUM CHLORIDE 0.9% 1,000 ML IV SCH ×2 (11:30→23:01)
[2016-11-13] MEDS: HEPARIN DRIP 25,000 UNITS/500 ML PREMIX IV SCH (13:51)
--- NOTE | 2016-11-13 15:25 | Inventional Radiology Consult ---
Assessment and Plan - Time spent with patient Time spent with patient: Less than 30 minutes (1) Acute DVT (deep venous thrombosis) Problem details: This is a rare case with potential for disastrous complications related to anticoagulation or catheter directed therapy but this is unknown at this point Status: Acute Assessment and plan: Dr. Ruiz will be here tomorrow and may have additional input. I would hold on on catheter directed therapy with Tpa at this point. If he developed neurovascular compromise of the right lower extremity, then the decision may be more clear. Any decision for systemic heparinzation will be made by the primary team. Current Visit: Yes IR Consult - Data of Consult Patient: known to practice within the last 3 years Consult date: 11/13/16 Requesting Physician: Gaudencio Collins - Consult Narrative Reason for consult: RLE extensive DVT with leg edema History of present illness: Rigoberto is a 46 year old M With a rare bleeding disorder that is now complicated due to pulmonary emboli and worsening right lower extremity deep venous thrombosis. The patient had an IVC filter placed several weeks ago. The right lower extremity swelling is reported for approximately 3 days. There is no neurovascular compromise within the right lower extremity or significant pain although the amount of edema is significant compared to the left. Renal ultrasound does not demonstrate Thrombosis to correlate with the patient's ongoing worsening renal function. This patient does not have a clear easy answer as to what to do in this situation. I think based on the hematology note, there is significant risk with anticoagulation but this is relatively unknown. He may be okay with anticoagulation although at this point, he does not have aggressive side effects from the right lower extremity thrombus, so I would defer to systemic heparinization as a trial to see if there is improvement. Dr. Ruiz will be here tomorrow and he may have additional input as to the utility, efficacy and safety of catheter directed thrombolytic medicines in this patient. As a separate issue, the IVC filter appears to have somewhat migrated cephalad and the right IVC filter legs appear to be engaged into the right renal vein. Regardless of anticoagulation utilization or not, this IVC filter should be considered for removal and replacement at a later time. - Home Medications and Allergies Home Medications: Home Medications Medication Instructions Recorded Confirmed Type Aspirin [Ecotrin] 81 mg PO DAILY 10/29/16 10/29/16 History Digoxin Tab [Lanoxin Tab] 0.25 mg PO DAILY@1300 10/29/16 10/29/16 History Furosemide Tab [Lasix Tab] 40 mg PO DAILY 10/29/16 10/29/16 History Levothyroxine Tab [Synthroid Tab] 100 mcg PO DAILY 10/29/16 10/29/16 History Lisinopril 2.5 mg PO DAILY 10/29/16 10/29/16 History Omeprazole [Prilosec] 20 mg PO DAILY 10/29/16 10/29/16 History Amiodarone Tab [Cordarone Tab] 200 mg PO DAILY #30 tablet 11/04/16 Rx Carvedilol [Coreg] 12.5 mg PO BID #60 tablet 11/04/16 Rx Amiodarone HCl 200 mg PO QAM 11/06/16 11/12/16 History Aspirin EC Tab 81 mg PO QAM 11/06/16 11/12/16 History Carvedilol 12.5 mg PO BID 11/06/16 11/12/16 History Digoxin 250 mcg PO QAM 11/06/16 11/12/16 History Furosemide Tab [Lasix Tab] 40 mg PO QAM 11/06/16 11/12/16 History Levothyroxine Sodium 100 mcg PO QAM 11/06/16 11/12/16 History Lisinopril 2.5 mg PO QAM 11/06/16 11/12/16 History Omeprazole 20 mg PO QAM 11/06/16 11/12/16 History Ibuprofen Tab [Motrin Tab] 800 mg PO Q8H #30 tablet 11/09/16 11/12/16 Rx Oxycodone HCl/Acetaminophen 1 tablet PO Q6HR PRN 11/12/16 11/12/16 History [Oxycodone-Acetaminophen 5-325] Allergies/Adverse Reactions: Allergies Allergy/AdvReac Type Severity Reaction Status Date / Time No Known Allergies Allergy Verified 11/12/16 17:12 12 point system: reviewed and no additional remarkable complaints except as stated Medical,Surgical,& Family Hx - Medical History Cardio: History of: Cardiac Dysrhythmia, CAD, Hypertension, Cardiovascular Problems No history of: Aneurysm, Cerebrovascular Disease, CHF, [place], Pacemaker, PVD, Valvular Heart Disease Psychological: No history of: Anxiety Disorders, Behavior Problems, Bipolar Disorder, Depression, Previous Suicide Attempt, Psychiatric/Substance Abuse Tx, Schizophrenia, Violent Behavior, Psychiatric Problems Neurology: No history of: Brain Aneurysm, Cerebral Hemorrhage, Cerebrovascular Accident , Cerebral Palsy, Dementia, Migraine, Multiple Sclerosis, Parkinson's Disease, Peripheral Neuropathy, Seizures, TIA, Vertigo, Neurologocal Cancer Endocrine: History of: Thyroid Disorder Respiratory: History of: Obstructive Sleep Apnea, Pulmonary Embolism, Respiratory Problems Gastrointestinal: History of: GERD Hematology: History of: Bleeding Problems, Clotting Problems, Blood Disorders - Surgical History Cardiac Surgeries: Sugical HX of: Cardiac Catheterization (stent) Patient Denies: Femoral-Popliteal Bypass Graft, Cardiac Surgery, Carotid Endarterectomy, Internal Defibrillator, Vascular Access Devices Thoracic Surgeries: Patient denies;: Organ Transplant, Lobectomy Neurologic Surgeries: Patient denies: Brain Aneurysm, Cerebral Hemorrhage, Neurologic Surgery HEENT Surgeries: Patient denies: Carotid Endarterectomy, Eye Surgery (LEGALLY BLIND), Thyroid Surgery Abdominal Surgeries: Patient denies: Abdominal Surgery, Appendectomy, Cholecystectomy, Colonoscopy , Gastric Bypass Surgery, EGD, Hernia Repair, Splenectomy Orthopedic Surgeries: Surgical HX of;: Orthopedic Surgery (2 knee surgeries in the 80's) - Family History Family History: Reports;: Family Cancer, Family Diabetes, Family Hematology, Family Hypertension, Family Stroke - Social History Smoking Status: Never smoker Frequency of Alcohol Use: None Type of Drug Use: None Exam - Labs CBC & BMP: 11/13/16 04:30 11/13/16 04:30 Lab Results: I have reviewed the past 24 hour labs Labs: INR 3.1 11/12/16 17:30 - Constitutional Vitals: Period Temp Pulse Resp BP Sys/Baker Pulse Ox Last 24 Hr 96.0 F-97.1 F 57-84 9-20 82-128/44-109 95-100 General appearance: over weight - Eye Eye exam: Present: EOMI - Respiratory Respiratory exam: Present: clear to auscultation bilaterally - Cardiovascular Cardiovascular exam: Present: regular rate and rhythm - GI/Abdominal GI/Abdominal exam: Present: normal bowel sounds - Expanded Right Lower Upper Leg exam: Present: swelling (3+) Lower leg exam: Present: swelling Foot/Toe exam: Absent: tenderness Neuro vascular tendon exam: Absent: foot drop, motor deficit, no vascular compromise Gait: Present: not tested/not observed - Neurological Exam Neurological exam: Present: alert, oriented X3 - Psychiatric Psychiatric exam: Present: normal affect, normal mood - Skin Skin exam: Present: normal color, dry
--- NOTE | 2016-11-13 21:59 | Order Completion Report ---
See report scanned to EMR
[2016-11-14] MEDS: tiZANidine 4 MG TABLET PO SCH ×4 (00:15→18:18)
[2016-11-14 01:25] LABS: Eosinophils # 0.1 10*3/uL (0.0-0.87); Eosinophils % 0.8 % (0.00-10.9); Hematocrit 27.3 VOL% (42.0-52.0); Hemoglobin 9.2 GM/DL (14.0-18.0); Immature Granulocytes % 1.2 %; Immature Granulocytes Absolute 0.09 #; Lymphocytes # 1.1 10*3/uL (1.4-4.0); Lymphocytes % 13.7 % (21.2-54.2); Mean Corpuscular HGB Conc 33.7 GM/DL (32-36); Mean Corpuscular Hemoglobin 29 PG (27-34); Mean Corpuscular Volume 85.8 FL (87-102); Mean Platelet Volume 9.8 FL (9.6-12.0); Monocytes # 1.1 10*3/uL (0.11-0.8); Neutrophils # 5.5 10*3/uL (1.4-7.4); Neutrophils % 70.3 % (38.7-73.9); Red Blood Count 3.18 MC/CUMM (3.8-5.5); Red Cell Distribution Width 14.7 % (9.3-17.3); White Blood Count 7.8 T/CUMM (4-12)
[2016-11-14 01:29] LABS: Platelet Count 98 T/CUMM (130-400)
[2016-11-14 02:00] LABS: Calcium 8.4 MG/DL (8.5-10.1); Magnesium 2.4 MG/DL (1.8-2.4); Osmolality,Calculated 295.2 MOS/KG (273-304); Potassium 4.3 MMOL/L (3.5-5.1)
[2016-11-14 02:08] LABS: Platelet Estimate Adequate
[2016-11-14 02:09] LABS: Ovalocytes 1+
[2016-11-14] MEDS: MORPHINE 2 MG/1 ML SYRINGE IV PRN (04:55)
[2016-11-14 05:24] LABS: INR 2.6; Partial Thromboplastin Time 40.8 SECS (0-40)
[2016-11-14 05:25] LABS: PT Patient Result 27.8 SECS
[2016-11-14] MEDS: LEVOTHYROXINE 100 MCG TABLET PO SCH (06:44)
[2016-11-14] MEDS: SODIUM CHLORIDE 0.9% 1,000 ML IV SCH ×2 (07:49→17:49)
--- NOTE | 2016-11-14 09:02 | Event Note ---
Mr. Walker's leg is still warm and tight perfusion he can feel and move his toes well he states it feels a bit better. At this point Dr. Lira and I have evaluated overall situation feel that attempt at thrombolyzes or thrombectomy probably is a greater risk than potential benefit. We should continue with basically elevation of his leg and anticoagulation to try to allow for natural thrombolyzes as much as possible. It certainly may be reasonable to reconsider thrombolyzes after his renal function improves as that may help decrease the long-term sequelae of an extensive deep vein thrombosis
[2016-11-14] MEDS: HEPARIN DRIP 25,000 UNITS/500 ML PREMIX IV SCH ×2 (09:22→18:17)
[2016-11-14] MEDS: AMIODARONE 200 MG TABLET PO SCH (09:23)
[2016-11-14] MEDS: PANTOPRAZOLE 40 MG TABLET PO SCH (09:23)
[2016-11-14] MEDS: ASPIRIN EC 325 MG TABLET PO SCH (09:23)
--- NOTE | 2016-11-14 09:25 | Nephrology Progress Note ---
Nephrology - PN: Subj Interval history: Mr. Walker is seen in follow-up of his acute renal failure on chronic renal failure. He is improved significantly with creatinine now 4.4 down from yesterday's value of 6.6. His urine output is good. He is currently anticoagulated with heparin. I expect his renal function to continue to improve. He is having no bleeding with his anticoagulation. He is comfortable with a clear chest and edema in the right leg remains unchanged. Exam (PN)-Nephrology - Vital Signs Vital signs: Period Temp Pulse Resp BP Sys/Baker Pulse Ox Last 24 Hr 96.9 F-97.9 F 56-77 9-20 87-153/56-89 95-100 - Lab 11/14/16 01:18 11/14/16 01:18 Most recent lab results Calcium 8.4 MG/DL (8.5-10.1) L 11/14/16 01:18 Magnesium 2.4 MG/DL (1.8-2.4) 11/14/16 01:18 Assessment and Plan (1) Pulmonary embolism Status: Acute Current Visit: Yes
--- NOTE | 2016-11-14 09:49 | Cardiology Progress Note ---
Assessment and Plan (1) Pulmonary embolism Status: Acute Assessment and plan: 46-year-old black male, with extensive DVT/PE, readmitted with worsening hemodynamics, chest pain, suspect more extensive PE, worsening DVT finding, suspected IVC filter thrombosis, severe acute kidney injury, suspected renal vein thrombosis. -So far, no issues with heparin drip.. PTT was elevated, now around 40. No bleeding issues. Continue with close monitoring. -Continue aspirin -Continue amiodarone, had atrial fibrillation, difficult to control heart rate on prior admission. -Elevated digoxin level. He had some urine output now, creatinine decreased. No indication for antibodies. -Continue pain management, oxygen support -If remains stable, may transfer him to telemetry soon Current Visit: Yes Cardiology - PN: Subj Interval history: He does not have any chest pain or shortness of breath at rest. The leg is still quite considerably swollen. Hemodynamically stable. Oxygenating well. Heparin drip was started last night, without any active bleeding. PTT was very high, protocol is followed. Exam (Progress Note) - Constitutional Vitals: Period Temp Pulse Resp BP Sys/Baker Pulse Ox Last 24 Hr 96.9 F-97.9 F 56-77 9-20 87-153/56-89 95-100 General appearance: no acute distress, morbidly obese - Head Head exam: Present: normal inspection. Absent: contusion - Eye Eye exam: Absent: periorbital swelling, scleral icterus Pupils: Absent: dilated - ENT ENT exam: Present: normal external ear exam - Neck Neck exam: Present: normal inspection - Respiratory Respiratory exam: Present: clear to auscultation bilaterally. Absent: chest wall tenderness - Cardiovascular Cardiovascular exam: Present: regular rate and rhythm, systolic murmur, tachycardia. Absent: JVD - GI/Abdominal GI/Abdominal exam: Present: normal bowel sounds. Absent: distended - Extremities Exam Extremities exam: Present: normal capillary refill, other (Swollen right lower extremity, pitting edema). Absent: edema - Back Exam Back exam: Present: normal inspection - Neurological Exam Neurological exam: Present: alert, oriented X3 - Psychiatric Psychiatric exam: Present: normal affect, normal mood - Skin Skin exam: Present: normal color, warm. Absent: cyanosis Result/EKG - Labs CBC & BMP: 11/14/16 01:18 11/14/16 01:18 Lab Results: I have reviewed the past 24 hour labs Labs: Laboratory Results - last 24 hr 11/13/16 11/13/16 11/14/16 12:52 17:39 01:18 WBC 7.8 D RBC 3.18 L Hgb 9.2 L Hct 27.3 L MCV 85.8 L MCH 29 MCHC 33.7 RDW 14.7 Plt Count 98 L MPV 9.8 Neut % (Auto) 70.3 Lymph % (Auto) 13.7 L [place] % (Auto) 14.0 H Eos % (Auto) 0.8 Baso % (Auto) 0.0 Neut # (Auto) 5.5 Lymph # (Auto) 1.1 L [place] # (Auto) 1.1 H Eos # (Auto) 0.1 Baso # (Auto) 0.0 Immature Gran % 1.2 Nucleated RBC % 0.0 Immature Gran # 0.09 Nucleated RBCs # 0.00 Platelet Estimate Adequate Immature Plt Fraction 3.1 Anisocytosis Ovalocytes 1+ INR PT Patient/Control Mix Circ Anticoag PTT 27.2 96.6 H D Sodium Potassium Chloride Carbon Dioxide Anion Gap BUN Creatinine GFR Calculation BUN/Creatinine Ratio Glucose Calculated Osmolality Calcium Magnesium 11/14/16 11/14/16 11/14/16 01:18 01:18 04:58 WBC RBC Hgb Hct MCV MCH MCHC RDW Plt Count MPV Neut % (Auto) Lymph % (Auto) [place] % (Auto) Eos % (Auto) Baso % (Auto) Neut # (Auto) Lymph # (Auto) [place] # (Auto) Eos # (Auto) Baso # (Auto) Immature Gran % Nucleated RBC % Immature Gran # Nucleated RBCs # Platelet Estimate Immature Plt Fraction Anisocytosis Ovalocytes INR 2.6 PT Patient/Control Mix 27.8 Circ Anticoag PTT 182.3 H* D 40.8 H Sodium 134 L Potassium 4.3 Chloride 102 Carbon Dioxide 22 Anion Gap 14.3 BUN 93 H Creatinine 4.20 H GFR Calculation 21 BUN/Creatinine Ratio 22.00 H Glucose 88 Calculated Osmolality 295.2 Calcium 8.4 L Magnesium 2.4 11/14/16 06:15 WBC RBC Hgb Hct MCV MCH MCHC RDW Plt Count MPV Neut % (Auto) Lymph % (Auto) [place] % (Auto) Eos % (Auto) Baso % (Auto) Neut # (Auto) Lymph # (Auto) [place] # (Auto) Eos # (Auto) Baso # (Auto) Immature Gran % Nucleated RBC % Immature Gran # Nucleated RBCs # Platelet Estimate Immature Plt Fraction Anisocytosis Ovalocytes INR PT Patient/Control Mix Circ Anticoag PTT 40.3 H Sodium Potassium Chloride Carbon Dioxide Anion Gap BUN Creatinine GFR Calculation BUN/Creatinine Ratio Glucose Calculated Osmolality Calcium Magnesium - EKG EKG results: interpreted by me Quality Measures - VTE Contraindication to Pharmacological VTE Prophylaxis: High Risk of Bleeding Contraindication to Mechanical VTE Prophylaxis: Current Diagnosis of DVT
--- NOTE | 2016-11-14 15:44 | Event Note ---
Case reviewed with Joel Delgado Robbins and Barbara. I have little to add. If TPA is elected as an option for treatment, then recommend lysis of the pulmonary arteries as opposed to the right leg. Patient is at much higher risk for fatal outcome due to right heart failure than a swollen right leg. Call with questions.
[2016-11-15] MEDS: tiZANidine 4 MG TABLET PO SCH ×5 (01:04→18:31)
[2016-11-15] MEDS: SODIUM CHLORIDE 0.9% 1,000 ML IV SCH (03:15)
[2016-11-15 04:49] LABS: Basophils % 0.2 % (0.0-0.8); Eosinophils # 0.1 10*3/uL (0.0-0.87); Eosinophils % 0.9 % (0.00-10.9); Hematocrit 26.4 VOL% (42.0-52.0); Hemoglobin 8.6 GM/DL (14.0-18.0); Immature Granulocytes % 1.4 %; Immature Granulocytes Absolute 0.09 #; Lymphocytes # 1.1 10*3/uL (1.4-4.0); Lymphocytes % 17.7 % (21.2-54.2); Mean Corpuscular HGB Conc 32.6 GM/DL (32-36); Mean Corpuscular Hemoglobin 28 PG (27-34); Mean Corpuscular Volume 86.8 FL (87-102); Mean Platelet Volume 9.9 FL (9.6-12.0); Monocytes # 0.9 10*3/uL (0.11-0.8); Monocytes % 14.5 % (1.7-12.7); Neutrophils # 4.2 10*3/uL (1.4-7.4); Neutrophils % 65.3 % (38.7-73.9); Platelet Count 148 T/CUMM (130-400); Red Blood Count 3.04 MC/CUMM (3.8-5.5); Red Cell Distribution Width 15.4 % (9.3-17.3); White Blood Count 6.4 T/CUMM (4-12)
[2016-11-15 05:17] LABS: INR 2.7
[2016-11-15 05:22] LABS: Calcium 8.8 MG/DL (8.5-10.1); Magnesium 2.4 MG/DL (1.8-2.4)
[2016-11-15 05:23] LABS: Osmolality,Calculated 292.5 MOS/KG (273-304); Potassium 4.6 MMOL/L (3.5-5.1)
[2016-11-15 05:49] LABS: PT Patient Result 27.6 SECS; Partial Thromboplastin Time 77.6 SECS (0-40)
[2016-11-15] MEDS: LEVOTHYROXINE 100 MCG TABLET PO SCH (06:14)
[2016-11-15] MEDS: HEPARIN DRIP 25,000 UNITS/500 ML PREMIX IV SCH (06:15)
--- NOTE | 2016-11-15 08:35 | Cardiology Progress Note ---
Assessment and Plan (1) Pulmonary embolism Status: Acute Assessment and plan: 46-year-old black male, with extensive DVT/PE, readmitted with worsening hemodynamics, chest pain, suspect more extensive PE, worsening DVT finding, suspected IVC filter thrombosis, severe acute kidney injury, suspected renal vein thrombosis. -Extensive RLE DVT, PE. Continue heparin drip with PTT monitoring. No signs of active bleeding.Continue with close monitoring. -If has no issues with heparinization, we may transfer him to a p.o. agent. 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 Baseline high INR, with normal baseline PTT, without prior major breathing problems. -Continue full-strength aspirin -Continue amiodarone, had atrial fibrillation, was difficult to control heart rate on prior admission. He is at risk for complications from right ventricular strain -Hemodynamics improved. Stop IV fluids. I suspect crit was trending down due to hemodilution. Continue monitor closely. -ABIGAIL. Elevated digoxin level. Continue to hold now. If renal function normalizes, may resume after level is rechecked. This may help with right ventricular inotropic support -Continue pain management, oxygen -Continue Synthroid for hypothyroidism, this was quite pronounced, will need to follow as an outpatient -Nonobstructive CAD. Hold statin for now, until risk for myopathy decreases, still has a tense edema in his right lower extremity. We may also add beta- juan antonio soon -Can be moved to telemetry today Current Visit: Yes Cardiology - PN: Subj Interval history: He is feeling better, the chest pain persists, but he stopped. No shortness of breath assess. The right lower extremity is still quite swollen, skin is tense , no breaks, nontender. Telemetry sinus rhythm/tachycardia, no significant arrhythmia. Hematocrit trended down a bit he still getting IV fluids Exam (Progress Note) - Constitutional Vitals: Period Temp Pulse Resp BP Sys/Baker Pulse Ox Last 24 Hr 97.2 F-98.1 F 58-86 11-23 101-167/59-89 99-100 General appearance: no acute distress, morbidly obese - Head Head exam: Present: normal inspection. Absent: contusion - Eye Eye exam: Absent: periorbital swelling, scleral icterus Pupils: Absent: dilated - ENT ENT exam: Present: normal external ear exam - Neck Neck exam: Present: normal inspection - Respiratory Respiratory exam: Present: clear to auscultation bilaterally. Absent: chest wall tenderness - Cardiovascular Cardiovascular exam: Present: regular rate and rhythm, systolic murmur. Absent : JVD - GI/Abdominal GI/Abdominal exam: Present: normal bowel sounds. Absent: distended - Extremities Exam Extremities exam: Present: other (4+ edema of the right lower extremity, tense skin, normal color, warm) - Back Exam Back exam: Present: normal inspection - Neurological Exam Neurological exam: Present: alert, oriented X3 - Psychiatric Psychiatric exam: Present: normal affect, normal mood - Skin Skin exam: Present: normal color, warm. Absent: cyanosis Result/EKG - Labs CBC & BMP: 11/15/16 04:29 11/15/16 04:29 Lab Results: I have reviewed the past 24 hour labs Labs: Laboratory Results - last 24 hr 11/14/16 11/14/16 11/15/16 11:43 18:33 00:52 WBC RBC Hgb Hct MCV MCH MCHC RDW Plt Count MPV Neut % (Auto) Lymph % (Auto) [place] % (Auto) Eos % (Auto) Baso % (Auto) Neut # (Auto) Lymph # (Auto) [place] # (Auto) Eos # (Auto) Baso # (Auto) Immature Gran % Nucleated RBC % Immature Gran # Nucleated RBCs # Immature Plt Fraction INR PT Patient/Control Mix Circ Anticoag PTT 73.1 H D 88.5 H D 72.1 H Sodium Potassium Chloride Carbon Dioxide Anion Gap BUN Creatinine GFR Calculation BUN/Creatinine Ratio Glucose Calculated Osmolality Calcium Magnesium 11/15/16 11/15/16 11/15/16 04:29 04:29 04:29 WBC 6.4 RBC 3.04 L Hgb 8.6 L Hct 26.4 L MCV 86.8 L MCH 28 MCHC 32.6 RDW 15.4 Plt Count 148 D MPV 9.9 Neut % (Auto) 65.3 Lymph % (Auto) 17.7 L [place] % (Auto) 14.5 H Eos % (Auto) 0.9 Baso % (Auto) 0.2 Neut # (Auto) 4.2 Lymph # (Auto) 1.1 L [place] # (Auto) 0.9 H Eos # (Auto) 0.1 Baso # (Auto) 0.0 Immature Gran % 1.4 Nucleated RBC % 0.0 Immature Gran # 0.09 Nucleated RBCs # 0.00 Immature Plt Fraction 0.0 INR 2.7 PT Patient/Control Mix 27.6 Circ Anticoag PTT 77.6 H Sodium 139 Potassium 4.6 Chloride 108 H Carbon Dioxide 21 Anion Gap 14.6 BUN 56 H Creatinine 2.00 H GFR Calculation 53 BUN/Creatinine Ratio 28.00 H Glucose 90 Calculated Osmolality 292.5 Calcium 8.8 Magnesium 2.4 - EKG EKG results: interpreted by ia Quality Measures - VTE Contraindication to Pharmacological VTE Prophylaxis: High Risk of Bleeding Contraindication to Mechanical VTE Prophylaxis: Current Diagnosis of DVT
[2016-11-15] MEDS: AMIODARONE 200 MG TABLET PO SCH (09:19)
[2016-11-15] MEDS: ASPIRIN EC 325 MG TABLET PO SCH (09:20)
[2016-11-15] MEDS: PANTOPRAZOLE 40 MG TABLET PO SCH (09:20)
--- NOTE | 2016-11-15 10:15 | Hematology Progress Note ---
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 Walker seems to be doing well. He does not appear to have any bleeding from his heparinization. He is being transferred to the floor today. I do not think there is any evidence to back what agent will be better suited in his situation. My personal opinion would be to use either Eliquis or Xarelto. Again as mentioned earlier, that is a personal opinion and not a expert opinion as I have never dealt with factor VII deficiency before. Once he is discharged he will need follow-up in [place] for outpatient care. He has [place] Medicaid only so we are not able to follow him here locally. He does not truly need a cotton ball machine tender to follow his blood thinner and can be easily done by primary care physician. If hematology follow-up is desired, the closest location will be in [place]. Exam - Constitutional Vitals: Period Temp Pulse Resp BP Sys/Baker Pulse Ox Last 24 Hr 97.2 F-98.1 F 58-86 11-23 101-167/59-89 99-100 Results - Labs CBC & BMP: 11/15/16 04:29 11/15/16 04:29 Lab Results: I have reviewed the past 24 hour labs Quality Measures - VTE Contraindication to Pharmacological VTE Prophylaxis: High Risk of Bleeding Contraindication to Mechanical VTE Prophylaxis: Current Diagnosis of DVT
--- NOTE | 2016-11-15 10:22 | Nephrology Progress Note ---
Nephrology - PN: Subj Interval history: He denies chest pain or shortness of breath today. He states he feels better overall. Exam (PN)-Nephrology - Vital Signs Vital signs: Period Temp Pulse Resp BP Sys/Baker Pulse Ox Last 24 Hr 97.2 F-98.1 F 58-86 11-23 101-167/59-89 99-100 Exam: ENT: Normal Cardiovascular: Regular rate and rhythm. No murmur rub or gallop Lungs: Clear Extremities: 2+ edema - Lab 11/15/16 04:29 11/15/16 04:29 Most recent lab results Calcium 8.8 MG/DL (8.5-10.1) 11/15/16 04:29 Magnesium 2.4 MG/DL (1.8-2.4) 11/15/16 04:29 Assessment and Plan (1) ARF (acute renal failure) Status: Acute Assessment and plan: 46-year-old man with: * ARF. Renal function improving. Urine output adequate * DVT * PE * Factor VII deficiency Current Visit: Yes (2) Acute DVT (deep venous thrombosis) Problem details: This is a rare case with potential for disastrous complications related to anticoagulation or catheter directed therapy but this is unknown at this point Status: Acute Current Visit: Yes (3) Acute pulmonary embolus Status: Acute Current Visit: Yes (4) Factor VII deficiency Status: Acute Current Visit: Yes
[2016-11-15] MEDS: ONDANSETRON 4 MG/2 ML VIAL IV PRN ×2 (12:38→17:05)
[2016-11-15] MEDS: MORPHINE 2 MG/1 ML SYRINGE IV PRN (20:35)
[2016-11-16] MEDS: tiZANidine 4 MG TABLET PO SCH ×4 (01:07→19:00)
[2016-11-16] MEDS: HEPARIN DRIP 25,000 UNITS/500 ML PREMIX IV SCH (04:52)
[2016-11-16 05:00] LABS: Hematocrit 26.1 VOL% (42.0-52.0); Hemoglobin 8.6 GM/DL (14.0-18.0); Mean Corpuscular Hemoglobin 29 PG (27-34); Mean Corpuscular Volume 87.3 FL (87-102); Mean Platelet Volume 9.7 FL (9.6-12.0); Platelet Count 190 T/CUMM (130-400); Red Blood Count 2.99 MC/CUMM (3.8-5.5); Red Cell Distribution Width 15.5 % (9.3-17.3); White Blood Count 7.4 T/CUMM (4-12)
[2016-11-16 05:01] LABS: Basophils % 0.4 % (0.0-0.8); Eosinophils # 0.1 10*3/uL (0.0-0.87); Eosinophils % 1.6 % (0.00-10.9); Immature Granulocytes Absolute 0.15 #; Lymphocytes # 1.7 10*3/uL (1.4-4.0); Lymphocytes % 22.8 % (21.2-54.2); Monocytes # 1.1 10*3/uL (0.11-0.8); Monocytes % 14.2 % (1.7-12.7); Neutrophils # 4.4 10*3/uL (1.4-7.4)
[2016-11-16 05:15] LABS: INR 3.1
[2016-11-16 05:16] LABS: PT Patient Result 31.1 SECS; Partial Thromboplastin Time 58.3 SECS (0-40)
[2016-11-16 05:27] LABS: Calcium 8.9 MG/DL (8.5-10.1); Magnesium 2.1 MG/DL (1.8-2.4); Osmolality,Calculated 282.5 MOS/KG (273-304); Potassium 4.9 MMOL/L (3.5-5.1)
[2016-11-16] MEDS: LEVOTHYROXINE 100 MCG TABLET PO SCH (06:42)
[2016-11-16] MEDS: ASPIRIN EC 325 MG TABLET PO SCH (08:17)
[2016-11-16] MEDS: PANTOPRAZOLE 40 MG TABLET PO SCH (08:18)
[2016-11-16] MEDS: AMIODARONE 200 MG TABLET PO SCH (08:18)
--- NOTE | 2016-11-16 09:00 | Cardiology Progress Note ---
Assessment and Plan (1) Pulmonary embolism Status: Acute Assessment and plan: 46-year-old black male, with extensive DVT/PE, readmitted with worsening hemodynamics, chest pain, suspect more extensive PE, worsening DVT finding, suspected IVC filter thrombosis, severe acute kidney injury, suspected renal vein thrombosis. -Extensive RLE DVT, PE. Switch heparin drip to Eliquis 5 mg twice daily. Appreciate hematology input. Continue to monitor closely for bleeding, no issues so far. -Continue full-strength aspirin -Continue amiodarone, had atrial fibrillation, was difficult to control heart rate on prior admission. He is at risk for complications from right ventricular strain. -Digoxin was stopped, due to elevated liver, acute kidney injury on admission, renal function improved. As he is hemodynamically stable, has mild SB and not symptomatic from RV dysfunction, I would not resume digoxin at this time -Hemodynamics improved. Stopped IV fluids. I suspect crit was trending down due to hemodilution. Continue monitor closely. -Continue pain management, oxygen -Continue Synthroid for hypothyroidism, this was quite pronounced, will need to follow as an outpatient -Nonobstructive CAD. Hold statin for now, until risk for myopathy decreases, still has a tense edema in his right lower extremity. We may also add beta- juan antonio soon, athough had a bit more bradycardia today. Keep on telemetry -Case management consult. He lives in [place], he will need close follow-up to prevent relapse and monitoring of his high risk treatment. I anticipate he may be ready for discharge or downgrade in level of care in a day or 2, will get PT evaluation. Current Visit: Yes Cardiology - PN: Subj Interval history: He is feeling comfortable at rest. Appetite good. Chest pain resolved, no shortness of breath, oxygenating well. The right lower extremity is still quite swollen, the skin is less tense. Renal function improving, blood pressure is well controlled. No bleeding issues with heparin drip. Exam (Progress Note) - Constitutional Vitals: Period Temp Pulse Resp BP Sys/Baker Pulse Ox Last 24 Hr 97.7 F-98.9 F 58-80 15-20 118-148/54-83 95-100 General appearance: no acute distress, morbidly obese - Head Head exam: Present: normal inspection. Absent: contusion - Eye Eye exam: Absent: periorbital swelling, scleral icterus Pupils: Absent: dilated - ENT ENT exam: Present: normal external ear exam - Neck Neck exam: Present: normal inspection - Respiratory Respiratory exam: Present: clear to auscultation bilaterally. Absent: chest wall tenderness - Cardiovascular Cardiovascular exam: Present: regular rate and rhythm, systolic murmur. Absent : JVD, tachycardia - GI/Abdominal GI/Abdominal exam: Present: normal bowel sounds. Absent: distended - Extremities Exam Extremities exam: Present: normal inspection, normal capillary refill, other (3 + edema in the right lower extremity, no cyanosis pain improved). Absent: edema - Back Exam Back exam: Present: normal inspection - Neurological Exam Neurological exam: Present: alert, oriented X3 - Psychiatric Psychiatric exam: Present: normal affect, normal mood - Skin Skin exam: Present: normal color, warm. Absent: cyanosis Result/EKG - Labs CBC & BMP: 11/16/16 04:32 11/16/16 04:32 Lab Results: I have reviewed the past 24 hour labs Labs: Laboratory Results - last 24 hr 11/16/16 11/16/16 11/16/16 04:32 04:32 04:32 WBC 7.4 RBC 2.99 L Hgb 8.6 L Hct 26.1 L MCV 87.3 MCH 29 MCHC 33.0 RDW 15.5 Plt Count 190 D MPV 9.7 Neut % (Auto) 59.0 Lymph % (Auto) 22.8 [place] % (Auto) 14.2 H Eos % (Auto) 1.6 Baso % (Auto) 0.4 Neut # (Auto) 4.4 Lymph # (Auto) 1.7 [place] # (Auto) 1.1 H Eos # (Auto) 0.1 Baso # (Auto) 0.0 Immature Gran % 2.0 Nucleated RBC % 0.0 Immature Gran # 0.15 Nucleated RBCs # 0.00 Immature Plt Fraction 0.0 INR 3.1 PT Patient/Control Mix 31.1 Circ Anticoag PTT 58.3 H D Sodium 139 Potassium 4.9 Chloride 107 Carbon Dioxide 24 Anion Gap 12.9 BUN 33 H Creatinine 1.50 H GFR Calculation 75 BUN/Creatinine Ratio 22.00 H Glucose 85 Calculated Osmolality 282.5 Calcium 8.9 Magnesium 2.1 - EKG EKG results: interpreted by me Quality Measures - VTE Contraindication to Pharmacological VTE Prophylaxis: High Risk of Bleeding Contraindication to Mechanical VTE Prophylaxis: Current Diagnosis of DVT
[2016-11-16] MEDS: ONDANSETRON 4 MG/2 ML VIAL IV PRN ×2 (09:04→12:45)
[2016-11-16] MEDS: APIXABAN 5 MG TABLET PO SCH ×2 (09:16→21:13)
[2016-11-16] MEDS: MORPHINE 2 MG/1 ML SYRINGE IV PRN ×2 (12:23→21:13)
--- NOTE | 2016-11-16 12:40 | Nephrology Progress Note ---
Nephrology - PN: Subj Interval history: He complains of nausea after eating. No shortness of breath. No new symptoms Exam (PN)-Nephrology - Vital Signs Vital signs: Period Temp Pulse Resp BP Sys/Baker Pulse Ox Last 24 Hr 97.7 F-98.9 F 61-68 15-20 118-149/54-81 95-98 Exam: ENT: Normal Cardiovascular: Regular rate and rhythm. No murmur rub or gallop Lungs: Clear Extremities: 2+ edema - Lab 11/16/16 04:32 11/16/16 04:32 Most recent lab results Calcium 8.9 MG/DL (8.5-10.1) 11/16/16 04:32 Magnesium 2.1 MG/DL (1.8-2.4) 11/16/16 04:32 Assessment and Plan (1) ARF (acute renal failure) Status: Acute Assessment and plan: 46-year-old man with: * ARF. Renal function continues to improve * DVT * PE * Factor VII deficiency Current Visit: Yes (2) Acute DVT (deep venous thrombosis) Problem details: This is a rare case with potential for disastrous complications related to anticoagulation or catheter directed therapy but this is unknown at this point Status: Acute Current Visit: Yes (3) Acute pulmonary embolus Status: Acute Current Visit: Yes (4) Factor VII deficiency Status: Acute Current Visit: Yes
[2016-11-17] MEDS: tiZANidine 4 MG TABLET PO SCH ×4 (01:24→17:46)
[2016-11-17 05:39] LABS: Basophils % 0.4 % (0.0-0.8); Eosinophils # 0.2 10*3/uL (0.0-0.87); Hemoglobin 8.9 GM/DL (14.0-18.0); Immature Granulocytes % 1.3 %; Lymphocytes # 1.5 10*3/uL (1.4-4.0); Lymphocytes % 18.8 % (21.2-54.2); Mean Corpuscular Hemoglobin 29 PG (27-34); Mean Corpuscular Volume 87.7 FL (87-102); Mean Platelet Volume 10.1 FL (9.6-12.0); Monocytes # 1.1 10*3/uL (0.11-0.8); Monocytes % 13.6 % (1.7-12.7); Neutrophils % 63.9 % (38.7-73.9); Platelet Count 226 T/CUMM (130-400); Red Blood Count 3.08 MC/CUMM (3.8-5.5); Red Cell Distribution Width 15.6 % (9.3-17.3); White Blood Count 7.9 T/CUMM (4-12)
[2016-11-17 05:47] LABS: Partial Thromboplastin Time 26.5 SECS (0-40)
[2016-11-17 05:52] LABS: INR 3.3; PT Patient Result 33.7 SECS
[2016-11-17 06:14] LABS: Calcium 9.5 MG/DL (8.5-10.1); Magnesium 1.7 MG/DL (1.8-2.4); Osmolality,Calculated 279.5 MOS/KG (273-304); Potassium 4.9 MMOL/L (3.5-5.1)
[2016-11-17] MEDS: LEVOTHYROXINE 100 MCG TABLET PO SCH (06:36)
--- NOTE | 2016-11-17 07:37 | Cardiology Progress Note ---
Cardiology - PN: Subj Interval history: Cardiology note Complicated patient admitted with syncope and acute renal failure Status post extensive right leg DVT and pulmonary embolus October 30, 2016. Factor VII deficiency. Patient is now taking Eliquis 5 mg twice daily Nonobstructive CAD Paroxysmal atrial fib converted with amiodarone Hypothyroid Status post IVC filter October 29 Echo showed ejection fraction of 25-30% with dilated right ventricle Acute renal failure on this admission creatinine was around 7 now down to 1.30 Telemetry shows steady sinus rhythm in the 70s Blood pressure 120/66 O2 sat 98 on room air Regular rhythm no gallop Decreased breath sounds but fairly clear Abdomen benign Right leg swelling improving per patient. I cannot palpate his distal pulses. Lab data today INR 3.3 hemoglobin 8.9 hematocrit 27.0 White count 7.9 platelet count 226,000 Sodium 139 potassium 4.9 chloride 105 CO2 25 BUN 23 creatinine down to 1.30 Plan Lasix Monitor Eliquis 5 mg twice daily Amiodarone 200 mg daily Begin Coreg 3.125 mg twice daily Exam (Progress Note) - Constitutional Vitals: Period Temp Pulse Resp BP Sys/Baker Pulse Ox Last 24 Hr 96.5 F-98.9 F 46-68 16-20 111-149/51-81 95-98 Result/EKG - Labs CBC & BMP: 11/17/16 04:03 11/17/16 04:03 Labs: Laboratory Results - last 24 hr 11/17/16 11/17/16 11/17/16 04:03 04:03 04:03 WBC 7.9 RBC 3.08 L Hgb 8.9 L Hct 27.0 L MCV 87.7 MCH 29 MCHC 33.0 RDW 15.6 Plt Count 226 MPV 10.1 Neut % (Auto) 63.9 Lymph % (Auto) 18.8 L [place] % (Auto) 13.6 H Eos % (Auto) 2.0 Baso % (Auto) 0.4 Neut # (Auto) 5.0 Lymph # (Auto) 1.5 [place] # (Auto) 1.1 H Eos # (Auto) 0.2 Baso # (Auto) 0.0 Immature Gran % 1.3 Nucleated RBC % 0.0 Immature Gran # 0.10 Nucleated RBCs # 0.00 Immature Plt Fraction 0.0 INR 3.3 PT Patient/Control Mix 33.7 Circ Anticoag PTT 26.5 D Sodium 139 Potassium 4.9 Chloride 105 Carbon Dioxide 25 Anion Gap 13.9 BUN 23 H D Creatinine 1.30 GFR Calculation 89 BUN/Creatinine Ratio 17.00 Glucose 79 Calculated Osmolality 279.5 Calcium 9.5 Magnesium 1.7 L Quality Measures - VTE Contraindication to Pharmacological VTE Prophylaxis: High Risk of Bleeding Contraindication to Mechanical VTE Prophylaxis: Current Diagnosis of DVT
[2016-11-17] MEDS: ONDANSETRON 4 MG/2 ML VIAL IV PRN (08:09)
--- NOTE | 2016-11-17 08:17 | Nephrology Progress Note ---
Nephrology - PN: Subj Interval history: Mr. Walker is seen in follow-up of his acute renal failure. His creatinine is now 1.2 and he is feeling well. His chest is clear. Right leg remains edematous. He is now on Eliquis and off heparin. With his renal failure improvement, we will sign off. Please call if we can help thank you Exam (PN)-Nephrology - Vital Signs Vital signs: Period Temp Pulse Resp BP Sys/Baker Pulse Ox Last 24 Hr 96.5 F-98.5 F 46-68 16-20 111-149/51-81 95-98 - Lab 11/17/16 04:03 11/17/16 04:03 Most recent lab results Calcium 9.5 MG/DL (8.5-10.1) 11/17/16 04:03 Magnesium 1.7 MG/DL (1.8-2.4) L 11/17/16 04:03 Assessment and Plan (1) Pulmonary embolism Status: Acute Current Visit: Yes
[2016-11-17] MEDS: ASPIRIN EC 325 MG TABLET PO SCH (09:02)
[2016-11-17] MEDS: AMIODARONE 200 MG TABLET PO SCH (09:02)
[2016-11-17] MEDS: CARVEDILOL 3.125 MG TABLET PO SCH ×2 (09:03→21:39)
[2016-11-17] MEDS: APIXABAN 5 MG TABLET PO SCH ×2 (09:03→21:39)
[2016-11-17] MEDS: PANTOPRAZOLE 40 MG TABLET PO SCH (09:04)
[2016-11-17] MEDS: MAGNESIUM SULF RIDER 2 GM in PREMIX 1 EACH IV PRN (10:31)
[2016-11-17] MEDS ORDERED: PNEUMOCOCCAL VACCINE (13 VALENT) 0.5 ML SYRINGE IM ONE (20:27)
[2016-11-17] MEDS: ZALEPLON 5 MG CAPSULE PO PRN (21:39)
[2016-11-18] MEDS: tiZANidine 4 MG TABLET PO SCH ×4 (01:04→18:22)
[2016-11-18] MEDS: LEVOTHYROXINE 100 MCG TABLET PO SCH (06:01)
--- NOTE | 2016-11-18 07:46 | Cardiology Progress Note ---
Cardiology - PN: Subj Interval history: Cardiology note 46-year-old man admitted with syncope and acute renal failure. Status post extensive right leg DVT and pulmonary embolus October 30, 2016. Factor VII deficiency. No temperature. Good appetite. Telemetry shows sinus rhythm in the 70s. No further atrial fib. Right leg is still swollen but improving. Patient is unsteady on his feet. Blood pressure 130/76 Regular rhythm no murmur or gallop Decreased breath sounds but fairly clear Abdomen benign Right leg edema improving. Impression Status post extensive right leg DVT and pulmonary embolus October 29, 2016. Factor VII deficiency. Nonobstructive CAD. Paroxysmal atrial fib converted with amiodarone Hypothyroid Status post IVC filter October 29 Echo showed ejection fraction 25-30% with dilated right ventricle Acute renal failure on this admission creatinine was 7 now down to 1.3 Plan Eliquis 5 mg twice daily Amiodarone 200 mg daily Lasix 40 mg daily Increase Coreg 6.25 mg twice daily Physical therapy for gait training/walker BMP a.m. Exam (Progress Note) - Constitutional Vitals: Period Temp Pulse Resp BP Sys/Baker Pulse Ox Last 24 Hr 97.5 F-98.2 F 55-88 17-20 105-134/58-66 96-99 Result/EKG - Labs CBC & BMP: 11/17/16 04:03 11/17/16 04:03 Quality Measures - VTE Contraindication to Pharmacological VTE Prophylaxis: High Risk of Bleeding Contraindication to Mechanical VTE Prophylaxis: Current Diagnosis of DVT
[2016-11-18] MEDS: CARVEDILOL 6.25 MG TABLET PO SCH ×2 (08:15→21:11)
[2016-11-18] MEDS: PANTOPRAZOLE 40 MG TABLET PO SCH (08:15)
[2016-11-18] MEDS: FUROSEMIDE 40 MG TABLET PO SCH (08:15)
[2016-11-18] MEDS: APIXABAN 5 MG TABLET PO SCH ×2 (08:15→21:11)
[2016-11-18] MEDS: AMIODARONE 200 MG TABLET PO SCH (08:15)
[2016-11-18] MEDS: ASPIRIN EC 325 MG TABLET PO SCH (08:15)
--- NOTE | 2016-11-18 08:48 | Event Note ---
Mr. Walker does show significant improvement in the edema and tightness of his right leg he states it feels much more comfortable. I do not feel at this stage we need to entertain thrombolyzes for mechanical thrombectomy although he is at a long-term risk for significant postphlebitic syndrome. I will be available but will basically sign off at this time
[2016-11-18] MEDS: ONDANSETRON 4 MG/2 ML VIAL IV PRN (17:15)
[2016-11-18] MEDS: ZALEPLON 5 MG CAPSULE PO PRN (21:11)
[2016-11-19] MEDS: tiZANidine 4 MG TABLET PO SCH ×3 (01:35→08:46)
[2016-11-19 05:07] LABS: Basophils % 0.4 % (0.0-0.8); Eosinophils # 0.2 10*3/uL (0.0-0.87); Eosinophils % 2.1 % (0.00-10.9); Hematocrit 27.6 VOL% (42.0-52.0); Immature Granulocytes % 1.3 %; Immature Granulocytes Absolute 0.11 #; Lymphocytes # 1.4 10*3/uL (1.4-4.0); Lymphocytes % 16.6 % (21.2-54.2); Mean Corpuscular HGB Conc 32.6 GM/DL (32-36); Mean Corpuscular Hemoglobin 29 PG (27-34); Mean Corpuscular Volume 89.6 FL (87-102); Mean Platelet Volume 9.8 FL (9.6-12.0); Monocytes % 11.1 % (1.7-12.7); Neutrophils # 5.9 10*3/uL (1.4-7.4); Neutrophils % 68.5 % (38.7-73.9); Platelet Count 277 T/CUMM (130-400); Red Blood Count 3.08 MC/CUMM (3.8-5.5); Red Cell Distribution Width 15.9 % (9.3-17.3); White Blood Count 8.6 T/CUMM (4-12)
[2016-11-19 06:01] LABS: Magnesium 1.6 MG/DL (1.8-2.4); Osmolality,Calculated 275.7 MOS/KG (273-304); Potassium 4.6 MMOL/L (3.5-5.1)
[2016-11-19] MEDS: LEVOTHYROXINE 100 MCG TABLET PO SCH (06:07)
--- NOTE | 2016-11-19 08:31 | Cardiology Progress Note ---
Cardiology - PN: Subj Interval history: Cardiology note 46-year-old man admitted with syncope and acute renal failure which has resolved. Status post extensive right leg DVT and pulmonary embolus October 30, 2016 Factor VII deficiency. Right leg swelling is improving. It is less intense. Patient is walking with physical therapy with his cane. O2 sat 95% on room air. Blood pressure 126/80 Telemetry shows steady sinus rhythm Regular rhythm no murmur or gallop Decreased breath sounds but clear Abdomen nontender Right leg edema continues to improve Impression Status post extensive right leg DVT and pulmonary embolus October 29, 2016 Factor VII deficiency Nonobstructive CAD Paroxysmal atrial fib converted with amiodarone Hypothyroid Status post IVC filter October 29, 2016 Echo showed ejection fraction 25-30% with dilated right ventricle Acute renal failure creatinine 7 on admission resolved Lab data today Sodium 138 potassium 4.6 chloride 104 CO2 28 BUN 19 creatinine 1.20 White count 8.6 hemoglobin 9.0 hematocrit 27.6 Plan Home today. The patient lives in [facility] [place] with his girlfriend. Local physician is Dr. Bernice Cristina. I will visit in 1 week with CBC and BMP Continue Eliquis 5 mg twice daily Continue amiodarone 200 mg daily Continue Lasix 40 mg daily Continue Coreg 6.25 g twice daily Begin lisinopril 5 mg daily Home health to visit patient Exam (Progress Note) - Constitutional Vitals: Period Temp Pulse Resp BP Sys/Baker Pulse Ox Last 24 Hr 97.5 F-98.3 F 50-76 18-20 107-137/58-76 94-99 Result/EKG - Labs CBC & BMP: 11/19/16 03:48 11/19/16 03:48 Labs: Laboratory Results - last 24 hr 11/19/16 11/19/16 03:48 03:48 WBC 8.6 RBC 3.08 L Hgb 9.0 L Hct 27.6 L MCV 89.6 MCH 29 MCHC 32.6 RDW 15.9 Plt Count 277 D MPV 9.8 Neut % (Auto) 68.5 Lymph % (Auto) 16.6 L [place] % (Auto) 11.1 Eos % (Auto) 2.1 Baso % (Auto) 0.4 Neut # (Auto) 5.9 Lymph # (Auto) 1.4 [place] # (Auto) 1.0 H Eos # (Auto) 0.2 Baso # (Auto) 0.0 Immature Gran % 1.3 Nucleated RBC % 0.0 Immature Gran # 0.11 Nucleated RBCs # 0.00 Immature Plt Fraction 0.0 Sodium 138 Potassium 4.6 Chloride 104 Carbon Dioxide 28 Anion Gap 10.6 BUN 19 H Creatinine 1.20 GFR Calculation 98 BUN/Creatinine Ratio 15.00 Glucose 78 Calculated Osmolality 275.7 Calcium 9.0 Magnesium 1.6 L Quality Measures - VTE Contraindication to Pharmacological VTE Prophylaxis: High Risk of Bleeding Contraindication to Mechanical VTE Prophylaxis: Current Diagnosis of DVT
--- NOTE | 2016-11-19 08:37 | Discharge Summary ---
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 Walker is a very pleasant 46-year-old gentleman who resides in [place]. 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 fib and RVR at [facility]. Past medical history includes: Hypertension, hyperlipidemia, hypothyroidism, nonobstructive CAD, obstructive sleep apnea(wears CPAP nightly) and GERD. The patient was given fresh frozen plasma for correction of his coagulopathy and underwent left heart catheterization October 2016. The patient was treated for his A. fib with RVR and was found to have a nonischemic cardiomyopathy, was also found to have an LV thrombus at that time. The patient represented to [facility] late October 2016 with A. fib with RVR rates exceeding 160 bpm. He was then transferred to our facility for the purposes of having an EP evaluation. He was found to have a 100% occluded right pulmonary artery and a approximately 70% occluded left pulmonary artery with thrombus and massive or submassive pulmonary embolism. Venous Dopplers at [facility] revealed DVT to right popliteal vein. Venous Doppler at our facility was performed and revealed no evidence of DVT. Echo revealed EF 25-30%. Hematology was consulted concerning options and recommendations for anticoagulation and potential candidacy for EKOS procedure and thrombolysis given the diagnosis of submassive pulmonary embolism and DVTs. The impression of hematology at that time was that it was likely too risky to proceed with thrombolyzes even at low dose as well as EKOS procedure. Ultimately, the decision was made to hold off on anticoagulation as he remained asymptomatic and for him to undergo an IVC filter placement, interventional radiology placed this filter shortly after admission, October 2016. Dr. Jimenez saw the patient evaluated and recommended antiarrhythmic therapy , patient was loaded with oral amiodarone. Chronic anticoagulation was not started given his factor VII deficiency. He was discharged home November 04, 2016 in stable condition. Patient represented to [facility] November 12, 2016 after having a syncopal episode. He was diagnosed with right lower extremity occlusive thrombus extending from the popliteal through the common femoral veins. Dr. Collins and interventional radiology was consulted to evaluate for possible TPA. It was felt that thrombolyzes or thrombectomy had a greater risk than potential benefit. IV heparin was then initiated. He did well with this and was without evidence of bleeding. Hematology was on board and recommended Eliquis initiation. He has been on Eliquis 5 mg twice daily since November 16, 2016. He has also tolerated this medication well. No overt bleeding noted. Unfortunately, his hospitalization was complicated by acute renal failure. Creatinine 7.0 upon admission. Nephrology was consulted. Renal ultrasound performed and was unremarkable. This is now resolved. Creatinine today 1.2. He will follow-up with nephrology outpatient. Patient's right leg edema continues to improve. Physical therapy has been working with the patient daily. I have consulted case management. Home health with physical therapy will be set up for patient at discharge. Patient has maintained normal sinus rhythm this hospitalization. He will be discharged home with his preadmission dosage of amiodarone. Continue anticoagulation with Eliquis. H&H stable this hospitalization with Eliquis and aspirin. The patient's nonischemic cardiomyopathy. We have initiated lisinopril as patient's renal function has now normalized. Will continue beta-blockade and diuretics at discharge. Patient will have BMP in 1 week. Patient is anxious for discharge home today. He is without shortness of breath. O2 saturations 95-99% on room air. Having felt that he has not maximal medical therapy, he will be discharged home in stable condition. Of note, I have instructed patient to watch for signs of bleeding. If patient has any signs of bleeding I have instructed him to probably return to the emergency department to be further evaluated. He has been given a follow-up appointment with his PCP Dr. Eduardo Cheng in 1 week with CBC and BMP. Patient will also follow-up with Dr. Allen, [facility] in 2 weeks. He will be given a follow-up appointment with nephrology as well. Patient verbalizes understanding of discharge instructions and discharge medications. 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 (4) Presence of IVC filter Status: Chronic (5) Pulmonary embolism Status: Resolved (6) Dyspnea Status: Resolved (7) GERD (gastroesophageal reflux disease) Status: Chronic (8) Nonischemic cardiomyopathy Status: Chronic (9) Paroxysmal a-fib Status: Chronic (10) Acute DVT (deep venous thrombosis) Status: Acute (11) Hypothyroid Status: Chronic (12) Hypertension Status: Chronic Specialty Discharge - Follow Up or Referrals Follow up with: Eduardo Cheng [Primary Care Provider] - 1 Week (with cbc and bmp) Zeeshan Allen MD [Physician] - 2 Weeks Raymond Aldrich MD [Physician] - 1 Month Discharge Plan - Discharge Data Disposition: Disch To Home/Self Care Condition at Discharge: Stable Discharge Diet: heart healthy, low fat, low cholesterol, low salt diet Activity: as per physical therapy Hygiene: no restrictions Weight Bearing at Discharge: weight bear as tolerated Driving: not until seen by doctor Contact your physician if you experience:: fever over 101, Difficulty voiding, Redness or swelling, Nausea/Vomiting, Shortness of breath, Bleeding, pain uncontrolled by pain medications - Discharge Medications New Apixaban [Eliquis] 5 mg PO BID #60 tablet Carvedilol [Coreg] 6.25 mg PO BID #60 tablet Lisinopril [Prinivil] 5 mg PO DAILY #30 tablet Continue Levothyroxine Sodium 100 mcg PO QAM Furosemide Tab [Lasix Tab] 40 mg PO QAM Omeprazole 20 mg PO QAM Amiodarone HCl 200 mg PO QAM Aspirin EC Tab 81 mg PO QAM Oxycodone HCl/Acetaminophen [Oxycodone-Acetaminophen 5-325] 1 tablet PO Q6HR PRN PRN Reason: Pain Discontinued Carvedilol 12.5 mg PO BID Digoxin 250 mcg PO QAM Lisinopril 2.5 mg PO QAM Ibuprofen Tab [Motrin Tab] 800 mg PO Q8H #30 tablet - Follow Up or Referral Follow Up: Eduardo Cheng [Primary Care Provider] - 1 Week (with cbc and bmp) Zeeshan Allen MD [Physician] - 2 Weeks Raymond Aldrich MD [Physician] - 1 Month - Forms/Instructions Exam - Constitutional Vitals: Period Temp Pulse Resp BP Sys/Baker Pulse Ox Last 24 Hr 97.5 F-98.3 F 50-76 18-20 107-137/58-76 94-99 Exam: General: Appears well with no apparent distress. Pleasant and cooperative. Appears comfortable. HEENT: PERRL, normocephalic, atraumatic. Mucous membranes moist. No jaundice noted. Conjunctiva moist and clear, sclerae anicteric Neck: No JVD/HJR, no thyromegaly or lymphadenopathy noted. No carotid bruit appreciated Cardiac: Regular rate and rhythm. Systolic murmur. Lungs: Clear to auscultation without accessory muscle use to assist the respiratory pattern. Not requiring oxygen. Abdomen: Soft, bowel sounds normoactive. Nontender and nondistended. No abdominal bruit or thrill noted. No masses noted. Extremities: No clubbing, cyanosis noted. Chronic, 2+ edema to right lower extremity, improving and less tense. Upper extremity pulses 2+. Weak pulse to right lower extremity. Capillary refill less than 3 seconds. Skin: No unusual lesions or rashes. No skin breakdown appreciated. Neuro: Awake, alert and oriented 3. Moves all extremities except right lower extremely well without hemiparesis or paralysis. No essential tremor is appreciated. Discharge Results Procedures and tests throughout hospitalization: Pending Orders 11/20/16 04:00 BMP w/ Mg [Basic Metabolic Panel w/Mg] IN AM CBC [Comp Blood Count Auto Diff] IN AM 11/21/16 04:00 BMP w/ Mg [Basic Metabolic Panel w/Mg] IN AM CBC [Comp Blood Count Auto Diff] IN AM Labs on day of discharge: Labs from last 24 hours 11/19/16 11/19/16 03:48 03:48 WBC 8.6 RBC 3.08 L Hgb 9.0 L Hct 27.6 L MCV 89.6 MCH 29 MCHC 32.6 RDW 15.9 Plt Count 277 D MPV 9.8 Neut % (Auto) 68.5 Lymph % (Auto) 16.6 L Hoke % (Auto) 11.1 Eos % (Auto) 2.1 Baso % (Auto) 0.4 Neut # (Auto) 5.9 Lymph # (Auto) 1.4 Hoke # (Auto) 1.0 H Eos # (Auto) 0.2 Baso # (Auto) 0.0 Immature Gran % 1.3 Nucleated RBC % 0.0 Immature Gran # 0.11 Nucleated RBCs # 0.00 Immature Plt Fraction 0.0 Sodium 138 Potassium 4.6 Chloride 104 Carbon Dioxide 28 Anion Gap 10.6 BUN 19 H Creatinine 1.20 GFR Calculation 98 BUN/Creatinine Ratio 15.00 Glucose 78 Calculated Osmolality 275.7 Calcium 9.0 Magnesium 1.6 L DS: Provider Date of admission: 11/12/16 19:07 Primary care physician: Eduardo Cheng Attending physician on admission: Chu Jimenez MD Consults: 11/12/16 18:19 Consult to Physician [CONS] Routine Comment: Consulting Provider: Consult to Specialist Group: Surgery When should Consulting Provider be notified: Now Person Notified: Date Notified: 11/12/16 Time Notified: 21:54 Consult Notification Comment: consult in AM 11/12/16 18:20 Consult to Physician [CONS] Routine Comment: Consulting Provider: Kal Maldonado Consulting Provider Notified: Yes Consult to Specialist Group: Hematology When should Consulting Provider be notified: Now Person Notified: Dr. Maldonado Date Notified: 11/13/16 Time Notified: 08:24 11/12/16 18:31 Consult to Physician [CONS] Routine Comment: Consulting Provider: Consult to Specialist Group: Nephrology When should Consulting Provider be notified: Now Person Notified: Date Notified: 11/12/16 Time Notified: 21:58 Consult Notification Comment: will see in AM 11/12/16 20:32 Consult to Pastoral Services [CONS] Routine Comment: Pastoral Screen: Request Governor Assembler Visit Terminal Diagnosis Pastoral Screen Source of Request: Patient 11/13/16 01:17 Consult to Physician [CONS] Routine Comment: Consulting Provider: Gaudencio Collins Consulting Provider Notified: Yes When should Consulting Provider be notified: In am Person Notified: Dr. Collins Date Notified: 11/13/16 Time Notified: 08:27 11/13/16 09:40 Consult to Physician [CONS] Routine Comment: evaluate for possible thrombolysis Consulting Provider: Lenny Lira 11/16/16 09:00 PT [Consult to Physical Therapy] [CONS] Routine Reason for Physical Therapy: Evaluate and Treat 11/16/16 09:01 Consult to Case Mgmt/Social Srvs [CONS] Routine Reason for Case Mgmt/Social Srvs: Discharge Planning 11/19/16 08:27 Consult to Case Mgmt/Social Srvs [CONS] Routine Reason for Case Mgmt/Social Srvs: Discharge Planning Consult Comment: HOME HEALTH PHYSICAL THERAPY Discharging clinician: Lauren Joyce NP Expected date of discharge: 11/19/16
[2016-11-19] MEDS: FUROSEMIDE 40 MG TABLET PO SCH (08:46)
[2016-11-19] MEDS: APIXABAN 5 MG TABLET PO SCH (08:46)
[2016-11-19] MEDS: ASPIRIN EC 325 MG TABLET PO SCH (08:46)
[2016-11-19] MEDS: ONDANSETRON 4 MG/2 ML VIAL IV PRN (08:47)
[2016-11-19] MEDS: PANTOPRAZOLE 40 MG TABLET PO SCH (08:47)
[2016-11-19] MEDS: AMIODARONE 200 MG TABLET PO SCH (08:47)
[2016-11-19] MEDS: CARVEDILOL 6.25 MG TABLET PO SCH (08:47)
[2016-11-19] MEDS: MAGNESIUM SULF RIDER 2 GM in PREMIX 1 EACH IV PRN (08:49)
[2016-11-19] MEDS ORDERED: LISINOPRIL 5 MG TABLET PO SCH (09:30)
[2016-11-19 11:42] VITALS: BP 120/56
== END 2016-11-19 12:36 | disposition home or self-care (01) | DRG 314 ==
LOC: EDUNIT# → EDBD → N.ED 17:01 → N.EDINP 19:07 → N.CC 19:40 → N.TELES 11-15 10:17
PROVIDERS: ADMIT Internal Medicine Clinical Cardiac Electrophysiology; ATTEND Internal Medicine Clinical Cardiac Electrophysiology

== ENCOUNTER 2016-11-26 14:41 | Observation (INO) ==
[2016-11-26] MEDS ORDERED: MAGNESIUM SULF RIDER 2 GM in PREMIX 1 EACH IV PRN (17:35)
[2016-11-26] MEDS ORDERED: MAGNESIUM SULF RIDER 4 GM in PREMIX 1 EACH IV PRN (17:35)
[2016-11-26] MEDS ORDERED: DOCUSATE SODIUM 100 MG CAPSULE PO PRN (17:35)
[2016-11-26] MEDS ORDERED: ZALEPLON 5 MG CAPSULE PO PRN (17:35)
[2016-11-26] MEDS ORDERED: ONDANSETRON 4 MG/2 ML VIAL IV PRN (17:35)
[2016-11-26] MEDS ORDERED: ACETAMINOPHEN 325 MG TABLET PO PRN (17:35)
[2016-11-26] MEDS ORDERED: oxyCODONE/ACETAMINOPHEN 5-325 MG TABLET PO PRN (17:38)
[2016-11-26 18:18] LABS: Basophils % 0.8 % (0.0-0.8); Hematocrit 36.5 VOL% (42.0-52.0); Hemoglobin 11.5 GM/DL (14.0-18.0); Immature Granulocytes % 0.5 %; Immature Granulocytes Absolute 0.02 #; Lymphocytes # 1.1 10*3/uL (1.4-4.0); Lymphocytes % 26.3 % (21.2-54.2); Mean Corpuscular HGB Conc 31.5 GM/DL (32-36); Mean Corpuscular Hemoglobin 28 PG (27-34); Mean Corpuscular Volume 89.7 FL (87-102); Monocytes # 0.4 10*3/uL (0.11-0.8); Neutrophils # 2.5 10*3/uL (1.4-7.4); Neutrophils % 62.4 % (38.7-73.9); Platelet Count 346 T/CUMM (130-400); Red Blood Count 4.07 MC/CUMM (3.8-5.5); Red Cell Distribution Width 15.5 % (9.3-17.3)
[2016-11-26 18:46] LABS: Albumin 3.9 G/DL (3.4-5.0); Bilirubin,Total 0.9 MG/DL (0.2-1.0); Calcium 9.2 MG/DL (8.5-10.1); Magnesium 1.9 MG/DL (1.8-2.4); Osmolality,Calculated 275.7 MOS/KG (273-304); Potassium 3.5 MMOL/L (3.5-5.1); Total Protein 9.7 G/DL (6.4-8.3)
[2016-11-26 18:47] LABS: Troponin I Only < 0.015 NG/ML (0.00-0.045)
[2016-11-26] MEDS: MAGNESIUM CHLORIDE 64 MG TABLET PO SCH (20:56)
[2016-11-26] MEDS: DILTIAZEM CD 120 MG CAPSULE PO SCH (20:56)
[2016-11-26] MEDS: APIXABAN 5 MG TABLET PO SCH (20:56)
[2016-11-26] MEDS: CARVEDILOL 12.5 MG TABLET PO SCH (20:56)
[2016-11-26] MEDS ORDERED: CARVEDILOL 6.25 MG TABLET PO SCH (21:00)
[2016-11-27] MEDS: LEVOTHYROXINE 100 MCG TABLET PO SCH (06:27)
[2016-11-27 06:43] LABS: Free T4 (Free Thyroxine) 1.63 NG/DL (0.76-1.46); Thyroid Stimulating Hormone 3.06 uIU/ml (0.358-3.74)
[2016-11-27] MEDS: PANTOPRAZOLE 40 MG TABLET PO SCH (08:59)
[2016-11-27] MEDS: FUROSEMIDE 40 MG TABLET PO SCH (08:59)
[2016-11-27] MEDS: AMIODARONE 200 MG TABLET PO SCH (09:00)
[2016-11-27] MEDS: LISINOPRIL 5 MG TABLET PO SCH (09:00)
[2016-11-27] MEDS: CARVEDILOL 12.5 MG TABLET PO SCH ×2 (09:00→20:26)
[2016-11-27] MEDS: APIXABAN 5 MG TABLET PO SCH ×2 (09:00→20:26)
[2016-11-27] MEDS: MAGNESIUM CHLORIDE 64 MG TABLET PO SCH ×2 (09:00→20:26)
[2016-11-27] MEDS: ASPIRIN EC 81 MG TABLET PO SCH (09:33)
[2016-11-27] MEDS: DILTIAZEM CD 120 MG CAPSULE PO SCH (20:26)
[2016-11-28 05:26] LABS: Basophils % 0.6 % (0.0-0.8); Eosinophils # 0.1 10*3/uL (0.0-0.87); Eosinophils % 1.4 % (0.00-10.9); Hematocrit 30.5 VOL% (42.0-52.0); Hemoglobin 9.6 GM/DL (14.0-18.0); Immature Granulocytes % 0.3 %; Immature Granulocytes Absolute 0.01 #; Lymphocytes # 1.2 10*3/uL (1.4-4.0); Lymphocytes % 34.6 % (21.2-54.2); Mean Corpuscular HGB Conc 31.5 GM/DL (32-36); Mean Corpuscular Hemoglobin 28 PG (27-34); Mean Corpuscular Volume 90.2 FL (87-102); Mean Platelet Volume 9.8 FL (9.6-12.0); Monocytes # 0.4 10*3/uL (0.11-0.8); Monocytes % 12.3 % (1.7-12.7); Neutrophils # 1.8 10*3/uL (1.4-7.4); Neutrophils % 50.8 % (38.7-73.9); Platelet Count 265 T/CUMM (130-400); Red Blood Count 3.38 MC/CUMM (3.8-5.5); Red Cell Distribution Width 15.2 % (9.3-17.3); White Blood Count 3.6 T/CUMM (4-12)
[2016-11-28 06:03] LABS: Calcium 8.1 MG/DL (8.5-10.1); Magnesium 1.9 MG/DL (1.8-2.4); Osmolality,Calculated 279.3 MOS/KG (273-304); Potassium 3.8 MMOL/L (3.5-5.1)
[2016-11-28] MEDS: LEVOTHYROXINE 100 MCG TABLET PO SCH (06:20)
[2016-11-28] MEDS: APIXABAN 5 MG TABLET PO SCH (09:27)
[2016-11-28] MEDS: LISINOPRIL 5 MG TABLET PO SCH (09:27)
[2016-11-28] MEDS: MAGNESIUM CHLORIDE 64 MG TABLET PO SCH (09:27)
[2016-11-28] MEDS: AMIODARONE 200 MG TABLET PO SCH (09:27)
[2016-11-28] MEDS: PANTOPRAZOLE 40 MG TABLET PO SCH (09:27)
[2016-11-28] MEDS: ASPIRIN EC 81 MG TABLET PO SCH (09:27)
[2016-11-28] MEDS: FUROSEMIDE 40 MG TABLET PO SCH (09:27)
[2016-11-28] MEDS: CARVEDILOL 12.5 MG TABLET PO SCH (09:28)
[2016-11-28] MEDS ORDERED: DILTIAZEM CD 120 MG CAPSULE PO SCH (10:40)
[2016-11-28 12:28] VITALS: BP 110/67
== END 2016-11-28 16:38 | disposition home or self-care (01) ==
LOC: N.TELEN
PROVIDERS: ADMIT Internal Medicine Clinical Cardiac Electrophysiology; ATTEND Internal Medicine Clinical Cardiac Electrophysiology

== ENCOUNTER 2017-09-28 11:46 | Inpatient (IN) ==
[2017-09-28 12:26] LABS: Basophils % 0.7 % (0.0-0.8); Eosinophils # 0.1 10*3/uL (0.0-0.87); Eosinophils % 1.7 % (0.00-10.9); Hematocrit 41.8 VOL% (42.0-52.0); Immature Granulocytes % 0.4 %; Immature Granulocytes Absolute 0.02 #; Lymphocytes # 1.4 10*3/uL (1.4-4.0); Lymphocytes % 29.6 % (21.2-54.2); Mean Corpuscular HGB Conc 33.5 GM/DL (32-36); Mean Corpuscular Hemoglobin 30 PG (27-34); Mean Corpuscular Volume 89.3 FL (87-102); Mean Platelet Volume 10.9 FL (9.6-12.0); Monocytes # 0.7 10*3/uL (0.11-0.8); Monocytes % 14.6 % (1.7-12.7); Neutrophils # 2.4 10*3/uL (1.4-7.4); Platelet Count 166 T/CUMM (130-400); Red Blood Count 4.68 MC/CUMM (3.8-5.5); Red Cell Distribution Width 14.9 % (9.3-17.3); White Blood Count 4.6 T/CUMM (4-12)
[2017-09-28 12:59] LABS: Alanine Aminotransferase 23 U/L (16-61); Albumin 3.3 G/DL (3.4-5.0); Alkaline Phosphatase 55 U/L (45-117); Aspartate Amino Transferase 22 U/L (0-37); Blood Urea Nitrogen 16 MG/DL (7-18); Calcium 8.5 MG/DL (8.5-10.1); Glucose 101 MG/DL (74-106); Osmolality,Calculated 283.1 MOS/KG (273-304); Potassium 3.4 MMOL/L (3.5-5.1); Sodium 142 MMOL/L (136-145); Total Protein 7.2 G/DL (6.4-8.3); Troponin I Only < 0.015 NG/ML (0.00-0.045)
[2017-09-28] MEDS ORDERED: ACETAMINOPHEN 325 MG TABLET PO PRN (14:10)
[2017-09-28] MEDS ORDERED: PROMETHAZINE 25 MG/1 ML VIAL IM PRN (14:10)
[2017-09-28] MEDS ORDERED: ONDANSETRON 4 MG/2 ML VIAL IV PRN (14:10)
[2017-09-28] MEDS ORDERED: NICOTINE 21 MG/24 HR PATCH TRANSDERM PRN (14:10)
[2017-09-28] MEDS ORDERED: BISACODYL 5 MG TABLET PO PRN (14:10)
[2017-09-28] MEDS ORDERED: POTASSIUM CHLORIDE 20 MEQ TABLET PO PRN (14:13)
[2017-09-28] MEDS ORDERED: POTASSIUM CHLORIDE RIDER 10 MEQ in PREMIX 1 EACH IV PRN (14:13)
[2017-09-28] MEDS ORDERED: MAGNESIUM SULF RIDER 2 GM in PREMIX 1 EACH IV ONE (14:13)
[2017-09-28] MEDS ORDERED: hydrALAZINE 20 MG/1 ML VIAL IV PRN (14:19)
[2017-09-28] MEDS ORDERED: METOPROLOL TARTRATE 5 MG/5 ML VIAL IV STA (14:29)
[2017-09-28] MEDS ORDERED: METOPROLOL TARTRATE 5 MG/5 ML VIAL IV ONE (14:30)
[2017-09-28] MEDS: SODIUM CHLORIDE 0.9% 1,000 ML IV SCH (16:16)
[2017-09-28] MEDS ORDERED: MAGNESIUM SULF RIDER 4 GM in PREMIX 1 EACH IV PRN (16:29)
[2017-09-28] MEDS ORDERED: MAGNESIUM SULF RIDER 2 GM in PREMIX 1 EACH IV PRN (16:29)
[2017-09-28] MEDS: CARVEDILOL 12.5 MG TABLET PO SCH (21:50)
[2017-09-28] MEDS: APIXABAN 5 MG TABLET PO SCH (21:50)
[2017-09-28] MEDS: DILTIAZEM CD 120 MG CAPSULE PO SCH (21:50)
[2017-09-29 01:11] LABS: Basophils # 0.1 10*3/uL (0.0-0.2); Basophils % 1.1 % (0.0-0.8); Eosinophils # 0.2 10*3/uL (0.0-0.87); Eosinophils % 3.4 % (0.00-10.9); Hematocrit 42.8 VOL% (42.0-52.0); Hemoglobin 14.2 GM/DL (14.0-18.0); Immature Granulocytes Absolute 0.09 #; Lymphocytes # 1.7 10*3/uL (1.4-4.0); Lymphocytes % 38.9 % (21.2-54.2); Mean Corpuscular HGB Conc 33.2 GM/DL (32-36); Mean Corpuscular Hemoglobin 30 PG (27-34); Mean Corpuscular Volume 90.9 FL (87-102); Mean Platelet Volume 12.3 FL (9.6-12.0); Monocytes # 0.7 10*3/uL (0.11-0.8); Monocytes % 14.8 % (1.7-12.7); Neutrophils # 1.8 10*3/uL (1.4-7.4); Neutrophils % 39.8 % (38.7-73.9); Platelet Count 93 T/CUMM (130-400); Red Blood Count 4.71 MC/CUMM (3.8-5.5); Red Cell Distribution Width 15.3 % (9.3-17.3); White Blood Count 4.5 T/CUMM (4-12)
[2017-09-29 01:38] LABS: Albumin 2.8 G/DL (3.4-5.0); Bilirubin,Total 0.6 MG/DL (0.2-1.0); Calcium 8.3 MG/DL (8.5-10.1); Osmolality,Calculated 281.3 MOS/KG (273-304); Potassium 3.8 MMOL/L (3.5-5.1); Total Protein 6.8 G/DL (6.4-8.3)
[2017-09-29 04:25] LABS: Platelet Estimate Decreased
[2017-09-29] MEDS: LEVOTHYROXINE 50 MCG TABLET PO SCH (05:57)
[2017-09-29 06:23] LABS: Apearance,Urine CLEAR (Clear); Bilirubin,Urine Negative (Negative); Blood, Urine Negative (Negative); Glucose,Urine (UA) Negative (Negative); Ketones,Urine Negative (Negative); Mucus,Urine Occasional /LPF (Occasional); Nitrite,Urine Negative (Negative); Protein,Urine Negative; RBC,Urine 1 /HPF (0-4); Urine Color Yellow (Yellow); Urine Specific Gravity 1.015 (1.001-1.035); Urine Urobilinogen < 2.0 EU/DL (0.2-1.0); WBC,Urine <1 /HPF (0-6)
[2017-09-29] MEDS: ASPIRIN EC 81 MG TABLET PO SCH (10:51)
[2017-09-29] MEDS: DILTIAZEM CD 120 MG CAPSULE PO SCH ×2 (10:51→20:33)
[2017-09-29] MEDS: CARVEDILOL 12.5 MG TABLET PO SCH (10:51)
[2017-09-29] MEDS: APIXABAN 5 MG TABLET PO SCH ×2 (10:51→20:32)
[2017-09-29] MEDS: PANTOPRAZOLE 40 MG TABLET PO SCH (10:51)
[2017-09-29] MEDS: SODIUM CHLORIDE 0.9% 1,000 ML IV SCH (13:16)
[2017-09-29] MEDS: SOTALOL 80 MG TABLET PO SCH (20:32)
[2017-09-30 04:46] LABS: Basophils % 0.9 % (0.0-0.8); Eosinophils # 0.1 10*3/uL (0.0-0.87); Eosinophils % 3.1 % (0.00-10.9); Hematocrit 39.5 VOL% (42.0-52.0); Hemoglobin 12.8 GM/DL (14.0-18.0); Immature Granulocytes % 0.2 %; Immature Granulocytes Absolute 0.01 #; Lymphocytes # 1.6 10*3/uL (1.4-4.0); Lymphocytes % 37.7 % (21.2-54.2); Mean Corpuscular HGB Conc 32.4 GM/DL (32-36); Mean Corpuscular Hemoglobin 29 PG (27-34); Mean Corpuscular Volume 90.8 FL (87-102); Mean Platelet Volume 10.8 FL (9.6-12.0); Monocytes # 0.6 10*3/uL (0.11-0.8); Neutrophils # 1.9 10*3/uL (1.4-7.4); Neutrophils % 44.1 % (38.7-73.9); Platelet Count 160 T/CUMM (130-400); Red Blood Count 4.35 MC/CUMM (3.8-5.5); Red Cell Distribution Width 14.8 % (9.3-17.3); White Blood Count 4.2 T/CUMM (4-12)
[2017-09-30 05:03] LABS: Calcium 7.5 MG/DL (8.5-10.1); Osmolality,Calculated 284.8 MOS/KG (273-304); Potassium 3.4 MMOL/L (3.5-5.1)
[2017-09-30] MEDS: LEVOTHYROXINE 50 MCG TABLET PO SCH (06:44)
[2017-09-30] MEDS: APIXABAN 5 MG TABLET PO SCH ×2 (08:59→21:33)
[2017-09-30] MEDS: PANTOPRAZOLE 40 MG TABLET PO SCH (08:59)
[2017-09-30] MEDS: SOTALOL 80 MG TABLET PO SCH ×2 (08:59→21:33)
[2017-09-30] MEDS: ASPIRIN EC 81 MG TABLET PO SCH (08:59)
[2017-10-01] MEDS: LEVOTHYROXINE 50 MCG TABLET PO SCH (05:47)
[2017-10-01] MEDS: APIXABAN 5 MG TABLET PO SCH (08:31)
[2017-10-01] MEDS: PANTOPRAZOLE 40 MG TABLET PO SCH (08:31)
[2017-10-01] MEDS: SOTALOL 80 MG TABLET PO SCH (08:31)
[2017-10-01] MEDS: ASPIRIN EC 81 MG TABLET PO SCH (08:31)
[2017-10-01] MEDS ORDERED: amLODIPine 5 MG TABLET PO SCH (09:00)
[2017-10-01 09:47] LABS: Eosinophils # 0.1 10*3/uL (0.0-0.87); Eosinophils % 2.6 % (0.00-10.9); Immature Granulocytes % 0.3 %; Immature Granulocytes Absolute 0.01 #; Mean Corpuscular HGB Conc 33.3 GM/DL (32-36); Red Cell Distribution Width 14.8 % (9.3-17.3)
[2017-10-01 09:54] LABS: Hematocrit 43.3 VOL% (42.0-52.0); Hemoglobin 14.4 GM/DL (14.0-18.0); Lymphocytes # 1.6 10*3/uL (1.4-4.0); Lymphocytes % 40.9 % (21.2-54.2); Mean Corpuscular Hemoglobin 30 PG (27-34); Monocytes # 0.4 10*3/uL (0.11-0.8); Neutrophils # 1.8 10*3/uL (1.4-7.4); Neutrophils % 45.2 % (38.7-73.9); Platelet Count 185 T/CUMM (130-400); Red Blood Count 4.76 MC/CUMM (3.8-5.5); White Blood Count 3.9 T/CUMM (4-12)
[2017-10-01 10:05] LABS: Calcium 8.6 MG/DL (8.5-10.1); Osmolality,Calculated 280.3 MOS/KG (273-304); Potassium 3.4 MMOL/L (3.5-5.1)
[2017-10-01 12:31] VITALS: BP 151/83
== END 2017-10-01 14:29 | disposition home or self-care (01) | DRG 309 ==
LOC: N.ED 11:46 → N.EDINP 11:46 → N.TELES 14:54
PROVIDERS: ADMIT Internal Medicine; ATTEND Internal Medicine

== ENCOUNTER 2018-06-22 06:27 | Inpatient (IN) ==
[2018-06-18 13:42] LABS: Basophils % 0.6 % (0.0-0.8); Eosinophils % 0.9 % (0.00-10.9); Hematocrit 47.7 VOL% (42.0-52.0); Hemoglobin 15.4 GM/DL (14.0-18.0); Lymphocytes # 1.7 10*3/uL (1.4-4.0); Lymphocytes % 50.7 % (21.2-54.2); Mean Corpuscular HGB Conc 32.3 GM/DL (32-36); Mean Platelet Volume 10.4 FL (9.6-12.0); Monocytes % 15.9 % (1.7-12.7); Neutrophils % 31.9 % (38.7-73.9); Platelet Count 173 T/CUMM (130-400); Red Blood Count 5.36 MC/CUMM (3.8-5.5); Red Cell Distribution Width 14.2 % (9.3-17.3); White Blood Count 3.4 T/CUMM (4-12)
[2018-06-18 13:58] LABS: INR 2.9; Partial Thromboplastin Time 33.5 SECS (0-40)
[2018-06-18 14:06] LABS: Calcium 9.2 MG/DL (8.5-10.1); Osmolality,Calculated 281.1 MOS/KG (273-304)
[2018-06-18 14:26] LABS: Eosinophils 2 % (0-10); Lymphocytes 60 % (20-55); Segmented Neutrophils 21 % (50-85)
[2018-06-18 14:27] LABS: Total Cells Counted 100
[~2018-06-22 06:27] MED LIST: ceFAZolin 1,000 MG VIAL ONE; ceFAZolin 1,000 MG in SYRINGE 1 EACH IV ONE
[2018-06-22 07:34] LABS: INR 2.5; Partial Thromboplastin Time 26.5 SECS (0-40)
[2018-06-22 07:40] LABS: PT Patient Result 27.1 SECS
[2018-06-22 09:12] LABS: Calcium 8.8 MG/DL (8.5-10.1); Osmolality,Calculated 284.8 MOS/KG (273-304)
[2018-06-22] MEDS ORDERED: ACETAMINOPHEN 325 MG TABLET PO PRN (13:05)
[2018-06-22] MEDS ORDERED: ONDANSETRON 4 MG/2 ML VIAL IV PRN (13:05)
[2018-06-22] MEDS: ENOXAPARIN 100 MG/ML SYRINGE SUBCUT SCH (14:35)
[2018-06-22] MEDS: DILTIAZEM CD 180 MG CAPSULE PO SCH (21:50)
[2018-06-22] MEDS: CARVEDILOL 12.5 MG TABLET PO SCH (21:50)
[2018-06-23] MEDS: ENOXAPARIN 100 MG/ML SYRINGE SUBCUT SCH ×2 (01:29→14:07)
[2018-06-23] MEDS ORDERED: CLINDAMYCIN INJ 900 MG in PREMIX 1 EACH IV ONE (07:44)
[2018-06-23] MEDS: DILTIAZEM CD 180 MG CAPSULE PO SCH ×2 (08:45→21:21)
[2018-06-23] MEDS: LISINOPRIL 5 MG TABLET PO SCH (08:46)
[2018-06-23] MEDS: CARVEDILOL 12.5 MG TABLET PO SCH ×2 (08:46→21:21)
[2018-06-23] MEDS: AMIODARONE 200 MG TABLET PO SCH (08:46)
[2018-06-23] MEDS: FUROSEMIDE 40 MG TABLET PO SCH (08:46)
[2018-06-23] MEDS: LEVOTHYROXINE 100 MCG TABLET PO SCH (08:46)
[2018-06-23] MEDS: PANTOPRAZOLE 40 MG TABLET PO SCH (08:46)
[2018-06-23] MEDS ORDERED: PANTOPRAZOLE 40 MG TABLET PO SCH (09:00)
[2018-06-24] MEDS: ENOXAPARIN 100 MG/ML SYRINGE SUBCUT SCH ×3 (02:19→16:05)
[2018-06-24 05:30] LABS: Basophils % 0.8 % (0.0-0.8); Eosinophils # 0.1 10*3/uL (0.0-0.87); Eosinophils % 3.3 % (0.00-10.9); Hematocrit 45.2 VOL% (42.0-52.0); Hemoglobin 14.3 GM/DL (14.0-18.0); Lymphocytes # 2.3 10*3/uL (1.4-4.0); Lymphocytes % 56.7 % (21.2-54.2); Mean Corpuscular HGB Conc 31.6 GM/DL (32-36); Mean Corpuscular Volume 89.2 FL (87-102); Mean Platelet Volume 10.7 FL (9.6-12.0); Monocytes % 15.4 % (1.7-12.7); Neutrophils % 23.8 % (38.7-73.9); Platelet Count 157 T/CUMM (130-400); Red Blood Count 5.07 MC/CUMM (3.8-5.5); Red Cell Distribution Width 14.1 % (9.3-17.3)
[2018-06-24 05:56] LABS: Calcium 8.4 MG/DL (8.5-10.1); Osmolality,Calculated 285.8 MOS/KG (273-304)
[2018-06-24 06:17] LABS: Band Neutrophils 2 % (0-10); Eosinophils 5 % (0-10); Lymphocytes 54 % (20-55); Segmented Neutrophils 26 % (50-85); Total Cells Counted 100
[2018-06-24 06:18] LABS: Anisocytosis 1+; Platelet Estimate Adequate
[2018-06-24] MEDS: DILTIAZEM CD 180 MG CAPSULE PO SCH ×3 (06:35→21:31)
[2018-06-24] MEDS: CARVEDILOL 12.5 MG TABLET PO SCH ×3 (06:35→21:33)
[2018-06-24] MEDS: AMIODARONE 200 MG TABLET PO SCH ×2 (06:35→11:29)
[2018-06-24] MEDS: LISINOPRIL 5 MG TABLET PO SCH ×2 (06:35→11:29)
[2018-06-24] MEDS ORDERED: BUPIVACAINE 0.5% 50 ML VIAL ONE (06:52)
[2018-06-24] MEDS ORDERED: LIDOCAINE 1%/EPI INJ 20 ML VIAL ONE (06:53)
[2018-06-24] MEDS ORDERED: ceFAZolin 1,000 MG VIAL ONE ×2 (06:53→07:34)
[2018-06-24] MEDS: LACTATED RINGERS 1,000 ML IV SCH ×2 (07:15→08:15)
[2018-06-24] MEDS ORDERED: ACETAMINOPHEN 1,000 MG/100 ML VIAL IV ONE (08:02)
[2018-06-24] MEDS ORDERED: SEVOFLURANE 1 UNIT/15 MINUTE INH ONE (10:06)
[2018-06-24] MEDS ORDERED: fentaNYL 100 MCG/2 ML VIAL ONE (10:06)
[2018-06-24] MEDS ORDERED: PROPOFOL 200 MG/20 ML VIAL IV ONE (10:06)
[2018-06-24] MEDS ORDERED: ROCURONIUM 100 MG/10 ML VIAL IV ONE (10:07)
[2018-06-24] MEDS ORDERED: ePHEDrine 50 MG/ML AMP ONE (10:07)
[2018-06-24] MEDS ORDERED: MIDAZOLAM 2 MG/2 ML VIAL ONE (10:07)
[2018-06-24] MEDS ORDERED: KETOROLAC 30 MG/1 ML VIAL ONE (10:07)
[2018-06-24] MEDS ORDERED: DEXAMETHASONE 4 MG/1 ML VIAL ONE (10:07)
[2018-06-24] MEDS ORDERED: NEOSTIGMINE 10 MG/10 ML VIAL ONE (10:07)
[2018-06-24] MEDS ORDERED: GLYCOPYRROLATE 0.4 MG/2 ML VIAL ONE (10:07)
[2018-06-24] MEDS ORDERED: ONDANSETRON 4 MG/2 ML VIAL ONE (10:07)
[2018-06-24] MEDS ORDERED: SUCCINYLCHOLINE 200 MG/10 ML VIAL ONE (10:07)
[2018-06-24] MEDS ORDERED: LACTATED RINGERS 1,000 ML IV ONE (10:08)
[2018-06-24 11:44] LABS: Basophils % 0.2 % (0.0-0.8); Eosinophils % 0.1 % (0.00-10.9); Hematocrit 43.6 VOL% (42.0-52.0); Immature Granulocytes % 0.6 %; Immature Granulocytes Absolute 0.09 #; Lymphocytes # 0.6 10*3/uL (1.4-4.0); Lymphocytes % 4.2 % (21.2-54.2); Mean Corpuscular HGB Conc 32.1 GM/DL (32-36); Mean Corpuscular Volume 90.1 FL (87-102); Mean Platelet Volume 10.5 FL (9.6-12.0); Monocytes % 3.8 % (1.7-12.7); Neutrophils % 91.1 % (38.7-73.9); Platelet Count 155 T/CUMM (130-400); Red Blood Count 4.84 MC/CUMM (3.8-5.5); Red Cell Distribution Width 14.2 % (9.3-17.3); White Blood Count 14.5 T/CUMM (4-12)
[2018-06-24 11:58] LABS: Calcium 8.4 MG/DL (8.5-10.1)
[2018-06-24 12:02] LABS: Band Neutrophils 1 % (0-10); Lymphocytes 2 % (20-55); Segmented Neutrophils 93 % (50-85); Total Cells Counted 100
[2018-06-24 12:03] LABS: Hypochromasia 1+; Platelet Estimate Adequate
[2018-06-24] MEDS: LEVOTHYROXINE 100 MCG TABLET PO SCH (12:27)
[2018-06-24] MEDS: PANTOPRAZOLE 40 MG TABLET PO SCH (12:27)
[2018-06-24] MEDS: FUROSEMIDE 40 MG TABLET PO SCH (12:27)
[2018-06-24] MEDS ORDERED: HYDROmorphone 2 MG/1 ML VIAL IV PRN (16:21)
[2018-06-25 04:58] LABS: Basophils % 0.1 % (0.0-0.8); Hematocrit 43.5 VOL% (42.0-52.0); Hemoglobin 14.3 GM/DL (14.0-18.0); Immature Granulocytes % 0.3 %; Immature Granulocytes Absolute 0.04 #; Lymphocytes # 0.7 10*3/uL (1.4-4.0); Lymphocytes % 5.4 % (21.2-54.2); Mean Corpuscular HGB Conc 32.9 GM/DL (32-36); Mean Corpuscular Volume 89.1 FL (87-102); Mean Platelet Volume 11.3 FL (9.6-12.0); Monocytes % 8.4 % (1.7-12.7); Neutrophils % 85.8 % (38.7-73.9); Platelet Count 162 T/CUMM (130-400); Red Blood Count 4.88 MC/CUMM (3.8-5.5); Red Cell Distribution Width 14.5 % (9.3-17.3); White Blood Count 13.8 T/CUMM (4-12)
[2018-06-25] MEDS: ENOXAPARIN 100 MG/ML SYRINGE SUBCUT SCH ×2 (04:59→16:48)
[2018-06-25 05:17] LABS: Calcium 7.9 MG/DL (8.5-10.1); Osmolality,Calculated 277.7 MOS/KG (273-304)
[2018-06-25] MEDS ORDERED: MAGNESIUM SULF RIDER 2 GM in PREMIX 1 EACH IV ONE (07:47)
[2018-06-25] MEDS: DILTIAZEM CD 180 MG CAPSULE PO SCH ×2 (09:12→20:50)
[2018-06-25] MEDS: AMIODARONE 200 MG TABLET PO SCH (09:12)
[2018-06-25] MEDS: CARVEDILOL 12.5 MG TABLET PO SCH ×2 (09:12→20:50)
[2018-06-25] MEDS: LISINOPRIL 5 MG TABLET PO SCH (09:13)
[2018-06-25] MEDS: PANTOPRAZOLE 40 MG TABLET PO SCH (09:13)
[2018-06-25] MEDS: FUROSEMIDE 40 MG TABLET PO SCH (09:13)
[2018-06-25] MEDS: LEVOTHYROXINE 100 MCG TABLET PO SCH (09:13)
[2018-06-26] MEDS: ENOXAPARIN 100 MG/ML SYRINGE SUBCUT SCH ×2 (03:40→21:09)
[2018-06-26 05:04] LABS: Basophils % 0.1 % (0.0-0.8); Eosinophils % 0.4 % (0.00-10.9); Hematocrit 39.4 VOL% (42.0-52.0); Hemoglobin 12.8 GM/DL (14.0-18.0); Immature Granulocytes % 0.3 %; Immature Granulocytes Absolute 0.03 #; Lymphocytes # 1.5 10*3/uL (1.4-4.0); Lymphocytes % 16.3 % (21.2-54.2); Mean Corpuscular HGB Conc 32.5 GM/DL (32-36); Mean Corpuscular Volume 90.2 FL (87-102); Mean Platelet Volume 10.7 FL (9.6-12.0); Monocytes % 12.2 % (1.7-12.7); Neutrophils % 70.7 % (38.7-73.9); Platelet Count 155 T/CUMM (130-400); Red Blood Count 4.37 MC/CUMM (3.8-5.5); Red Cell Distribution Width 14.8 % (9.3-17.3); White Blood Count 9.2 T/CUMM (4-12)
[2018-06-26 05:32] LABS: Calcium 8.4 MG/DL (8.5-10.1); Osmolality,Calculated 279.4 MOS/KG (273-304)
[2018-06-26] MEDS: DILTIAZEM CD 180 MG CAPSULE PO SCH ×2 (09:35→21:09)
[2018-06-26] MEDS: PANTOPRAZOLE 40 MG TABLET PO SCH (09:36)
[2018-06-26] MEDS: LEVOTHYROXINE 100 MCG TABLET PO SCH (09:36)
[2018-06-26] MEDS: CARVEDILOL 12.5 MG TABLET PO SCH ×2 (09:36→21:09)
[2018-06-26] MEDS: LISINOPRIL 5 MG TABLET PO SCH (09:36)
[2018-06-26] MEDS: FUROSEMIDE 40 MG TABLET PO SCH (09:36)
[2018-06-26] MEDS: AMIODARONE 200 MG TABLET PO SCH (09:36)
[2018-06-26 12:14] LABS: Hemoglobin 13.2 GM/DL (14.0-18.0)
[2018-06-27 04:34] LABS: Basophils % 0.2 % (0.0-0.8); Eosinophils # 0.2 10*3/uL (0.0-0.87); Eosinophils % 1.8 % (0.00-10.9); Hematocrit 38.5 VOL% (42.0-52.0); Hemoglobin 12.4 GM/DL (14.0-18.0); Immature Granulocytes % 0.5 %; Immature Granulocytes Absolute 0.04 #; Lymphocytes # 2.3 10*3/uL (1.4-4.0); Lymphocytes % 27.5 % (21.2-54.2); Mean Corpuscular HGB Conc 32.2 GM/DL (32-36); Mean Corpuscular Volume 90.2 FL (87-102); Mean Platelet Volume 10.9 FL (9.6-12.0); Monocytes % 11.6 % (1.7-12.7); Neutrophils % 58.4 % (38.7-73.9); Platelet Count 155 T/CUMM (130-400); Red Blood Count 4.27 MC/CUMM (3.8-5.5); Red Cell Distribution Width 14.9 % (9.3-17.3); White Blood Count 8.2 T/CUMM (4-12)
[2018-06-27 04:48] LABS: Calcium 8.4 MG/DL (8.5-10.1); Osmolality,Calculated 280.3 MOS/KG (273-304)
[2018-06-27] MEDS: DILTIAZEM CD 180 MG CAPSULE PO SCH ×2 (09:17→21:50)
[2018-06-27] MEDS: LEVOTHYROXINE 100 MCG TABLET PO SCH (09:18)
[2018-06-27] MEDS: PANTOPRAZOLE 40 MG TABLET PO SCH (09:18)
[2018-06-27] MEDS: LISINOPRIL 5 MG TABLET PO SCH (09:18)
[2018-06-27] MEDS: CARVEDILOL 12.5 MG TABLET PO SCH ×2 (09:18→21:51)
[2018-06-27] MEDS: AMIODARONE 200 MG TABLET PO SCH (09:18)
[2018-06-27] MEDS: FUROSEMIDE 40 MG TABLET PO SCH (09:18)
[2018-06-27] MEDS: ENOXAPARIN 100 MG/ML SYRINGE SUBCUT SCH ×2 (10:24→21:35)
[2018-06-28 05:25] LABS: Basophils % 0.3 % (0.0-0.8); Eosinophils # 0.2 10*3/uL (0.0-0.87); Eosinophils % 2.6 % (0.00-10.9); Hematocrit 39.9 VOL% (42.0-52.0); Hemoglobin 12.4 GM/DL (14.0-18.0); Immature Granulocytes % 0.5 %; Immature Granulocytes Absolute 0.03 #; Lymphocytes # 1.7 10*3/uL (1.4-4.0); Lymphocytes % 29.6 % (21.2-54.2); Mean Corpuscular HGB Conc 31.1 GM/DL (32-36); Mean Corpuscular Volume 91.5 FL (87-102); Mean Platelet Volume 10.5 FL (9.6-12.0); Monocytes % 14.1 % (1.7-12.7); Neutrophils % 52.9 % (38.7-73.9); Platelet Count 168 T/CUMM (130-400); Red Blood Count 4.36 MC/CUMM (3.8-5.5); Red Cell Distribution Width 14.9 % (9.3-17.3); White Blood Count 5.8 T/CUMM (4-12)
[2018-06-28] MEDS: DILTIAZEM CD 180 MG CAPSULE PO SCH (08:51)
[2018-06-28] MEDS: ENOXAPARIN 100 MG/ML SYRINGE SUBCUT SCH (08:51)
[2018-06-28] MEDS: PANTOPRAZOLE 40 MG TABLET PO SCH (08:51)
[2018-06-28] MEDS: LISINOPRIL 5 MG TABLET PO SCH (08:53)
[2018-06-28] MEDS: CARVEDILOL 12.5 MG TABLET PO SCH (08:53)
[2018-06-28] MEDS: FUROSEMIDE 40 MG TABLET PO SCH (08:53)
[2018-06-28] MEDS: AMIODARONE 200 MG TABLET PO SCH (08:53)
[2018-06-28] MEDS: LEVOTHYROXINE 100 MCG TABLET PO SCH (08:53)
[2018-06-28 11:21] VITALS: BP 104/65
== END 2018-06-28 15:37 | disposition home or self-care (01) | DRG 351 ==
LOC: N.OR 06:27 → N.SDSINP 06:30 → N.3E 12:43
PROVIDERS: ADMIT Surgery; ATTEND Surgery

== ENCOUNTER 2018-11-02 14:42 | Observation (INO) ==
[2018-11-02 15:48] LABS: Basophils % 0.8 % (0.0-0.8); Eosinophils % 0.6 % (0.00-10.9); Hematocrit 43.9 VOL% (42.0-52.0); Hemoglobin 14.2 GM/DL (14.0-18.0); Immature Granulocytes % 0.3 %; Immature Granulocytes Absolute 0.01 #; Lymphocytes # 1.2 10*3/uL (1.4-4.0); Lymphocytes % 34.4 % (21.2-54.2); Mean Corpuscular HGB Conc 32.3 GM/DL (32-36); Mean Corpuscular Volume 90.1 FL (87-102); Mean Platelet Volume 10.9 FL (9.6-12.0); Monocytes % 14.4 % (1.7-12.7); Neutrophils % 49.5 % (38.7-73.9); Platelet Count 164 T/CUMM (130-400); Red Blood Count 4.87 MC/CUMM (3.8-5.5); Red Cell Distribution Width 14.5 % (9.3-17.3); White Blood Count 3.6 T/CUMM (4-12)
[2018-11-02 15:59] LABS: Albumin 3.7 G/DL (3.4-5.0); Bilirubin,Total 0.8 MG/DL (0.2-1.0); Calcium 8.8 MG/DL (8.5-10.1); Osmolality,Calculated 285.7 MOS/KG (273-304); Total Protein 7.3 G/DL (6.4-8.3)
[2018-11-02] MEDS ORDERED: MAGNESIUM SULF RIDER 2 GM in PREMIX 1 EACH IV PRN (17:34)
[2018-11-02] MEDS ORDERED: ONDANSETRON 4 MG/2 ML VIAL IV PRN (17:34)
[2018-11-02] MEDS ORDERED: ENOXAPARIN 100 MG/ML SYRINGE SUBCUT SCH (18:00)
[2018-11-02] MEDS ORDERED: INFLUENZA VIRUS VACCINE 0.5 ML SYRINGE IM ONE (18:14)
[2018-11-02] MEDS ORDERED: hydrALAZINE 20 MG/1 ML VIAL IV PRN (18:21)
[2018-11-02] MEDS: carvediloL 12.5 MG TABLET PO SCH (20:46)
[2018-11-02] MEDS: MORPHINE 4 MG/1 ML VIAL IV PRN (20:47)
[2018-11-03 05:43] LABS: Basophils % 0.9 % (0.0-0.8); Eosinophils % 1.3 % (0.00-10.9); Hematocrit 43.3 VOL% (42.0-52.0); Immature Granulocytes % 0.3 %; Immature Granulocytes Absolute 0.01 #; Lymphocytes # 1.5 10*3/uL (1.4-4.0); Lymphocytes % 46.2 % (21.2-54.2); Mean Corpuscular HGB Conc 32.3 GM/DL (32-36); Mean Corpuscular Volume 90.2 FL (87-102); Mean Platelet Volume 10.6 FL (9.6-12.0); Monocytes % 20.9 % (1.7-12.7); Neutrophils % 30.4 % (38.7-73.9); Platelet Count 148 T/CUMM (130-400); Red Cell Distribution Width 14.5 % (9.3-17.3); White Blood Count 3.2 T/CUMM (4-12)
[2018-11-03] MEDS: LEVOTHYROXINE 100 MCG TABLET PO SCH (05:44)
[2018-11-03 06:06] LABS: Eosinophils 2 % (0-10); Lymphocytes 50 % (20-55); Segmented Neutrophils 32 % (50-85); Total Cells Counted 100
[2018-11-03 06:07] LABS: Hypochromasia 1+; Platelet Estimate Adequate
[2018-11-03 06:10] LABS: Albumin 3.4 G/DL (3.4-5.0); Bilirubin,Total 0.6 MG/DL (0.2-1.0); Calcium 8.6 MG/DL (8.5-10.1); Osmolality,Calculated 283.8 MOS/KG (273-304); Risk Ratio 2.6; Thyroid Stimulating Hormone 5.76 uIU/ml (0.358-3.74); VLDL CHOLESTEROL 18.4 MG/DL
[2018-11-03] MEDS ORDERED: PANTOPRAZOLE 40 MG TABLET PO SCH (09:00)
[2018-11-03] MEDS: AMIODARONE 200 MG TABLET PO SCH (09:20)
[2018-11-03] MEDS: DILTIAZEM CD 120 MG CAPSULE PO SCH (09:20)
[2018-11-03] MEDS: DIGOXIN 0.25 MG TABLET PO SCH (09:20)
[2018-11-03] MEDS: LISINOPRIL 10 MG TABLET PO SCH (09:21)
[2018-11-03] MEDS: carvediloL 12.5 MG TABLET PO SCH ×2 (09:21→17:23)
[2018-11-03] MEDS: ENOXAPARIN 100 MG/ML SYRINGE SUBCUT SCH (17:23)
[2018-11-03] MEDS: ACETAMINOPHEN 325 MG TABLET PO PRN (21:59)
[2018-11-03] MEDS: PANTOPRAZOLE 40 MG TABLET PO SCH (21:59)
[2018-11-04 04:49] LABS: Eosinophils # 0.1 10*3/uL (0.0-0.87); Eosinophils % 2.4 % (0.00-10.9); Hemoglobin 14.5 GM/DL (14.0-18.0); Immature Granulocytes % 0.3 %; Immature Granulocytes Absolute 0.01 #; Lymphocytes # 1.4 10*3/uL (1.4-4.0); Lymphocytes % 49.3 % (21.2-54.2); Mean Corpuscular Volume 89.4 FL (87-102); Mean Platelet Volume 11.2 FL (9.6-12.0); Monocytes % 17.6 % (1.7-12.7); Neutrophils % 29.4 % (38.7-73.9); Platelet Count 154 T/CUMM (130-400); Red Blood Count 4.92 MC/CUMM (3.8-5.5); Red Cell Distribution Width 14.2 % (9.3-17.3); White Blood Count 2.9 T/CUMM (4-12)
[2018-11-04 05:07] LABS: Albumin 3.2 G/DL (3.4-5.0); Bilirubin,Total 0.7 MG/DL (0.2-1.0); Calcium 8.4 MG/DL (8.5-10.1); Osmolality,Calculated 281.1 MOS/KG (273-304); Total Protein 6.7 G/DL (6.4-8.3)
[2018-11-04 05:31] LABS: Eosinophils 4 % (0-10); Lymphocytes 46 % (20-55); Metamyelocytes 2 %; Myelocytes 1 %; Segmented Neutrophils 28 % (50-85); Total Cells Counted 100
[2018-11-04 05:32] LABS: Atypical Lymphocytes Few; Platelet Estimate Normal; Reactive Lymphocytes Few
[2018-11-04] MEDS: ENOXAPARIN 100 MG/ML SYRINGE SUBCUT SCH ×2 (06:14→17:12)
[2018-11-04] MEDS: LEVOTHYROXINE 100 MCG TABLET PO SCH (07:13)
[2018-11-04] MEDS ORDERED: fentaNYL 100 MCG/2 ML VIAL ONE (08:32)
[2018-11-04] MEDS ORDERED: MIDAZOLAM 2 MG/2 ML VIAL ONE ×2 (08:32→09:01)
[2018-11-04] MEDS ORDERED: ceFAZolin 1,000 MG VIAL ONE (08:32)
[2018-11-04] MEDS ORDERED: HEPARIN/NACL 0.9% 2 UNITS/ML 500 ML IV ONE ×3 (08:36→10:23)
[2018-11-04] MEDS ORDERED: LIDOCAINE 1% 20 ML VIAL ONE (08:39)
[2018-11-04] MEDS ORDERED: hydrALAZINE 20 MG/1 ML VIAL ONE (10:05)
[2018-11-04] MEDS: DIGOXIN 0.25 MG TABLET PO SCH (11:31)
[2018-11-04] MEDS: PANTOPRAZOLE 40 MG TABLET PO SCH ×2 (11:31→21:15)
[2018-11-04] MEDS: AMIODARONE 200 MG TABLET PO SCH (11:31)
[2018-11-04] MEDS: DILTIAZEM CD 180 MG CAPSULE PO SCH ×2 (11:31→21:36)
[2018-11-04] MEDS: POTASSIUM CHLORIDE 20 MEQ TABLET PO PRN (11:31)
[2018-11-04] MEDS: LISINOPRIL 10 MG TABLET PO SCH (11:32)
[2018-11-04] MEDS: DILTIAZEM CD 120 MG CAPSULE PO SCH (11:35)
[2018-11-04] MEDS: carvediloL 12.5 MG TABLET PO SCH (11:35)
[2018-11-04] MEDS: ACETAMINOPHEN 325 MG TABLET PO PRN (16:35)
[2018-11-04] MEDS: carvediloL 25 MG TABLET PO SCH (16:35)
[2018-11-04] MEDS: MORPHINE 4 MG/1 ML VIAL IV PRN (22:31)
[2018-11-05 04:24] LABS: Basophils % 0.7 % (0.0-0.8); Eosinophils # 0.1 10*3/uL (0.0-0.87); Eosinophils % 1.5 % (0.00-10.9); Hematocrit 44.2 VOL% (42.0-52.0); Hemoglobin 14.7 GM/DL (14.0-18.0); Immature Granulocytes % 0.2 %; Immature Granulocytes Absolute 0.01 #; Lymphocytes # 1.3 10*3/uL (1.4-4.0); Lymphocytes % 32.7 % (21.2-54.2); Mean Corpuscular HGB Conc 33.3 GM/DL (32-36); Mean Platelet Volume 10.8 FL (9.6-12.0); Monocytes % 18.1 % (1.7-12.7); Neutrophils % 46.8 % (38.7-73.9); Platelet Count 161 T/CUMM (130-400); Red Blood Count 5.02 MC/CUMM (3.8-5.5); Red Cell Distribution Width 14.5 % (9.3-17.3)
[2018-11-05 04:55] LABS: Calcium 8.2 MG/DL (8.5-10.1); Osmolality,Calculated 284.8 MOS/KG (273-304)
[2018-11-05 05:16] LABS: Band Neutrophils 4 % (0-10); Lymphocytes 35 % (20-55); Segmented Neutrophils 49 % (50-85); Total Cells Counted 100
[2018-11-05 05:17] LABS: Anisocytosis 1+; Platelet Estimate Normal
[2018-11-05] MEDS: LEVOTHYROXINE 100 MCG TABLET PO SCH (05:36)
[2018-11-05] MEDS: ENOXAPARIN 100 MG/ML SYRINGE SUBCUT SCH (05:37)
[2018-11-05] MEDS: DIGOXIN 0.25 MG TABLET PO SCH (09:14)
[2018-11-05] MEDS: MORPHINE 4 MG/1 ML VIAL IV PRN (09:15)
[2018-11-05] MEDS: POTASSIUM CHLORIDE 20 MEQ TABLET PO PRN (09:16)
[2018-11-05] MEDS: PANTOPRAZOLE 40 MG TABLET PO SCH (09:16)
[2018-11-05] MEDS: LISINOPRIL 10 MG TABLET PO SCH (09:16)
[2018-11-05] MEDS: DILTIAZEM CD 180 MG CAPSULE PO SCH (09:18)
[2018-11-05] MEDS: carvediloL 25 MG TABLET PO SCH (09:19)
[2018-11-05] MEDS: AMIODARONE 200 MG TABLET PO SCH (09:20)
[2018-11-05 11:32] VITALS: BP 156/76
== END 2018-11-05 15:25 | disposition home or self-care (01) ==
LOC: EDUNIT# → EDBD → N.ED 14:42 → N.EDINP 14:42 → N.TELEN 17:52
PROVIDERS: ADMIT Emergency Medicine; ATTEND Emergency Medicine

== ENCOUNTER 2019-01-05 16:59 | Observation (INO) ==
[2019-01-05 18:02] LABS: Basophils % 0.9 % (0.0-0.8); Eosinophils # 0.1 10*3/uL (0.0-0.87); Eosinophils % 2.5 % (0.00-10.9); Hematocrit 42.8 VOL% (42.0-52.0); Hemoglobin 13.9 GM/DL (14.0-18.0); Immature Granulocytes % 0.5 %; Immature Granulocytes Absolute 0.02 #; Lymphocytes # 1.3 10*3/uL (1.4-4.0); Lymphocytes % 30.2 % (21.2-54.2); Mean Corpuscular HGB Conc 32.5 GM/DL (32-36); Mean Corpuscular Volume 88.4 FL (87-102); Mean Platelet Volume 10.1 FL (9.6-12.0); Monocytes % 13.3 % (1.7-12.7); Neutrophils % 52.6 % (38.7-73.9); Platelet Count 117 T/CUMM (130-400); Red Blood Count 4.84 MC/CUMM (3.8-5.5); Red Cell Distribution Width 14.1 % (9.3-17.3); White Blood Count 4.4 T/CUMM (4-12)
[2019-01-05 18:13] LABS: Partial Thromboplastin Time 28.3 SECS (20.8-36.0)
[2019-01-05 18:18] LABS: INR 3.1
[2019-01-05 18:20] LABS: PT Patient Result 33.1 SECS (9.6-12.2)
[2019-01-05 18:26] LABS: Albumin 3.6 G/DL (3.4-5.0); Bilirubin,Total 1.1 MG/DL (0.2-1.0); Calcium 8.3 MG/DL (8.5-10.1); Osmolality,Calculated 285.8 MOS/KG (273-304); Total Protein 7.4 G/DL (6.4-8.3)
[2019-01-05] MEDS ORDERED: DOCUSATE SODIUM 100 MG CAPSULE PO PRN (18:31)
[2019-01-05] MEDS ORDERED: LACTULOSE 20 GM/30 ML UDCUP PO PRN (18:31)
[2019-01-05] MEDS ORDERED: ONDANSETRON 4 MG/2 ML VIAL IV PRN (18:31)
[2019-01-05] MEDS: PANTOPRAZOLE 40 MG TABLET PO SCH (20:16)
[2019-01-05] MEDS: DILTIAZEM CD 180 MG CAPSULE PO SCH (20:16)
[2019-01-05] MEDS: ENOXAPARIN 100 MG/ML SYRINGE SUBCUT SCH (22:29)
[2019-01-06 05:48] LABS: Basophils % 0.8 % (0.0-0.8); Eosinophils # 0.2 10*3/uL (0.0-0.87); Hemoglobin 14.1 GM/DL (14.0-18.0); Immature Granulocytes % 0.2 %; Immature Granulocytes Absolute 0.01 #; Lymphocytes % 39.5 % (21.2-54.2); Mean Corpuscular HGB Conc 32.8 GM/DL (32-36); Mean Corpuscular Volume 88.7 FL (87-102); Mean Platelet Volume 10.2 FL (9.6-12.0); Monocytes % 13.8 % (1.7-12.7); Neutrophils % 42.7 % (38.7-73.9); Platelet Count 119 T/CUMM (130-400); Red Blood Count 4.85 MC/CUMM (3.8-5.5); Red Cell Distribution Width 13.9 % (9.3-17.3)
[2019-01-06] MEDS ORDERED: LEVOTHYROXINE 100 MCG TABLET PO SCH (06:30)
[2019-01-06 06:41] LABS: Albumin 3.3 G/DL (3.4-5.0); Bilirubin,Total 1.5 MG/DL (0.2-1.0); Calcium 8.4 MG/DL (8.5-10.1); Osmolality,Calculated 281.3 MOS/KG (273-304)
[2019-01-06] MEDS ORDERED: carvediloL 25 MG TABLET PO SCH (08:00)
[2019-01-06] MEDS ORDERED: AMIODARONE 200 MG TABLET PO SCH (09:00)
[2019-01-06] MEDS ORDERED: LISINOPRIL 10 MG TABLET PO SCH (09:00)
[2019-01-06] MEDS: ENOXAPARIN 100 MG/ML SYRINGE SUBCUT SCH (09:12)
[2019-01-06] MEDS: PANTOPRAZOLE 40 MG TABLET PO SCH (09:14)
[2019-01-06] MEDS: DILTIAZEM CD 180 MG CAPSULE PO SCH (09:14)
[2019-01-06] MEDS ORDERED: POTASSIUM CHLORIDE 20 MEQ TABLET PO ONE (09:57)
[2019-01-06 12:05] VITALS: BP 125/86
[2019-01-06] MEDS ORDERED: DIGOXIN 0.125 MG TABLET PO SCH (13:00)
== END 2019-01-06 15:22 | disposition home or self-care (01) ==
LOC: EDBD → EDUNIT# → N.EDINP 16:59 → N.ED 16:59 → N.EDINP 19:48 → N.2E 19:57
PROVIDERS: ADMIT Hospitalist; ATTEND Hospitalist

== ENCOUNTER 2019-01-28 08:23 | Observation (INO) ==
[2019-01-28] MEDS ORDERED: ENOXAPARIN 100 MG/ML SYRINGE SUBCUT STA (09:51)
[2019-01-28] MEDS ORDERED: ONDANSETRON 4 MG/2 ML VIAL IV STA (09:51)
[2019-01-28] MEDS ORDERED: ALBUTEROL/IPRATROPIUM 3 ML NEB RESP TX STA (09:51)
[2019-01-28] MEDS ORDERED: FUROSEMIDE 40 MG/4 ML VIAL IV STA (09:51)
[2019-01-28 11:07] LABS: Basophils % 1.1 % (0.0-0.8); Eosinophils # 0.1 10*3/uL (0.0-0.87); Eosinophils % 2.7 % (0.00-10.9); Hemoglobin 12.8 GM/DL (14.0-18.0); Immature Granulocytes % 0.3 %; Immature Granulocytes Absolute 0.01 #; Lymphocytes % 27.8 % (21.2-54.2); Mean Corpuscular Volume 90.5 FL (87-102); Mean Platelet Volume 9.5 FL (9.6-12.0); Monocytes % 14.9 % (1.7-12.7); Neutrophils % 53.2 % (38.7-73.9); Platelet Count 199 T/CUMM (130-400); Red Blood Count 4.42 MC/CUMM (3.8-5.5); Red Cell Distribution Width 13.8 % (9.3-17.3); White Blood Count 3.7 T/CUMM (4-12)
[2019-01-28 11:24] LABS: Hypochromasia 1+; Microcytosis Slight; Platelet Estimate Adequate
[2019-01-28 11:29] LABS: Albumin 3.7 G/DL (3.4-5.0); Calcium 8.4 MG/DL (8.5-10.1); Osmolality,Calculated 280.1 MOS/KG (273-304)
[2019-01-28 11:31] LABS: INR 3.1
[2019-01-28 11:34] LABS: PT Patient Result 33.8 SECS (9.6-12.2)
[2019-01-28] MEDS ORDERED: ONDANSETRON 4 MG/2 ML VIAL IV PRN (11:51)
[2019-01-28] MEDS ORDERED: ACETAMINOPHEN 325 MG TABLET PO PRN (11:51)
[2019-01-28] MEDS ORDERED: MORPHINE 4 MG/1 ML VIAL IV PRN (12:56)
[2019-01-28] MEDS: carvediloL 25 MG TABLET PO SCH (17:42)
[2019-01-28] MEDS: DILTIAZEM CD 180 MG CAPSULE PO SCH (20:14)
[2019-01-28] MEDS: ENOXAPARIN 100 MG/ML SYRINGE SUBCUT SCH (22:33)
[2019-01-29] MEDS ORDERED: LEVOTHYROXINE 100 MCG TABLET PO SCH (07:00)
[2019-01-29] MEDS ORDERED: FUROSEMIDE 40 MG TABLET PO SCH (09:00)
[2019-01-29] MEDS ORDERED: LISINOPRIL 10 MG TABLET PO SCH (09:00)
[2019-01-29] MEDS ORDERED: AMIODARONE 200 MG TABLET PO SCH (09:00)
[2019-01-29] MEDS: carvediloL 25 MG TABLET PO SCH (09:03)
[2019-01-29] MEDS: DILTIAZEM CD 180 MG CAPSULE PO SCH (09:03)
[2019-01-29] MEDS: ENOXAPARIN 100 MG/ML SYRINGE SUBCUT SCH (10:18)
[2019-01-29 12:57] VITALS: BP 123/63
[2019-01-29] MEDS ORDERED: DIGOXIN 0.125 MG TABLET PO SCH (13:00)
== END 2019-01-29 15:37 | disposition home or self-care (01) ==
LOC: EDBD → EDUNIT# → N.ED 08:23 → N.EDINP 08:23 → N.2W 13:56
PROVIDERS: ADMIT Hospitalist; ATTEND Hospitalist

== ENCOUNTER 2020-01-22 10:16 | Inpatient (IN) ==
[2020-01-22] MEDS ORDERED: SODIUM CHLORIDE 0.9% 1,000 ML IV STA (11:05)
[2020-01-22 12:19] LABS: Basophils % 0.1 % (0.0-0.8); Hematocrit 48.6 VOL% (42.0-52.0); Hemoglobin 15.8 GM/DL (14.0-18.0); Immature Granulocytes Absolute 0.15 #; Lymphocytes # 0.7 10*3/uL (1.4-4.0); Lymphocytes % 9.5 % (21.2-54.2); Mean Corpuscular HGB Conc 32.5 GM/DL (32-36); Mean Corpuscular Volume 88.8 FL (87-102); Mean Platelet Volume 10.9 FL (9.6-12.0); Monocytes % 9.2 % (1.7-12.7); NRBC # 0.02 10*3/uL; Neutrophils % 79.2 % (38.7-73.9); Red Blood Count 5.47 MC/CUMM (3.8-5.5); Red Cell Distribution Width 14.4 % (9.3-17.3); White Blood Count 7.5 T/CUMM (4-12)
[2020-01-22 12:32] LABS: Platelet Count 76 T/CUMM (130-400)
[2020-01-22 12:46] LABS: Lymphocytes 9 % (20-55); Platelet Estimate Decreased; Segmented Neutrophils 84 % (50-85); Total Cells Counted 100
[2020-01-22 12:47] LABS: Microcytosis Slight
[2020-01-22 13:51] LABS: Partial Thromboplastin Time 33.6 SECS (23.9-33.8)
[2020-01-22 13:55] LABS: PT Patient Result 30.5 SECS (9.8-11.9)
[2020-01-22 13:59] LABS: Alanine Aminotransferase 51 U/L (16-61); Albumin 2.9 G/DL (3.4-5.0); Alkaline Phosphatase 95 U/L (45-117); Aspartate Amino Transferase 98 U/L (0-37); Blood Urea Nitrogen 32 MG/DL (7-18); Calcium 8.2 MG/DL (8.5-10.1); Estimated Glom Filtration Rate 63 ML/MIN; Glucose 100 MG/DL (74-106); Osmolality,Calculated 287.3 MOS/KG (273-304); Troponin I 0.039 NG/ML (0.00-0.045)
[2020-01-22 14:09] LABS: Thyroid Stimulating Hormone 5.22 uIU/ml (0.358-3.74)
[2020-01-22 14:50] LABS: Bilirubin,Urine Negative (Negative); Blood, Urine Moderate mg/dL (Negative); Glucose,Urine (UA) Negative (Negative); Granular Casts,Urine 4 /LPF (0-1); Ketones,Urine Negative (Negative); Mucus,Urine Occasional /LPF (Occasional); Nitrite,Urine Negative (Negative); Protein,Urine 100 MG/DL; RBC,Urine 1 /HPF (0-4); Squamous Epithelial Cell,Urine Occasional /HPF (0-10); Urine Appearance Slightly Hazy (Clear); Urine Color Yellow (Yellow); Urine Specific Gravity 1.021 (1.001-1.035); Urine Urobilinogen < 2.0 EU/DL (0.2-1.0); WBC,Urine 2 /HPF (0-6)
[2020-01-22] MEDS ORDERED: ALUMINUM/MAGNES/SIMETH MAX STR 30 ML UDCUP PO PRN (14:50)
[2020-01-22] MEDS ORDERED: guaiFENesin/DM ER 600-30 MG TABLET PO PRN (14:50)
[2020-01-22] MEDS ORDERED: PROMETHAZINE 25 MG TABLET PO PRN (14:50)
[2020-01-22] MEDS ORDERED: ACETAMINOPHEN 325 MG TABLET PO PRN (14:50)
[2020-01-22] MEDS ORDERED: DOCUSATE SODIUM 100 MG CAPSULE PO PRN (14:50)
[2020-01-22] MEDS ORDERED: ONDANSETRON 4 MG/2 ML VIAL IV PRN (14:50)
[2020-01-22] MEDS ORDERED: ENOXAPARIN 100 MG/ML SYRINGE SUBCUT SCH (15:00)
[2020-01-22] MEDS ORDERED: AZITHROMYCIN 250 MG TABLET PO ONE (15:38)
[2020-01-22] MEDS: DEXAMETHASONE 4 MG/1 ML VIAL IV SCH (16:20)
[2020-01-22] MEDS: ENOXAPARIN 100 MG/ML SYRINGE SUBCUT SCH (16:20)
[2020-01-22 17:20] LABS: ABG Base Excess -3.4 MMOL/L (-2.5-2.5); ABG HCO3 21.2 MMOL/L (20-26); ABG Oxygen Saturation 81.3 % (95-100); ABG PCO2 35.5 MM HG (35-48); ABG TCO2 17.8 MMOL/L (23-27); Pt O2 Delivery Device Other
[2020-01-23 08:48] LABS: Basophils % 0.3 % (0.0-0.8); Hematocrit 47.7 VOL% (42.0-52.0); Hemoglobin 16.1 GM/DL (14.0-18.0); Immature Granulocytes % 5.1 %; Immature Granulocytes Absolute 0.47 #; Lymphocytes # 0.8 10*3/uL (1.4-4.0); Lymphocytes % 8.9 % (21.2-54.2); Mean Corpuscular HGB Conc 33.8 GM/DL (32-36); Mean Corpuscular Volume 87.2 FL (87-102); Mean Platelet Volume 12.3 FL (9.6-12.0); Monocytes % 6.1 % (1.7-12.7); NRBC # 0.08 10*3/uL; Neutrophils % 79.6 % (38.7-73.9); Platelet Count 70 T/CUMM (130-400); Red Blood Count 5.47 MC/CUMM (3.8-5.5); Red Cell Distribution Width 14.6 % (9.3-17.3); White Blood Count 9.2 T/CUMM (4-12)
[2020-01-23] MEDS: CHOLECALCIFEROL 1,000 UNIT TABLET PO SCH (09:29)
[2020-01-23] MEDS: DEXAMETHASONE 4 MG/1 ML VIAL IV SCH (09:29)
[2020-01-23] MEDS: ZINC GLUCONATE 50 MG TABLET PO SCH (09:29)
[2020-01-23] MEDS: ENOXAPARIN 100 MG/ML SYRINGE SUBCUT SCH (09:29)
[2020-01-23] MEDS: DIGOXIN 0.125 MG TABLET PO SCH (09:29)
[2020-01-23] MEDS: LEVOTHYROXINE 100 MCG TABLET PO SCH (09:29)
[2020-01-23] MEDS: DILTIAZEM CD 180 MG CAPSULE PO SCH ×2 (09:29→20:21)
[2020-01-23 09:44] LABS: Albumin 2.9 G/DL (3.4-5.0); Bilirubin,Total 1.9 MG/DL (0.2-1.0); Calcium 8.4 MG/DL (8.5-10.1); Ferritin 477.8 ng/ml (26-388); Osmolality,Calculated 289.1 MOS/KG (273-304); Total Protein 8.1 G/DL (6.4-8.3)
[2020-01-23 10:06] LABS: Band Neutrophils 1 % (0-10); Lymphocytes 6 % (20-55); Platelet Estimate Decreased; Segmented Neutrophils 81 % (50-85); Total Cells Counted 100
[2020-01-23 10:07] LABS: Microcytosis Slight
[2020-01-23 10:09] LABS: Sedimentation Rate-Westergren 14 MM/HR (0-15)
[2020-01-23] MEDS: AZITHROMYCIN 250 MG TABLET PO SCH (10:23)
[2020-01-23] MEDS: ASCORBIC ACID 500 MG TABLET PO SCH (10:23)
[2020-01-24 04:45] LABS: ABG Base Excess -3.8 MMOL/L (-2.5-2.5); ABG HCO3 18.6 MMOL/L (20-26); ABG Oxygen Saturation 89.9 % (95-100); ABG PCO2 28.1 MM HG (35-48); ABG PH 7.438 (7.35-7.45); ABG PO2 60.3 MM HG (80-95); ABG TCO2 19.4 MMOL/L (23-27)
[2020-01-24 04:46] LABS: Allen Test Positive; Pt O2 Delivery Device Other
[2020-01-24 07:05] LABS: Basophils # 0.1 10*3/uL (0.0-0.2); Basophils % 0.4 % (0.0-0.8); Hematocrit 51.9 VOL% (42.0-52.0); Immature Granulocytes % 3.6 %; Lymphocytes # 0.9 10*3/uL (1.4-4.0); Lymphocytes % 6.3 % (21.2-54.2); Mean Corpuscular HGB Conc 32.8 GM/DL (32-36); Mean Corpuscular Volume 88.6 FL (87-102); Mean Platelet Volume 12.8 FL (9.6-12.0); Monocytes % 5.4 % (1.7-12.7); Neutrophils % 84.3 % (38.7-73.9); Red Blood Count 5.86 MC/CUMM (3.8-5.5); Red Cell Distribution Width 14.7 % (9.3-17.3); White Blood Count 13.8 T/CUMM (4-12)
[2020-01-24 07:07] LABS: Platelet Count 77 T/CUMM (130-400)
[2020-01-24 07:26] LABS: Calcium 8.7 MG/DL (8.5-10.1); Osmolality,Calculated 291.1 MOS/KG (273-304)
[2020-01-24 07:27] LABS: Lymphocytes 3 % (20-55); Platelet Estimate Decreased; Segmented Neutrophils 92 % (50-85); Total Cells Counted 100
[2020-01-24 07:28] LABS: Microcytosis Slight
[2020-01-24] MEDS: DILTIAZEM CD 180 MG CAPSULE PO SCH (09:49)
[2020-01-24] MEDS: DEXAMETHASONE 4 MG/1 ML VIAL IV SCH (09:50)
[2020-01-24] MEDS: ZINC GLUCONATE 50 MG TABLET PO SCH (09:50)
[2020-01-24] MEDS: CHOLECALCIFEROL 1,000 UNIT TABLET PO SCH (09:50)
[2020-01-24] MEDS: DIGOXIN 0.125 MG TABLET PO SCH (09:50)
[2020-01-24] MEDS: ASCORBIC ACID 500 MG TABLET PO SCH (09:50)
[2020-01-24] MEDS: LEVOTHYROXINE 100 MCG TABLET PO SCH (09:50)
[2020-01-24] MEDS: AZITHROMYCIN 250 MG TABLET PO SCH (09:51)
[2020-01-24] MEDS: CEFEPIME 1,000 MG in SODIUM CHLORIDE 0.9% 100 ML IV SCH ×3 (10:25→21:24)
[2020-01-24] MEDS ORDERED: ETOMIDATE 20 MG/10 ML VIAL IV ONE ×2 (12:09→12:32)
[2020-01-24] MEDS ORDERED: SUCCINYLCHOLINE 200 MG/10 ML VIAL ONE (12:09)
[2020-01-24 12:20] LABS: ABG HCO3 22.5 MMOL/L (20-26); ABG Oxygen Saturation 89.3 % (95-100); ABG PCO2 30.6 MM HG (35-48); ABG PH 7.439 (7.35-7.45); ABG TCO2 17.1 MMOL/L (23-27)
[2020-01-24] MEDS ORDERED: SODIUM CHLORIDE 0.9% 1,000 ML IV SCH (12:30)
[2020-01-24] MEDS ORDERED: SUCCINYLCHOLINE 200 MG/10 ML VIAL IV ONE (12:32)
[2020-01-24] MEDS: DILTIAZEM 90 MG TABLET PO SCH ×2 (13:20→19:10)
[2020-01-24] MEDS: methylPREDNISolone SOD SUC 40 MG/1 ML VIAL IV SCH ×2 (13:20→19:10)
[2020-01-24] MEDS: FAMOTIDINE 20 MG/2 ML VIAL IV SCH (13:22)
[2020-01-24 14:03] LABS: ABG Base Excess -4.6 MMOL/L (-2.5-2.5); ABG HCO3 20.6 MMOL/L (20-26); ABG Oxygen Saturation 95.3 % (95-100); ABG PCO2 32.6 MM HG (35-48); ABG PH 7.381 (7.35-7.45); ABG PO2 82.1 MM HG (80-95); Allen Test Positive; Pt O2 Delivery Device Ventilator
[2020-01-24] MEDS ORDERED: DEXTROSE 50% 25 GM/50 ML VIAL IV PRN (14:32)
[2020-01-24] MEDS ORDERED: GLUCAGON 1 MG VIAL IM PRN (14:32)
[2020-01-24] MEDS ORDERED: FUROSEMIDE 40 MG/4 ML VIAL IV ONE (15:14)
[2020-01-24] MEDS: INSULIN REGULAR 100 UNIT/ML SUBCUT SCH (18:57)
[2020-01-24] MEDS: ENOXAPARIN 100 MG/ML SYRINGE SUBCUT SCH (21:25)
[2020-01-25] MEDS: DILTIAZEM 90 MG TABLET PO SCH ×5 (00:36→17:30)
[2020-01-25] MEDS: FAMOTIDINE 20 MG/2 ML VIAL IV SCH (00:36)
[2020-01-25] MEDS: INSULIN REGULAR 100 UNIT/ML SUBCUT SCH ×4 (00:36→17:15)
[2020-01-25] MEDS: methylPREDNISolone SOD SUC 40 MG/1 ML VIAL IV SCH ×4 (00:37→18:13)
[2020-01-25 04:45] LABS: Allen Test Positive; Pt O2 Delivery Device Ventilator
[2020-01-25 04:46] LABS: ABG Base Excess -3.9 MMOL/L (-2.5-2.5); ABG HCO3 21.1 MMOL/L (20-26); ABG Oxygen Saturation 92.7 % (95-100); ABG PCO2 30.7 MM HG (35-48); ABG PH 7.408 (7.35-7.45); ABG PO2 68.8 MM HG (80-95); ABG TCO2 16.2 MMOL/L (23-27)
[2020-01-25] MEDS: CEFEPIME 1,000 MG in SODIUM CHLORIDE 0.9% 100 ML IV SCH ×3 (04:50→17:30)
[2020-01-25 06:50] LABS: Basophils % 0.2 % (0.0-0.8); Hematocrit 49.3 VOL% (42.0-52.0); Hemoglobin 16.1 GM/DL (14.0-18.0); Immature Granulocytes % 2.8 %; Immature Granulocytes Absolute 0.49 #; Lymphocytes # 0.7 10*3/uL (1.4-4.0); Lymphocytes % 4.2 % (21.2-54.2); Mean Corpuscular HGB Conc 32.7 GM/DL (32-36); Mean Corpuscular Volume 89.8 FL (87-102); Monocytes % 3.6 % (1.7-12.7); NRBC # 0.21 10*3/uL; Neutrophils % 89.2 % (38.7-73.9); Red Blood Count 5.49 MC/CUMM (3.8-5.5); Red Cell Distribution Width 15.5 % (9.3-17.3); White Blood Count 17.7 T/CUMM (4-12)
[2020-01-25 06:53] LABS: Platelet Count 67 T/CUMM (130-400)
[2020-01-25 07:07] LABS: Lymphocytes 3 % (20-55); Platelet Estimate Decreased; Segmented Neutrophils 94 % (50-85); Total Cells Counted 100
[2020-01-25 07:17] LABS: Bilirubin,Total 1.5 MG/DL (0.2-1.0); Calcium 8.4 MG/DL (8.5-10.1); Ferritin 381.5 ng/ml (26-388); Osmolality,Calculated 300.4 MOS/KG (273-304); Total Protein 8.1 G/DL (6.4-8.3)
[2020-01-25] MEDS: CHOLECALCIFEROL 1,000 UNIT TABLET PO SCH (08:06)
[2020-01-25] MEDS: ASCORBIC ACID 500 MG TABLET PO SCH (08:06)
[2020-01-25] MEDS: ENOXAPARIN 100 MG/ML SYRINGE SUBCUT SCH ×2 (08:06→20:05)
[2020-01-25] MEDS: ZINC GLUCONATE 50 MG TABLET PO SCH (08:06)
[2020-01-25] MEDS: DIGOXIN 0.125 MG TABLET PO SCH (08:07)
[2020-01-25] MEDS: AZITHROMYCIN 250 MG TABLET PO SCH (08:07)
[2020-01-25] MEDS: LEVOTHYROXINE 100 MCG TABLET PO SCH (08:07)
[2020-01-25] MEDS: SODIUM CHLORIDE 0.9% 1,000 ML IV SCH ×2 (12:20→21:41)
[2020-01-25 14:38] LABS: ABG Base Excess -4.6 MMOL/L (-2.5-2.5); ABG HCO3 20.2 MMOL/L (20-26); ABG Oxygen Saturation 80.6 % (95-100); ABG PCO2 34.2 MM HG (35-48); ABG PO2 49.2 MM HG (80-95); ABG TCO2 16.7 MMOL/L (23-27)
[2020-01-25 14:51] LABS: Pt O2 Delivery Device Ventilator
[2020-01-25 14:52] LABS: ABG Base Excess -5.7 MMOL/L (-2.5-2.5); ABG HCO3 19.8 MMOL/L (20-26); ABG Oxygen Saturation 96.2 % (95-100); ABG PCO2 37.3 MM HG (35-48); ABG PH 7.331 (7.35-7.45); ABG PO2 94.5 MM HG (80-95); ABG TCO2 16.7 MMOL/L (23-27)
[2020-01-26] MEDS: INSULIN REGULAR 100 UNIT/ML SUBCUT SCH ×4 (00:02→18:44)
[2020-01-26] MEDS: DILTIAZEM 90 MG TABLET PO SCH ×3 (00:02→12:06)
[2020-01-26] MEDS: methylPREDNISolone SOD SUC 40 MG/1 ML VIAL IV SCH ×4 (00:03→19:08)
[2020-01-26] MEDS: CEFEPIME 1,000 MG in SODIUM CHLORIDE 0.9% 100 ML IV SCH ×3 (01:13→18:45)
[2020-01-26] MEDS: SODIUM CHLORIDE 0.9% 1,000 ML IV SCH (01:31)
[2020-01-26] MEDS ORDERED: SODIUM CHLORIDE 0.9% 1,000 ML IV ONE (03:35)
[2020-01-26] MEDS ORDERED: NOREPINEPHRINE 4 MG/4 ML VIAL IV ONE ×2 (03:38→19:21)
[2020-01-26] MEDS: NOREPINEPHRINE 8 MG in SODIUM CHLORIDE 0.9% 242 ML IV PRN ×3 (03:39→19:35)
[2020-01-26 04:28] LABS: ABG Base Excess -10.5 MMOL/L (-2.5-2.5); ABG HCO3 16.3 MMOL/L (20-26); ABG Oxygen Saturation 99.4 % (95-100); ABG PCO2 48.5 MM HG (35-48); ABG TCO2 16.3 MMOL/L (23-27); Allen Test Positive; Pt O2 Delivery Device Ventilator
[2020-01-26 04:30] LABS: Basophils % 0.1 % (0.0-0.8); Hematocrit 44.3 VOL% (42.0-52.0); Immature Granulocytes % 3.6 %; Immature Granulocytes Absolute 0.76 #; Lymphocytes # 0.4 10*3/uL (1.4-4.0); Lymphocytes % 1.7 % (21.2-54.2); Mean Corpuscular HGB Conc 30.9 GM/DL (32-36); Mean Corpuscular Volume 93.9 FL (87-102); Mean Platelet Volume 12.4 FL (9.6-12.0); Monocytes % 2.3 % (1.7-12.7); NRBC # 0.36 10*3/uL; Neutrophils % 92.3 % (38.7-73.9); Red Blood Count 4.72 MC/CUMM (3.8-5.5); Red Cell Distribution Width 15.3 % (9.3-17.3); White Blood Count 20.9 T/CUMM (4-12)
[2020-01-26 04:31] LABS: ABG PH 7.186 (7.35-7.45)
[2020-01-26 04:36] LABS: Hemoglobin 13.7 GM/DL (14.0-18.0); Platelet Count 126 T/CUMM (130-400)
[2020-01-26 04:40] LABS: Albumin 2.3 G/DL (3.4-5.0); Bilirubin,Total 0.7 MG/DL (0.2-1.0); Calcium 6.9 MG/DL (8.5-10.1); Ferritin 262.4 ng/ml (26-388); Osmolality,Calculated 317.7 MOS/KG (273-304); Total Protein 6.2 G/DL (6.4-8.3)
[2020-01-26 04:41] LABS: Lymphocytes 2 % (20-55); Nucleated Red Blood Cells 2 (0-5); Segmented Neutrophils 94 % (50-85); Total Cells Counted 100
[2020-01-26] MEDS ORDERED: SODIUM BICARBONATE 50 MEQ/50 ML VIAL IV ONE (04:59)
[2020-01-26] MEDS: SODIUM BICARB INJ 50 MEQ in SODIUM CHLORIDE 0.45% 1,000 ML IV SCH ×2 (05:25→14:46)
[2020-01-26 06:23] LABS: ABG Base Excess -7.1 MMOL/L (-2.5-2.5); ABG HCO3 18.7 MMOL/L (20-26); ABG Oxygen Saturation 96.5 % (95-100); ABG PCO2 49.4 MM HG (35-48); ABG PH 7.237 (7.35-7.45); ABG TCO2 18.5 MMOL/L (23-27); Allen Test Positive; Pt O2 Delivery Device Ventilator
[2020-01-26] MEDS: ASCORBIC ACID 500 MG TABLET PO SCH (08:35)
[2020-01-26] MEDS: CHOLECALCIFEROL 1,000 UNIT TABLET PO SCH (08:36)
[2020-01-26] MEDS: AZITHROMYCIN 250 MG TABLET PO SCH (08:36)
[2020-01-26] MEDS: ENOXAPARIN 100 MG/ML SYRINGE SUBCUT SCH (08:36)
[2020-01-26] MEDS: DIGOXIN 0.125 MG TABLET PO SCH (08:37)
[2020-01-26] MEDS: LEVOTHYROXINE 100 MCG TABLET PO SCH (08:38)
[2020-01-26] MEDS: ZINC GLUCONATE 50 MG TABLET PO SCH (08:38)
[2020-01-26] MEDS: FAMOTIDINE 20 MG/2 ML VIAL IV SCH (08:38)
[2020-01-26 14:24] LABS: ABG Base Excess -3.1 MMOL/L (-2.5-2.5); ABG HCO3 21.7 MMOL/L (20-26); ABG Oxygen Saturation 90.6 % (95-100); ABG PH 7.353 (7.35-7.45); ABG PO2 63.9 MM HG (80-95)
[2020-01-27] MEDS: SODIUM BICARB INJ 50 MEQ in SODIUM CHLORIDE 0.45% 1,000 ML IV SCH (00:31)
[2020-01-27] MEDS: methylPREDNISolone SOD SUC 40 MG/1 ML VIAL IV SCH ×3 (01:00→17:57)
[2020-01-27] MEDS: INSULIN REGULAR 100 UNIT/ML SUBCUT SCH ×4 (01:33→17:57)
[2020-01-27] MEDS: CEFEPIME 1,000 MG in SODIUM CHLORIDE 0.9% 100 ML IV SCH ×3 (01:35→17:58)
[2020-01-27] MEDS: NOREPINEPHRINE 8 MG in SODIUM CHLORIDE 0.9% 242 ML IV PRN ×2 (03:46→21:33)
[2020-01-27 03:47] LABS: Basophils % 0.1 % (0.0-0.8); Hematocrit 44.2 VOL% (42.0-52.0); Hemoglobin 13.8 GM/DL (14.0-18.0); Immature Granulocytes % 1.7 %; Immature Granulocytes Absolute 0.41 #; Lymphocytes # 0.5 10*3/uL (1.4-4.0); Lymphocytes % 2.3 % (21.2-54.2); Mean Corpuscular HGB Conc 31.2 GM/DL (32-36); Mean Corpuscular Volume 92.7 FL (87-102); Mean Platelet Volume 11.9 FL (9.6-12.0); Monocytes % 3.9 % (1.7-12.7); NRBC # 0.11 10*3/uL; Platelet Count 160 T/CUMM (130-400); Red Blood Count 4.77 MC/CUMM (3.8-5.5); White Blood Count 23.7 T/CUMM (4-12)
[2020-01-27 04:09] LABS: Calcium 7.8 MG/DL (8.5-10.1); Ferritin 312.2 ng/ml (26-388); Osmolality,Calculated 344.3 MOS/KG (273-304)
[2020-01-27 04:26] LABS: ABG Base Excess -1.7 MMOL/L (-2.5-2.5); ABG HCO3 22.9 MMOL/L (20-26); ABG Oxygen Saturation 96.2 % (95-100); ABG PCO2 44.5 MM HG (35-48); ABG PH 7.345 (7.35-7.45); ABG PO2 89.4 MM HG (80-95); ABG TCO2 21.1 MMOL/L (23-27); Allen Test Positive; Pt O2 Delivery Device Ventilator
[2020-01-27 04:33] LABS: Band Neutrophils 1 % (0-10); Lymphocytes 4 % (20-55); Nucleated Red Blood Cells 2 (0-5); Segmented Neutrophils 93 % (50-85); Total Cells Counted 100
[2020-01-27 04:36] LABS: Platelet Estimate Normal
[2020-01-27 04:38] LABS: Microcytosis 1+; Polychromasia Slight
[2020-01-27 04:40] LABS: Schistocytes Slight; Target Cells Slight
[2020-01-27] MEDS: LEVOTHYROXINE 100 MCG TABLET PO SCH (08:49)
[2020-01-27] MEDS: CHOLECALCIFEROL 1,000 UNIT TABLET PO SCH (08:49)
[2020-01-27] MEDS: AZITHROMYCIN 250 MG TABLET PO SCH (08:49)
[2020-01-27] MEDS: ZINC GLUCONATE 50 MG TABLET PO SCH (08:49)
[2020-01-27] MEDS: ASCORBIC ACID 500 MG TABLET PO SCH (08:49)
[2020-01-27] MEDS: DIGOXIN 0.125 MG TABLET PO SCH (08:50)
[2020-01-27] MEDS: FAMOTIDINE 20 MG/2 ML VIAL IV SCH (08:50)
[2020-01-27] MEDS: ENOXAPARIN 100 MG/ML SYRINGE SUBCUT SCH (08:50)
[2020-01-27] MEDS: DEXTROSE 5% 1,000 ML IV SCH (10:34)
[2020-01-27 16:29] LABS: Calcium 8.2 MG/DL (8.5-10.1); Osmolality,Calculated 346.7 MOS/KG (273-304)
[2020-01-27] MEDS ORDERED: DIGOXIN 0.5 MG/2 ML AMP ONE (17:09)
[2020-01-27] MEDS ORDERED: DILTIAZEM 50 MG/10 ML VIAL IV ONE (17:15)
[2020-01-27] MEDS: DIGOXIN 0.5 MG/2 ML AMP IV SCH (17:16)
[2020-01-27 17:18] VITALS: BP 115/81
[2020-01-27] MEDS ORDERED: SODIUM ZIRCONIUM CYCLOSILICATE 10 GM PACK PO SCH (21:00)
[2020-01-28] MEDS: DIGOXIN 0.5 MG/2 ML AMP IV SCH ×2 (00:29→06:21)
[2020-01-28] MEDS: INSULIN REGULAR 100 UNIT/ML SUBCUT SCH ×5 (00:48→20:35)
[2020-01-28] MEDS: DEXTROSE 5% 1,000 ML IV SCH ×2 (01:34→06:21)
[2020-01-28] MEDS: CEFEPIME 1,000 MG in SODIUM CHLORIDE 0.9% 100 ML IV SCH ×2 (02:37→18:25)
[2020-01-28 04:04] LABS: Allen Test Positive; Pt O2 Delivery Device Ventilator
[2020-01-28 04:06] LABS: Basophils # 0.1 10*3/uL (0.0-0.2); Basophils % 0.2 % (0.0-0.8); Hematocrit 45.2 VOL% (42.0-52.0); Hemoglobin 13.7 GM/DL (14.0-18.0); Immature Granulocytes % 1.6 %; Immature Granulocytes Absolute 0.39 #; Lymphocytes # 0.6 10*3/uL (1.4-4.0); Lymphocytes % 2.3 % (21.2-54.2); Mean Corpuscular HGB Conc 30.3 GM/DL (32-36); Mean Corpuscular Volume 95.6 FL (87-102); Mean Platelet Volume 12.1 FL (9.6-12.0); Monocytes % 4.5 % (1.7-12.7); NRBC # 0.08 10*3/uL; Neutrophils % 91.4 % (38.7-73.9); Platelet Count 185 T/CUMM (130-400); Red Blood Count 4.73 MC/CUMM (3.8-5.5); Red Cell Distribution Width 16.2 % (9.3-17.3); White Blood Count 24.5 T/CUMM (4-12)
[2020-01-28 04:11] LABS: ABG Base Excess 0.4 MMOL/L (-2.5-2.5); ABG HCO3 24.9 MMOL/L (20-26); ABG Oxygen Saturation 95.4 % (95-100); ABG PCO2 39.7 MM HG (35-48); ABG PH 7.415 (7.35-7.45); ABG TCO2 26.1 MMOL/L (23-27)
[2020-01-28 04:46] LABS: Albumin 2.6 G/DL (3.4-5.0); Bilirubin,Total 0.8 MG/DL (0.2-1.0); Calcium 8.6 MG/DL (8.5-10.1); Ferritin 391.6 ng/ml (26-388); Osmolality,Calculated 355.2 MOS/KG (273-304); Total Protein 7.9 G/DL (6.4-8.3)
[2020-01-28] MEDS ORDERED: NOREPINEPHRINE 4 MG/4 ML VIAL IV ONE (04:53)
[2020-01-28] MEDS ORDERED: NOREPINEPHRINE 8 MG in DEXTROSE 5% 250 ML IV PRN (05:28)
[2020-01-28] MEDS: methylPREDNISolone SOD SUC 40 MG/1 ML VIAL IV SCH ×2 (06:30→17:45)
[2020-01-28 07:19] LABS: Band Neutrophils 2 % (0-10); Lymphocytes 4 % (20-55); Segmented Neutrophils 91 % (50-85); Total Cells Counted 100
[2020-01-28 07:20] LABS: Anisocytosis 1+; Hypochromasia 1+; Macrocytosis 1+; Platelet Estimate Normal; Target Cells 1+
[2020-01-28] MEDS: LEVOTHYROXINE 100 MCG TABLET PO SCH (08:41)
[2020-01-28] MEDS: ZINC GLUCONATE 50 MG TABLET PO SCH (08:41)
[2020-01-28] MEDS: CHOLECALCIFEROL 1,000 UNIT TABLET PO SCH (08:41)
[2020-01-28] MEDS: FAMOTIDINE 20 MG/2 ML VIAL IV SCH (08:42)
[2020-01-28] MEDS: ENOXAPARIN 100 MG/ML SYRINGE SUBCUT SCH (08:42)
[2020-01-28] MEDS: ASCORBIC ACID 500 MG TABLET PO SCH (08:42)
[2020-01-28] MEDS ORDERED: CEFEPIME 1,000 MG in DEXTROSE 5% 100 ML IV SCH (10:00)
[2020-01-28 11:55] LABS: Bacteria,Urine Occasional /HPF (Few); Bilirubin,Urine Negative (Negative); Blood, Urine Moderate mg/dL (Negative); Glucose,Urine (UA) >=500 mg/dL (Negative); Ketones,Urine Negative (Negative); Mucus,Urine Occasional /LPF (Occasional); Nitrite,Urine Negative (Negative); Protein,Urine Negative; RBC,Urine 1 /HPF (0-4); Urine Appearance Slightly Hazy (Clear); Urine Color Yellow (Yellow); Urine Specific Gravity 1.008 (1.001-1.035); Urine Urobilinogen < 2.0 EU/DL (0.2-1.0); WBC,Urine 1 /HPF (0-6)
[2020-01-28] MEDS: NOREPINEPHRINE 8 MG in SODIUM CHLORIDE 0.9% 242 ML IV PRN ×2 (11:56→21:50)
[2020-01-28] MEDS: MANNITOL IV SCH ×2 (12:35→21:13)
[2020-01-28] MEDS: POLYETHYLENE GLYCOL POWDER 17 GM PACK PO SCH ×2 (12:36→21:13)
[2020-01-28] MEDS: METOCLOPRAMIDE 10 MG/2 ML VIAL IV SCH ×2 (12:36→17:42)
[2020-01-28] MEDS: VASOPRESSIN 20 UNITS/ML VIAL SUBCUT SCH ×2 (12:37→21:14)
[2020-01-28 13:41] LABS: Calcium 8.8 MG/DL (8.5-10.1); Osmolality,Calculated 362.8 MOS/KG (273-304)
[2020-01-28] MEDS: SODIUM CHLORIDE 23.4% CONC INJ 38.5 MEQ in STERILE WATER INJ 1,000 ML IV SCH (14:24)
[2020-01-28] MEDS: hydroCHLOROthiazide 25 MG TABLET PO SCH (17:42)
[2020-01-28 20:46] LABS: Calcium 8.9 MG/DL (8.5-10.1); Osmolality,Calculated 357.6 MOS/KG (273-304)
[2020-01-29] MEDS: INSULIN REGULAR 100 UNIT/ML SUBCUT SCH ×3 (00:01→10:09)
[2020-01-29] MEDS: SODIUM CHLORIDE 23.4% CONC INJ 38.5 MEQ in STERILE WATER INJ 1,000 ML IV SCH ×3 (00:01→12:14)
[2020-01-29] MEDS: CEFEPIME 1,000 MG in SODIUM CHLORIDE 0.9% 100 ML IV SCH ×2 (01:10→10:46)
[2020-01-29] MEDS: METOCLOPRAMIDE 10 MG/2 ML VIAL IV SCH ×2 (01:10→06:13)
[2020-01-29] MEDS ORDERED: NOREPINEPHRINE 16 MG in SODIUM CHLORIDE 0.9% 234 ML IV PRN (02:34)
[2020-01-29] MEDS ORDERED: PHENYLEPHRINE DRIP 40 MG/250 ML PREMIX IV PRN (04:17)
[2020-01-29] MEDS: VASOPRESSIN 20 UNITS/ML VIAL SUBCUT SCH (04:20)
[2020-01-29] MEDS ORDERED: PHENYLEPHRINE DRIP 40 MG/250 ML PREMIX IV ONE (04:23)
[2020-01-29 04:40] LABS: ABG HCO3 25.2 MMOL/L (20-26); ABG Oxygen Saturation 94.5 % (95-100); ABG PCO2 42.1 MM HG (35-48); ABG PH 7.399 (7.35-7.45); ABG PO2 75.5 MM HG (80-95); ABG TCO2 22.9 MMOL/L (23-27); Allen Test Positive; Pt O2 Delivery Device Ventilator
[2020-01-29] MEDS ORDERED: DIGOXIN 0.5 MG/2 ML AMP IV SCH (05:00)
[2020-01-29 05:01] LABS: Basophils % 0.2 % (0.0-0.8); Eosinophils % 0.1 % (0.00-10.9); Hematocrit 41.8 VOL% (42.0-52.0); Mean Corpuscular HGB Conc 29.2 GM/DL (32-36); Red Cell Distribution Width 17.2 % (9.3-17.3)
[2020-01-29 05:22] LABS: Immature Granulocytes % 1.8 %; Immature Granulocytes Absolute 0.35 #; Lymphocytes % 5.3 % (21.2-54.2); Mean Corpuscular Volume 98.8 FL (87-102); Mean Platelet Volume 11.7 FL (9.6-12.0); Monocytes % 3.4 % (1.7-12.7); NRBC # 0.38 10*3/uL; Neutrophils % 89.2 % (38.7-73.9); Platelet Count 186 T/CUMM (130-400); Red Blood Count 4.23 MC/CUMM (3.8-5.5); White Blood Count 19.1 T/CUMM (4-12)
[2020-01-29 05:25] LABS: Hemoglobin 12.2 GM/DL (14.0-18.0)
[2020-01-29 05:30] LABS: Albumin 2.2 G/DL (3.4-5.0); Bilirubin,Total 0.9 MG/DL (0.2-1.0); Calcium 8.6 MG/DL (8.5-10.1); Osmolality,Calculated 353.6 MOS/KG (273-304); Total Protein 7.4 G/DL (6.4-8.3)
[2020-01-29] MEDS: methylPREDNISolone SOD SUC 40 MG/1 ML VIAL IV SCH (06:13)
[2020-01-29] MEDS: hydroCHLOROthiazide 25 MG TABLET PO SCH (09:45)
[2020-01-29] MEDS: ASCORBIC ACID 500 MG TABLET PO SCH (09:45)
[2020-01-29] MEDS: ZINC GLUCONATE 50 MG TABLET PO SCH (09:46)
[2020-01-29] MEDS: LEVOTHYROXINE 100 MCG TABLET PO SCH (09:46)
[2020-01-29] MEDS: CHOLECALCIFEROL 1,000 UNIT TABLET PO SCH (09:46)
[2020-01-29] MEDS: FAMOTIDINE 20 MG/2 ML VIAL IV SCH (09:46)
[2020-01-29] MEDS: POLYETHYLENE GLYCOL POWDER 17 GM PACK PO SCH (09:47)
[2020-01-29] MEDS ORDERED: MORPHINE 4 MG/1 ML VIAL IV PRN (11:21)
== END 2020-01-29 11:57 | disposition expired | DRG 870 ==
LOC: EDUNIT# → N.ED 10:16 → N.EDINP 14:50 → SUATTDRO 14:50 → N.2E 17:45 → N.ICU 01-24 11:08 → N.CC 01-24 20:16
PROVIDERS: ADMIT Family Medicine; ATTEND Internal Medicine